=== PATIENT | male | born 1945 | race Caucasian/White ===

== ENCOUNTER → 2017-11-05 10:41 | Outpatient (CLI) | payer MEDICARE, OTHER, SELFPAY ==
--- NOTE | 2017-11-05 10:48 | XR_ITS ---
EXAM: XR lumbar spine min 4V HISTORY: Back pain and ORDERING PHYSICIAN: Michael Tejeda PATIENT AGE: 72 years COMPARISON: None FINDINGS: A prominent flowing osteophytes are present involving the lumbar spine from L1 to S1 most prominent at L2-L3 and L5-S1 hypertrophic changes also noted involving the heads from L3 to S1. No fracture or dislocation. There may be be narrowing of the canal at L4-L5 and L5-S1. There is fusion of the SI joints on both sides. IMPRESSION: Diffuse idiopathic skeletal hyperostosis of the lumbar spine. No acute fracture. Bilateral sacroiliac fusion Possible canal stenosis in the lower lumbar spine which may be confirmed with MRI
--- NOTE | 2017-11-05 10:50 | XR_ITS ---
XR pelvis 1-2V HISTORY: Right hip pain ITS.REASON: RT HIP PAIN,RT BACK PAIN ORDERING PHYSICIAN: Michael Tejeda PATIENT AGE: 72 years COMPARISON: None FINDINGS: No obvious acute fracture or dislocation. There is fusion of at least the right SI joint. Hypertrophic changes are present along the inferior aspect of the superior pubic rami. There are mild osteoarthritic changes of the hips. IMPRESSION: No acute finding. 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
== END ==
PROVIDERS: PCP Internal Medicine; Visit Provider Internal Medicine
DX: M25.551 Pain in right hip (principal); M54.5 Low back pain; R10.2 Pelvic and perineal pain
CPT/HCPCS: 72110; 72170

== ENCOUNTER → 2017-11-12 15:51 | Outpatient (CLI) | payer MEDICARE, OTHER, SELFPAY ==
--- NOTE | 2017-11-12 15:55 | MR_ITS ---
MR lumbar spine wo con, The MR 3-d myelogram/MRCP HISTORY: Low back pain, right side sciatica, right hip pain ITS.REASON: LUMBAGO RIGHT SCIATICA ORDERING PHYSICIAN: Michael Tejeda PATIENT AGE: 72 years COMPARISON: Radiograph 11/05/2017 TECHNIQUE: Standard multiplanar multiecho sequences are performed without contrast. 3-D MIP and myelographic images are also rendered and reviewed FINDINGS: The spinal cord ends at the L1-L2 level. There is normal alignment. There are prominent bridging osteophytes anteriorly consistent with diffuse etiopathic skeletal hyperostosis T12-L1: Unremarkable. L1-L2: Mild disc desiccation with mild facet and ligamentum flavum hypertrophy with minimal right lateral recess narrowing. L2-L3: Facet and ligamentum flavum hypertrophy with bilateral lateral recess narrowing L3-L4: Facet and ligamentum hypertrophy with mild transverse narrowing of the canal with mild bilateral foraminal and lateral recess narrowing. L4-L5: Degenerative disc disease with bulging disc along with the facet and ligamentum flavum hypertrophy with moderate to severe bilateral lateral recess narrowing and severe left-sided foraminal narrowing. There is 2 mm anterolisthesis of L4. There is a left lateral disc osteophyte complex contributing to the foraminal narrowing. There is a prominent bridging osteophyte anteriorly and on the right. L5-S1: Degenerative disc disease with bulging disc along with facet and ligamentum flavum hypertrophy . There is minimal central disc protrusion. There is transverse narrowing of the canal. Right lateral foraminal narrowing is present from a disc osteophyte complex. There may be some impingement upon the exiting L5 nerve root. IMPRESSION: 1. DISH of the lumbar spine 2. Multilevel degenerative disc disease with facet and ligamentum flavum hypertrophy as described above. Please see above detailed description at each level. 3. Degenerative disc disease at L4-L5 with bulging disc along with the facet and ligamentum flavum hypertrophy with moderate to severe bilateral lateral recess narrowing and severe left-sided foraminal narrowing. There is 2 mm anterolisthesis of L4. There is a left lateral disc osteophyte complex contributing to the foraminal narrowing. There is a prominent bridging osteophyte anteriorly and on the right. 4. Degenerative disc disease at L5-S1 with bulging disc along with facet and ligamentum flavum hypertrophy . There is minimal central disc protrusion. There is transverse narrowing of the canal. Right lateral foraminal narrowing is present from a disc osteophyte complex. There may be some impingement upon the exiting L5 nerve root.
== END ==
PROVIDERS: Family Provider Internal Medicine; PCP Internal Medicine; Visit Provider Internal Medicine
DX: M54.41 Lumbago with sciatica, right side (principal)
CPT/HCPCS: 72148; 76376

== ENCOUNTER → 2017-12-07 11:04 | Outpatient (POV) | payer MEDICARE, OTHER, SELFPAY ==
[2017-12-07 11:18] VITALS: BP 150/88; PULSE 72; RESP 20; O2SAT 98; BMI 32.8
--- NOTE | 2017-12-07 12:07 | HMH.PMCON ---
Assessment and Plan (1) Piriformis syndrome Current visit: Yes Status: Chronic Category: Medical Code(s): G57.00 - Lesion of sciatic nerve, unspecified lower limb (2) Facet arthropathy Current visit: Yes Status: Chronic Category: Medical Code(s): M46.90 - Unspecified inflammatory spondylopathy, site unspecified (3) Degenerative disc disease, lumbar Current visit: Yes Status: Chronic Category: Medical Code(s): M51.36 - Other intervertebral disc degeneration, lumbar region (4) Bulging disc Current visit: Yes Status: Chronic Category: Medical - Assessment and plan all Dx Assessment and Plan for all problems:: Patient and I had a long discussion about his MRI. I explained about his bulging disks and facet arthropathy. We discussed multiple injections. We also discussed his tenderness over his right piriformis. I believe that starting with a facet joint injection L3-L4 L4-L5 L5-S1 on the right side will help us determine better where his pain is coming from. Believe that this would be appropriate due to is axial nature of his back pain. We discussed potentially doing a piriformis injection at some point. I want to follow-up with him after his facet joint injections to see if this is relieved any of his pain. Patient has tried and failed anti-inflammatories and chiropractic therapy and stretching therapy. Patient would like to remain active and play tennis and pickleball. Patient and I discussed if his facet joint injections relieve the pain that we may eventually do a rhizotomy of these levels. This note was dictated using voice recognition software and may contain errors or omissions HPI - Data of Consult Consult date: 12/07/17 Requesting Physician: Perla Reyna APRN Primary Care Provider: Michael Tejeda [facility] Provider: Michael Tejeda - Consult Narrative Reason for consult: Back pain History of present illness: Mr. Douglas is a 72 year old male presents today with a complaint of back pain mostly on the right lower side. Patient states that the onset was gradual in nature. Movement increases pain while sitting decreases pain. Patient denies any radiation into his lower legs. Patient is currently on Plavix from Dr. Tejeda. Patient is interested in discussing his MRI results and finding interventional therapies that help keep him more active. He rates his pain a 7 out of 10 today. CC: Perla Reyna APRN [facility] History I have reviewed the patient's past medical history: Yes Medical History: Reports:: Diabetes Mellitus Type 2, Hyperlipidemia, Hypertension, Myocardial Infarction (09/01/1999) Denies:: Diabetes Mellitus Type 1 Other Surgeries: Yes: Cardiac Catheterization, Cardiac Surgery, Coronary Stent - *Social History Educational Level: Attended Graduate School Smoking Status: Never smoker Alcohol Intake: never Occupational Status: employed - Psychiatric History Expresses thoughts of harming self/others: None Suicide Plan Description: No Plan *Family Hx:: Non-contributory Review of Systems - Review of Systems ROS General: no recent weight change, no fever, no sleep disturbances Respiratory: no cough, no shortness of air, no recurring pulmonary infections Cardiovascular/Peripheral Vascular: No chest pain, No palpitations, no edema, no shortness of breath. Gastrointestinal: no incontinence, normal bowel movements reported Genitourinary: no incontinence Musculoskeletal: Back pain, right buttock pain Psychiatric: normal mood/ affect, [denies depression], [denies anxiety] Neurological: [Weakness at time in right lower extremity], [denies balance issues] Meds Home Medications Medication Instructions Recorded Confirmed Type Amlodipine Besylate [Norvasc 5mg 5 mg PO DAILY 12/07/17 12/07/17 History tablet] Clopidogrel Bisulfate [Plavix] 75 mg PO DAILY 12/07/17 12/07/17 History Empagliflozin [Jardiance] 25 mg PO DAILY 12/07/17 12/07/17 History Feno
--- NOTE | 2017-12-07 12:15 | P.CONS_ITS ---
Assessment and Plan (1) Piriformis syndrome Current visit: Yes Status: Chronic Category: Medical Code(s): G57.00 - Lesion of sciatic nerve, unspecified lower limb (2) Facet arthropathy Current visit: Yes Status: Chronic Category: Medical Code(s): M46.90 - Unspecified inflammatory spondylopathy, site unspecified (3) Degenerative disc disease, lumbar Current visit: Yes Status: Chronic Category: Medical Code(s): M51.36 - Other intervertebral disc degeneration, lumbar region (4) Bulging disc Current visit: Yes Status: Chronic Category: Medical - Assessment and plan all Dx Assessment and Plan for all problems:: Patient and I had a long discussion about his MRI. I explained about his bulging disks and facet arthropathy. We discussed multiple injections. We also discussed his tenderness over his right piriformis. I believe that starting with a facet joint injection L3-L4 L4-L5 L5-S1 on the right side will help us determine better where his pain is coming from. Believe that this would be appropriate due to is axial nature of his back pain. We discussed potentially doing a piriformis injection at some point. I want to follow-up with him after his facet joint injections to see if this is relieved any of his pain. Patient has tried and failed anti-inflammatories and chiropractic therapy and stretching therapy. Patient would like to remain active and play tennis and pickleball. Patient and I discussed if his facet joint injections relieve the pain that we may eventually do a rhizotomy of these levels. This note was dictated using voice recognition software and may contain errors or omissions HPI - Data of Consult Consult date: 12/07/17 Requesting Physician: Perla Reyna APRN Primary Care Provider: Michael Tejeda [facility] Provider: Michael Tejeda - Consult Narrative Reason for consult: Back pain History of present illness: Mr. Douglas is a 72 year old male presents today with a complaint of back pain mostly on the right lower side. Patient states that the onset was gradual in nature. Movement increases pain while sitting decreases pain. Patient denies any radiation into his lower legs. Patient is currently on Plavix from Dr. Tejeda. Patient is interested in discussing his MRI results and finding interventional therapies that help keep him more active. He rates his pain a 7 out of 10 today. CC: Perla Reyna APRN [facility] History I have reviewed the patient's past medical history: Yes Medical History: Reports:: Diabetes Mellitus Type 2, Hyperlipidemia, Hypertension, Myocardial Infarction (09/01/1999) Denies:: Diabetes Mellitus Type 1 Other Surgeries: Yes: Cardiac Catheterization, Cardiac Surgery, Coronary Stent - *Social History Educational Level: Attended Graduate School Smoking Status: Never smoker Alcohol Intake: never Occupational Status: employed - Psychiatric History Expresses thoughts of harming self/others: None Suicide Plan Description: No Plan *Family Hx:: Non-contributory Review of Systems - Review of Systems ROS General: no recent weight change, no fever, no sleep disturbances Respiratory: no cough, no shortness of air, no recurring pulmonary infections Cardiovascular/Peripheral Vascular: No chest pain, No palpitations, no edema, no shortness of breath. Gastrointestinal: no incontinence, normal bowel movements reported Genitourinary: no incontinence Musculoskeletal: Back pain, right buttock pain Psychiatric: normal mood/ affect, [denies depression], [denies anxiety]
== END ==
PROVIDERS: Family Provider Internal Medicine; PCP Internal Medicine; Visit Provider Clinical Nurse Specialist Family Health
DX: G57.00 Lesion of sciatic nerve, unspecified lower limb (principal); M46.90 Unspecified inflammatory spondylopathy, site unspecified; M51.36 Other intervertebral disc degeneration, lumbar region
CPT/HCPCS: 99202

== ENCOUNTER 2017-12-09 09:58 | Emergency (ER) | payer MEDICARE, OTHER, SELFPAY ==
[2017-12-09 10:11] VITALS: BP 139/79; PULSE 98; RESP 18; TEMP 36.8; O2SAT 98; BMI 32.8
[2017-12-09 10:25] LABS: UTC Influenza A Antigen Negative (Negative); UTC Influenza B Antigen Negative (Negative)
--- NOTE | 2017-12-09 10:29 | HMH.EDUTC ---
[facility] [place] Disposition Clinical Impression: URI (upper respiratory infection) Qualifiers: URI type: unspecified URI Qualified Code(s): J06.9 - Acute upper respiratory infection, unspecified Disposition: Home, Self-Care Condition on Discharge: Good Instructions: Sore Throat, DI for Cough -- Adult, DI for Sinusitis Additional Instructions: * Monitor Temp. Tylenol and/or Ibuprofen as needed. ER if fever is no less than 101 despite alternating Tylenol and Ibuprofen * Encourage fluids, water, Gatorade, powerade, pedialyte if /toddler/or child * Warm salt water gargles for throat irritation *Warm fluids *Sore throat lozenges *Sleep elevated *humidifier or vaporizer Lots of rest Increase fluids, water, Gatorade, powerade *Flonase 2 sprays each nostril daily but may take 2-3 days to notice improvement with it Follow up IMMEDIATELY for new or worsening of symptoms OR no noticeable improvement over the next 48-72 hours. 911 immediately for any life threatening symptoms such as chest pain or difficulty breathing Prescriptions: Dextromethorphan Polistirex [Delsym] 10 ml PO Q12H #300 alfredito.er.12h Fluticasone Propionate [Flonase 50mcg nasal spray 16gm] 2 spr NS DAILY #1 bottle Referrals: Michael Tejeda [Primary Care Provider] - Time of Disposition: 10:43 Medical Decision Making - Medical Records Medical records reviewed: Yes: I reviewed the patient's medical records. - Clyde Inquiry Pt receiving controlled substance: No Clyde was queried for this patient: No Vital Signs: 12/09/17 10:11 Temperature 98.3 F Temperature Source Temporal Artery Scan Pulse Rate [Right] 98 H Respiratory Rate 18 Blood Pressure [Right Arm] 139/79 Blood Pressure Mean [Right Arm] 99 Blood Pressure Source [Right Arm] Manual Cuff/ Doppler Blood Pressure Position [Right Arm] Sitting 02 Sat by Pulse Oximetry 98 Oxygen Delivery Method Room Air - Lab Data Lab results reviewed: Yes: I reviewed the patient's lab results. Lab Results 12/09/17 10:24: Influenza Type A Ag Negative, Influenza Type B Ag Negative [facility] [place] HPI - General Stated complaint: congested cold Time Seen by Provider: 12/09/17 10:29 Mode of Arrival: Ambulatory Source of Information: Patient Limitations: No Limitations Description of Symptoms (Recalled from Triage Doc. by RN): COUGH, CONGESTION, BODY ACHES HEENT Symptoms (Recalled from RN notes): Yes Resp Symptoms (Recalled from RN notes): No Skin Symptoms (Recalled from RN notes): No MS Symptoms (Recalled from RN notes): No Functional Status (Recalled from RN notes): N - History of Present Illness Provider Complaint: Patient states that he has been having cough, nasal congestion irritated throat and body aches State that he was worried that he may be getting the flu State that he hasn't had a fever that he knows of but has been feeling a little flush State that he decided to come in and get checked out to make sure he wasn't contagious or had the flu - Related Data Home Medications Medication Instructions Recorded Confirmed Amlodipine Besylate [Norvasc 5mg 5 mg PO DAILY 12/07/17 12/09/17 tablet] Clopidogrel Bisulfate [Plavix] 75 mg PO DAILY 12/07/17 12/09/17 Empagliflozin [Jardiance] 25 mg PO DAILY 12/07/17 12/09/17 Fenofibrate 160 mg PO DAILY 12/07/17 12/09/17 Metformin HCl 1,000 mg PO BID 12/07/17 12/09/17 Ramipril 10 mg PO DAILY 12/07/17 12/09/17 Rosuvastatin Calcium 20 mg PO DAILY 12/07/17 12/09/17 Previous Rx's Medication Instructions Recorded Dextromethorphan Polistirex 10 ml PO Q12H #300 alfredito.er.12h 12/09/17 [Delsym] Fluticasone Propionate [Flonase 2 spr NS DAILY #1 bottle 12/09/17 50mcg nasal spray 16gm] Allergies Allergy/AdvReac Type Severity Reaction Status Date / Time No Known Allergies Allergy Verified 12/07/17 11:08 - Worker's Comp Is this a Worker's Comp case?: No [facility] History I have reviewed the patient's past medical history: Yes Medical History: Reports:: Diabet
--- NOTE | 2017-12-09 10:35 | ED_ITS ---
[facility] [place] Clinical Impression: URI (upper respiratory infection) Qualifiers: URI type: unspecified URI Qualified Code(s): J06.9 - Acute upper respiratory infection, unspecified Disposition: Home, Self-Care Condition on Discharge: Good Instructions: Sore Throat, DI for Cough -- Adult, DI for Sinusitis Additional Instructions: * Monitor Temp. Tylenol and/or Ibuprofen as needed. ER if fever is no less than 101 despite alternating Tylenol and Ibuprofen * Encourage fluids, water, Gatorade, powerade, pedialyte if /toddler/or child * Warm salt water gargles for throat irritation *Warm fluids *Sore throat lozenges *Sleep elevated *humidifier or vaporizer Lots of rest Increase fluids, water, Gatorade, powerade *Flonase 2 sprays each nostril daily but may take 2-3 days to notice improvement with it Follow up IMMEDIATELY for new or worsening of symptoms OR no noticeable improvement over the next 48-72 hours. 911 immediately for any life threatening symptoms such as chest pain or difficulty breathing Prescriptions: Dextromethorphan Polistirex [Delsym] 10 ml PO Q12H #300 alfredito.er.12h Fluticasone Propionate [Flonase 50mcg nasal spray 16gm] 2 spr NS DAILY #1 bottle Referrals: Michael Tejeda [Primary Care Provider] - Time of Disposition: 10:43 Medical Decision Making - Medical Records Medical records reviewed: Yes: I reviewed the patient's medical records. - Clyde Inquiry Pt receiving controlled substance: No Clyde was queried for this patient: No Vital Signs: 12/09/17 10:11 Temperature 98.3 F Temperature Source Temporal Artery Scan Pulse Rate [Right] 98 H Respiratory Rate 18 Blood Pressure [Right Arm] 139/79 Blood Pressure Mean [Right Arm] 99 Blood Pressure Source [Right Arm] Manual Cuff/ Doppler Blood Pressure Position [Right Arm] Sitting 02 Sat by Pulse Oximetry 98 Oxygen Delivery Method Room Air - Lab Data Lab results reviewed: Yes: I reviewed the patient's lab results. Lab Results 12/09/17 10:24: Influenza Type A Ag Negative, Influenza Type B Ag Negative [facility] [place] - General Stated complaint: congested cold Time Seen by Provider: 12/09/17 10:29 Mode of Arrival: Ambulatory Source of Information: Patient Limitations: No Limitations Description of Symptoms (Recalled from Triage Doc. by RN): COUGH, CONGESTION, BODY ACHES HEENT Symptoms (Recalled from RN notes): Yes Resp Symptoms (Recalled from RN notes): No Skin Symptoms (Recalled from RN notes): No MS Symptoms (Recalled from RN notes): No Functional Status (Recalled from RN notes): N - History of Present Illness Provider Complaint: Patient states that he has been having cough, nasal congestion irritated throat and body aches State that he was worried that he may be getting the flu State that he hasn't had a fever that he knows of but has been feeling a little flush State that he decided to come in and get checked out to make sure he wasn't contagious or had the flu - Related Data Home Medications Medication Instructions Recorded Confirmed Amlodipine Besylate [Norvasc 5mg 5 mg PO DAILY 12/07/17 12/09/17 tablet] Clopidogrel Bisulfate [Plavix] 75 mg PO DAILY 12/07/17 12/09/17 Empagliflozin [Jardiance] 25 mg PO DAILY 12/07/17 12/09/17 Fenofibrate 160 mg PO DAILY 12/07/17 12/09/17 Metformin HCl 1,000 mg PO BID 12/07/17 12/09/17 Ramipril 10 mg PO DAILY 12/07/17 12/09/17
[2017-12-09 10:54] VITALS: BP 139/79; PULSE 98; RESP 18; TEMP 36.8
== END 2017-12-09 11:10 | disposition home or self-care (01) ==
PROVIDERS: Emergency Provider Nurse Practitioner; Family Provider Internal Medicine; PCP Internal Medicine
DX: J06.9 Acute upper respiratory infection, unspecified (principal); M79.1 Myalgia; E11.9 Type 2 diabetes mellitus without complications; Z79.84 Long term (current) use of oral hypoglycemic drugs; Z79.01 Long term (current) use of anticoagulants; E78.5 Hyperlipidemia, unspecified; I10 Essential (primary) hypertension; I25.2 Old myocardial infarction; Z95.5 Presence of coronary angioplasty implant and graft
CPT/HCPCS: G0463; 87804; 96372; 99201

== ENCOUNTER → 2018-01-24 11:15 | Outpatient (POV) | payer MEDICARE, OTHER, SELFPAY ==
[2018-01-24 11:57] VITALS: BP 141/77; PULSE 72; RESP 18; TEMP 36.7; O2SAT 98; BMI 32.1
--- NOTE | 2018-01-24 12:12 | HMH.PAINSOAP ---
[facility] Pain Management SOAP Note Subjective:: This patient is a pleasant 72-year-old white male who we are seeing for low back pain with right hip pain. He was scheduled for facet joint injections however his pain primarily seems to be over his right SI A. Pain pattern has changed a little bit since his evaluation with my nurse practitioner. Most of his pain symptoms are concentrated over his right hip worse when walking. He also feels that his hip gives way. This does radiate somewhat into the groin. He is tender over his right SI joint. He does have a positive Aylin's test on the right side. I believe he would benefit from a right SI joint injection under fluoroscopy. Objective:: Alert and oriented ?3 in no acute distress. Tender over the right SI joint. Positive Aylin's test on the right side. Motor strength of the lower extremities is 5/5. There is no gross sensory deficit. Assessment:: Sacroiliitis Plan:: We will seek approval and plan on a right SI joint injection under fluoroscopy. If this does not give him much benefit we may revert back to bilateral facet joint injections of L3-4,L4-L5 and L5-S1.
== END ==
PROVIDERS: Family Provider Internal Medicine; PCP Internal Medicine; Visit Provider Anesthesiology
DX: M46.1 Sacroiliitis, not elsewhere classified (principal)
CPT/HCPCS: 99212

== ENCOUNTER → 2018-02-25 09:02 | Outpatient (POV) | payer MEDICARE, OTHER, SELFPAY ==
[2018-02-25 09:13] VITALS: BP 150/86; PULSE 75; RESP 18; TEMP 36.3; O2SAT 92; BMI 32.1
--- NOTE | 2018-02-25 09:28 | HMH.PAINSOAP ---
[facility] Pain Management SOAP Note Subjective:: This patient is a pleasant 72-year-old white male who we are seeing for low back pain and right hip pain which radiates into the groin. He had a right SI joint injection with no relief of his pain symptoms. His MRI does show degenerative changes with bulging disc and facet arthropathy at L4-L5 and L5-S1. There is some impingement upon the exiting L5 nerve root with significant right neural foraminal narrowing at L5-S1. Since he did not get any benefit from his right SI joint injection, he may get benefit from a lumbar epidural steroid injection since he does have significant pathology in his lumbar spine with neural foraminal narrowing. We will seek approval and plan on a lumbar epidural steroid injection under fluoroscopy. He has tried and failed all other conservative therapy including physical therapy and oral medications for 3 months. Most of his pain is in the back radiating into the right groin down the right leg. Objective:: Alert and oriented ?3 in no acute distress. Patient does have a normal gait. Motor strength of the lower extremities is 5/5. There is no gross sensory deficit. There is tenderness over lower lumbar spine. Assessment:: Degenerative disc disease of lumbar spine with bulging disc, facet hypertrophy and neuroforaminal narrowing. Lumbar radiculopathy symptoms. Plan:: We will seek approval and plan on a lumbar epidural steroid injection at L5-S1. Most of this patient's pain is on the right side. We will orient towards the right side on the L5-S1 lumbar epidural. We will also put him on tramadol 50 mg 3 times a day to help with his pain symptoms in the interim. His Clyde and urine drug screen are all appropriate.
--- NOTE | 2018-02-25 09:31 | P.CONS_ITS ---
[facility] Pain Management SOAP Note Subjective:: This patient is a pleasant 72-year-old white male who we are seeing for low back pain and right hip pain which radiates into the groin. He had a right SI joint injection with no relief of his pain symptoms. His MRI does show degenerative changes with bulging disc and facet arthropathy at L4-L5 and L5- S1. There is some impingement upon the exiting L5 nerve root with significant right neural foraminal narrowing at L5-S1. Since he did not get any benefit from his right SI joint injection, he may get benefit from a lumbar epidural steroid injection since he does have significant pathology in his lumbar spine with neural foraminal narrowing. We will seek approval and plan on a lumbar epidural steroid injection under fluoroscopy. He has tried and failed all other conservative therapy including physical therapy and oral medications for 3 months. Most of his pain is in the back radiating into the right groin down the right leg. Objective:: Alert and oriented ?3 in no acute distress. Patient does have a normal gait. Motor strength of the lower extremities is 5/5. There is no gross sensory deficit. There is tenderness over lower lumbar spine. Assessment:: Degenerative disc disease of lumbar spine with bulging disc, facet hypertrophy and neuroforaminal narrowing. Lumbar radiculopathy symptoms. Plan:: We will seek approval and plan on a lumbar epidural steroid injection at L5-S1. Most of this patient's pain is on the right side. We will orient towards the right side on the L5-S1 lumbar epidural. We will also put him on tramadol 50 mg 3 times a day to help with his pain symptoms in the interim. His Clyde and urine drug screen are all appropriate.
== END ==
PROVIDERS: Family Provider Internal Medicine; PCP Internal Medicine; Visit Provider Anesthesiology
DX: M54.16 Radiculopathy, lumbar region (principal)
CPT/HCPCS: 99212

== ENCOUNTER 2018-03-18 08:02 | Day surgery (SDC) | payer MEDICARE, OTHER, SELFPAY ==
[2018-03-18 08:12] VITALS: BP 129/72; PULSE 82; RESP 18; TEMP 36.4; O2SAT 95; BMI 32.1
[2018-03-18 08:37] VITALS: BP 120/79; BP 125/80; PULSE 69; PULSE 70; RESP 18; O2SAT 97; O2SAT 98
[2018-03-18 08:42] VITALS: BP 131/78; PULSE 70; RESP 18; TEMP 36.4; O2SAT 95
--- NOTE | 2018-03-18 08:43 | P.PCN_ITS ---
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 Pain does radiate into the groin. He now has some low back pain with radiation into the left hip. MRI does show degenerative changes with bulging disc and facet arthropathy at L4-L5 and L5- S1. There is some impingement upon the exiting L5 nerve root with significant right neural foraminal narrowing at L5-S1. He did not get any benefit from the previous right SI joint injection. We will do a lumbar epidural steroid injection today to see if this gives him benefit. Procedure Details:: Lumbar epidural steroid injection under fluoroscopy Informed consent was obtained and the risk and benefits of the procedure was explained to the patient. The patient was taken to the procedure room. The patient was placed prone on the procedure table. The patient was prepped and draped in sterile fashion. C-arm fluoroscopy was used to view the lumbar spine. Skin and subcutaneous tissues were anesthetized using lidocaine. I placed an 18-gauge epidural needle and advanced into the L5-S1 interspace using fluoroscopic guidance and [id number] to air. After confirmation of needle placement in the epidural space with dye I injected 2 mL of lidocaine 1.5 % with Depo-Medrol 80 mg. Patient tolerated the procedure well with no complications. Plan and Disposition:: We will follow-up with him in 2 weeks. We will reevaluate his symptoms at that time. He is to continue on his tramadol 50 mg up to 3 times a day as needed.
== END 2018-03-18 08:46 | disposition home or self-care (01) ==
LOC: SC.PAINP 08:04
PROVIDERS: Family Provider Internal Medicine; PCP Internal Medicine; Visit Provider Anesthesiology
DX: M51.16 Intervertebral disc disorders with radiculopathy, lumbar region (principal); M25.80 Other specified joint disorders, unspecified joint
CPT/HCPCS: 62323; J1040; Q9966

== ENCOUNTER → 2018-05-02 13:55 | Outpatient (POV) | payer MEDICARE, OTHER, SELFPAY ==
[2018-05-02 14:30] VITALS: BP 129/74; PULSE 83; RESP 18; O2SAT 98; BMI 32.8
--- NOTE | 2018-05-02 16:02 | P.CONS_ITS ---
[facility] Pain Management SOAP Note Subjective:: Patient is a pleasant 71-year-old white male who we are treating for back pain. Patient status post one round of facet joint injections at L4-L5 L5-S1 bilaterally. He states he has had significant relief with this. Patient has had a resolution of his right hip pain as well. Patient is doing well at this time and would like to follow-up on an as-needed basis. I believe that this is good idea. Patient is currently going through some dermatological procedures for skin cancer. He rates his pain a 3 out of 10 today. ROS General: no recent weight change, no fever, no sleep disturbances Respiratory: no cough, no shortness of air, no recurring pulmonary infections Cardiovascular/Peripheral Vascular: No chest pain, No palpitations, no edema, no shortness of breath. Gastrointestinal: no incontinence, normal bowel movements reported Genitourinary: no incontinence Musculoskeletal: Low back pain Psychiatric: normal mood/ affect Neurological: [denies weakness in extremities], [denies balance issues] Objective:: Physical Exam General: Alert and oriented x3, no acute distress, pleasant and cooperative, [ on room air] Lungs: Resps E/U, Symmetrical chest expansion Eyes: PERRL Musculoskeletal: Flexion and extension of lumbar spine somewhat guarded secondary to pain, deep tendon reflexes normal, strength in upper and lower extremities [5/5], slightly antalgic gait noted Neurological: speech clear, valet parking attendant equal, no gross sensory deficits Assessment:: Degenerative disc disease lumbar spine with bulging disc, facet hypertrophy and neural foraminal narrowing with lumbar radiculopathy symptoms Plan:: We will follow-up with this patient on an as-needed basis. Patient instructed to call the office if he has any issues. This note was dictated using voice recognition software and may contain errors or omissions
== END ==
PROVIDERS: Family Provider Internal Medicine; PCP Internal Medicine; Visit Provider Clinical Nurse Specialist Family Health
DX: M54.16 Radiculopathy, lumbar region (principal)
CPT/HCPCS: 99212

== ENCOUNTER → 2019-05-08 11:05 | Outpatient (POV) | payer MEDICARE, OTHER, SELFPAY ==
[2019-05-08 11:51] VITALS: BP 129/82; PULSE 86; RESP 18; O2SAT 98; BMI 32.1
--- NOTE | 2019-05-08 12:24 | HMH.PAINSOAP ---
[facility] Pain Management SOAP Note Subjective:: Patient is a 74-year-old white male who presents today for follow-up. Patient was seen last year at this time. After a round of facet joint injections at L4-L5 L5-S1 bilaterally he stated he had significant relief along with the resolution of his right hip pain. Today he states that his hip pain has returned and is having some low back pain. Patient and I had a long discussion in regards to his MRI. Patient states that he spoke with Dr. Sarmiento at his last visit and due to the fact that his sugar was elevated postprocedure that Dr. Sarmiento is going to decrease the steroids. He rates his pain today an 8 out of 10. Patient does have an MRI showing L5 nerve root impingement on the right side. Patient and I also briefly discussed RFA along with getting some diagnostic imaging of his hip just to ensure that there are no issues. ROS General: no recent weight change, no fever, no sleep disturbances Respiratory: no cough, no shortness of air, no recurring pulmonary infections Cardiovascular/Peripheral Vascular: No chest pain, No palpitations, no edema, no shortness of breath. Gastrointestinal: no incontinence, normal bowel movements reported Genitourinary: no incontinence Musculoskeletal: This is not your hip back pain, right hip pain Psychiatric: normal mood/ affect Neurological: [denies weakness in extremities], [denies balance issues] Objective:: Physical Exam General: Alert and oriented x3, no acute distress, pleasant and cooperative, [on room air] Lungs: Resps E/U, Symmetrical chest expansion, Eyes: PERRL Musculoskeletal: Flexion and extension of lumbar spine somewhat guarded secondary to pain, deep tendon reflexes normal, strength in upper and lower extremities [5/5], slightly antalgic gait noted, positive facet loading lumbar spine bilaterally Neurological: speech clear, ambulance mechanic equal, no gross sensory deficits Assessment:: Degenerative disc disease lumbar spine with lumbar facet arthropathy Plan:: Patient is on Plavix we will ensure that he can come off prior to his injection. We will schedule him for an L4-L5 L5-S1 bilateral facet joint injection since this resolved his issue at his last procedure. We will also get an x-ray of his hip just to rule out any issues. Dr. Sarmiento has reviewed this note and agrees with this plan of care. This note was dictated using voice recognition software and may contain errors or omissions Pain Management Hx Components *Have you ever received a pneumonia vaccine?: Yes *Have you received a flu vaccine this season?: Yes - *Social History *Occupational Status:: other *Travel in the last 8 weeks: None
--- NOTE | 2019-05-08 12:34 | P.CONS_ITS ---
[facility] Pain Management SOAP Note Subjective:: Patient is a 74-year-old white male who presents today for follow-up. Patient was seen last year at this time. After a round of facet joint injections at L4- L5 L5-S1 bilaterally he stated he had significant relief along with the resolution of his right hip pain. Today he states that his hip pain has returned and is having some low back pain. Patient and I had a long discussion in regards to his MRI. Patient states that he spoke with Dr. Sarmiento at his last visit and due to the fact that his sugar was elevated postprocedure that Dr. Sarmiento is going to decrease the steroids. He rates his pain today an 8 out of 10. Patient does have an MRI showing L5 nerve root impingement on the right side. Patient and I also briefly discussed RFA along with getting some diagnostic imaging of his hip just to ensure that there are no issues. ROS General: no recent weight change, no fever, no sleep disturbances Respiratory: no cough, no shortness of air, no recurring pulmonary infections Cardiovascular/Peripheral Vascular: No chest pain, No palpitations, no edema, no shortness of breath. Gastrointestinal: no incontinence, normal bowel movements reported Genitourinary: no incontinence Musculoskeletal: This is not your hip back pain, right hip pain Psychiatric: normal mood/ affect Neurological: [denies weakness in extremities], [denies balance issues] Objective:: Physical Exam General: Alert and oriented x3, no acute distress, pleasant and cooperative, [on room air] Lungs: Resps E/U, Symmetrical chest expansion, Eyes: PERRL Musculoskeletal: Flexion and extension of lumbar spine somewhat guarded secondary to pain, deep tendon reflexes normal, strength in upper and lower extremities [5/5], slightly antalgic gait noted, positive facet loading lumbar spine bilaterally Neurological: speech clear, conveyor belt operator equal, no gross sensory deficits Assessment:: Degenerative disc disease lumbar spine with lumbar facet arthropathy Plan:: Patient is on Plavix we will ensure that he can come off prior to his injection. We will schedule him for an L4-L5 L5-S1 bilateral facet joint injection since this resolved his issue at his last procedure. We will also get an x-ray of his hip just to rule out any issues. Dr. Sarmiento has reviewed this note and agrees with this plan of care. This note was dictated using voice recognition software and may contain errors or omissions Pain Management Hx Components *Have you ever received a pneumonia vaccine?: Yes *Have you received a flu vaccine this season?: Yes - *Social History *Occupational Status:: other *Travel in the last 8 weeks: None
--- NOTE | 2019-05-11 13:41 | PC.NURSE ---
APPROVAL TO DISCONTINUE PLAVIX 75MG 7 DAYS PRIOR TO INJECTION OBTAINED BY DR ENGLE. PT NOTIFIED.
== END ==
PROVIDERS: PCP Internal Medicine; Visit Provider Clinical Nurse Specialist Family Health
DX: M51.36 Other intervertebral disc degeneration, lumbar region (principal); M54.06 Panniculitis affecting regions of neck and back, lumbar region
CPT/HCPCS: 99212

== ENCOUNTER → 2019-05-23 14:14 | Outpatient (CLI) | payer MEDICARE, OTHER, SELFPAY ==
--- NOTE | 2019-05-23 14:18 | XR_ITS ---
PROCEDURE: XR HIP RT 2-3V W/PELVIS CLINICAL INDICATION: RT HIP PAIN COMPARISON: PEL1V XR pelvis 1-2V from 11/05/2017 FINDINGS: There are mild osteoarthritic changes of the right hip. There partial fusion of the right SI joint. Bony exostosis is present along the inferior aspect of the superior pubic ramus and may be due to old fracture. Similar finding is present involving the left superior pubic ramus. No acute fracture or dislocation is evident. 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
== END ==
PROVIDERS: PCP Internal Medicine; Visit Provider Clinical Nurse Specialist Family Health
DX: M25.551 Pain in right hip (principal)
CPT/HCPCS: 73502

== ENCOUNTER → 2019-07-10 13:50 | Outpatient (POV) | payer MEDICARE, OTHER, SELFPAY ==
[2019-07-10 14:15] VITALS: BP 135/77; PULSE 89; RESP 18; O2SAT 98; BMI 32.8
--- NOTE | 2019-07-11 08:41 | HMH.PAINSOAP ---
[facility] Pain Management SOAP Note Subjective:: Patient is a pleasant 74-year-old white male who presents today for follow-up after medial branch block at L4-L5 L5-S1 bilaterally. Patient's hip pain is resolved. He rates his pain a 3 out of 10 today. Overall disease as well he would like to repeat this. Patient is able to play pickle ball without any issues after his injection. Patient also wants to discuss his knees after we get his back straightened out. We discussed potential rhizotomy. He is not on any anticoagulation therapy. He has no active infections. He is continuing a home stretching program. ROS General: no recent weight change, no fever, no sleep disturbances Respiratory: no cough, no shortness of air, no recurring pulmonary infections Cardiovascular/Peripheral Vascular: No chest pain, No palpitations, no edema, no shortness of breath. Gastrointestinal: no new onset incontinence, normal bowel movements reported Genitourinary: no new onset incontinence Musculoskeletal: Back pain Psychiatric: normal mood/ affect Neurological: [denies new onset weakness in extremities], [denies new onset balance issues] Objective:: Physical Exam General: Alert and oriented x3, no acute distress, pleasant and cooperative, [on room air] Lungs: Resps E/U, Symmetrical chest expansion, Eyes: PERRL Musculoskeletal: Flexion and extension of lumbar spine somewhat guarded secondary to pain, deep tendon reflexes normal, strength in upper and lower extremities [5/5], [abnormal gait noted] positive Kemps test Neurological: speech clear, focus puller equal, no gross sensory deficits Assessment:: 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 Given the efficacy of this I believe it would be beneficial. Patient will be seen after this and will begin to discuss potential rhizotomy or we will move on to treat his knee pain. Dr. Sarmienot has reviewed this note and agrees with this plan of care. This note was dictated using voice recognition software and may contain errors or omissions [facility] History I have reviewed the patient's past medical history: Yes Medical History: Reports:: Cancer (skin), Diabetes Mellitus Type 2, Hyperlipidemia, Hypertension, Myocardial Infarction (09/01/1999) Denies:: Diabetes Mellitus Type 1, MRSA, Seizures *Have you ever received a pneumonia vaccine?: Yes *Have you received a flu vaccine this season?: Yes Other Medical History: Denies: Blood Transfusion Reaction Other Surgeries: Yes: Cardiac Catheterization, Cardiac Surgery, Coronary Stent Amputation: No Fractures: No - *Social History Smoking Status: Former smoker Alcohol Intake: never *Occupational Status:: other Housing: house Household Members: spouse *Travel in the last 8 weeks: None Family Hx:: Coronary Artery Disease, Diabetes, Heart Attack
--- NOTE | 2019-07-11 08:45 | P.CONS_ITS ---
[facility] Pain Management SOAP Note Subjective:: Patient is a pleasant 74-year-old white male who presents today for follow-up after medial branch block at L4-L5 L5-S1 bilaterally. Patient's hip pain is resolved. He rates his pain a 3 out of 10 today. Overall disease as well he would like to repeat this. Patient is able to play pickle ball without any issues after his injection. Patient also wants to discuss his knees after we get his back straightened out. We discussed potential rhizotomy. He is not on any anticoagulation therapy. He has no active infections. He is continuing a home stretching program. ROS General: no recent weight change, no fever, no sleep disturbances Respiratory: no cough, no shortness of air, no recurring pulmonary infections Cardiovascular/Peripheral Vascular: No chest pain, No palpitations, no edema, no shortness of breath. Gastrointestinal: no new onset incontinence, normal bowel movements reported Genitourinary: no new onset incontinence Musculoskeletal: Back pain Psychiatric: normal mood/ affect Neurological: [denies new onset weakness in extremities], [denies new onset balance issues] Objective:: Physical Exam General: Alert and oriented x3, no acute distress, pleasant and cooperative, [on room air] Lungs: Resps E/U, Symmetrical chest expansion, Eyes: PERRL Musculoskeletal: Flexion and extension of lumbar spine somewhat guarded secondary to pain, deep tendon reflexes normal, strength in upper and lower extremities [5/5], [abnormal gait noted] positive Kemps test Neurological: speech clear, paper handler equal, no gross sensory deficits Assessment:: 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 Given the efficacy of this I believe it would be beneficial. Patient will be seen after this and will begin to discuss potential rhizotomy or we will move on to treat his knee pain. Dr. Sarmiento has reviewed this note and agrees with this plan of care. This note was dictated using voice recognition software and may contain errors or omissions [facility] History I have reviewed the patient's past medical history: Yes Medical History: Reports:: Cancer (skin), Diabetes Mellitus Type 2, Hyperlipidemia, Hypertension, Myocardial Infarction (09/01/1999) Denies:: Diabetes Mellitus Type 1, MRSA, Seizures *Have you ever received a pneumonia vaccine?: Yes *Have you received a flu vaccine this season?: Yes Other Medical History: Denies: Blood Transfusion Reaction Other Surgeries: Yes: Cardiac Catheterization, Cardiac Surgery, Coronary Stent Amputation: No Fractures: No - *Social History Smoking Status: Former smoker Alcohol Intake: never *Occupational Status:: other Housing: house Household Members: spouse *Travel in the last 8 weeks: None Family Hx:: Coronary Artery Disease, Diabetes, Heart Attack
== END ==
PROVIDERS: PCP Internal Medicine; Visit Provider Clinical Nurse Specialist Family Health
DX: M47.816 Spondylosis without myelopathy or radiculopathy, lumbar region (principal); M54.06 Panniculitis affecting regions of neck and back, lumbar region
CPT/HCPCS: 99212

== ENCOUNTER → 2020-07-12 16:35 | Outpatient (CLI) | payer MEDICARE, OTHER, SELFPAY ==
[2020-07-13 08:57] LABS: Covid-19 Nasal PCR Sendout UK NOT DETECTED
== END ==
PROVIDERS: PCP Internal Medicine; Visit Provider Family Medicine
DX: Z03.818 Encounter for observation for suspected exposure to other biological agents ruled out (principal)
CPT/HCPCS: U0003

== ENCOUNTER → 2020-09-13 15:00 | Outpatient (CLI) | payer MEDICARE, OTHER, SELFPAY | PROVIDERS: PCP Internal Medicine; Visit Provider Internal Medicine | DX: Z71.3 Dietary counseling and surveillance (principal); E11.9 Type 2 diabetes mellitus without complications | CPT/HCPCS: 97802 ==

== ENCOUNTER → 2021-02-07 15:18 | Outpatient (CLI) | payer MEDICARE, OTHER, SELFPAY ==
--- NOTE | 2021-02-07 15:23 | MR_ITS ---
PROCEDURE: MR LUMBAR SPINE WO CON CLINICAL INDICATION: SEVERE LOW BACK PAIN, RADIATES TO BUTTOCKS COMPARISON: MR SPLUMBWO MR lumbar spine wo con from 11/12/2017 TECHNIQUE: Standard multiplanar multiecho sequences are performed without contrast. 3-D MIP and myelographic images are also rendered and reviewed FINDINGS: There is normal lumbar lordosis. Vertebral body heights and alignment are maintained. There is Modic type 1 changes noted at the L3-4 and L2-3 levels. Vertebral body heights and alignment are maintained. Bone marrow signal intensity is within normal limits without evidence of marrow infiltrative process. Conus terminates at T12-L1. Paravertebral soft tissues are unremarkable. Further details as described below: T12-L1: No significant canal or foraminal narrowing. L1-2: Bilateral facet joint and ligamentum flavum hypertrophy causes mild to moderate canal narrowing. No significant foraminal narrowing is noted. L2-3: Facet joint and ligamentum flavum hypertrophy causes moderate canal narrowing. There is mild to moderate right foraminal narrowing. L3-4: Bilateral facet joint and ligamentum flavum hypertrophy causes moderate canal narrowing with crowding of the nerve roots within the thecal sac. There is mild to moderate left foraminal narrowing. No significant right foraminal narrowing is noted. L4-5: Bilateral facet joint arthropathy and ligamentum flavum hypertrophy causes moderate canal narrowing. There is moderate to severe left and mild right foraminal narrowing. L5-S1: Central disc bulge, bilateral facet joint and ligamentum flavum hypertrophy causes thecal sac indentation. There is mild canal narrowing. Moderate bilateral foraminal narrowing is noted. IMPRESSION: Multilevel degenerative changes, worse at L4-5 with moderate to severe canal and foraminal narrowing as described above. Dictated by: Kari Warren 02/07/2021 17:19 Kari Warren in [place] 02/07/2021 17:19
== END ==
PROVIDERS: PCP Internal Medicine; Visit Provider Internal Medicine
DX: M54.5 Low back pain (principal)
CPT/HCPCS: 72148; 76376

== ENCOUNTER → 2021-03-03 09:16 | Outpatient (POV) | payer MEDICARE, OTHER, SELFPAY ==
[2021-03-03 09:22] VITALS: BP 129/79; PULSE 76; RESP 18; O2SAT 96; BMI 30.5
--- NOTE | 2021-03-03 11:54 | HMH.PMCON ---
Assessment and Plan (1) Degenerative disc disease, lumbar Status: Chronic Category: Medical Code(s): M51.36 - Other intervertebral disc degeneration, lumbar region (2) Lumbar radiculopathy Status: Chronic Category: Medical Code(s): M54.16 - Radiculopathy, lumbar region (3) Spinal stenosis Status: Chronic Category: Medical Code(s): M48.00 - Spinal stenosis, site unspecified (4) Neurogenic claudication Status: Chronic Category: Medical Code(s): M48.062 - Spinal stenosis, lumbar region with neurogenic claudication - Assessment and plan all Dx Assessment and Plan for all problems:: Patient was reluctant to discuss his symptoms with me today. He did report to be having some low back pain with radiation into lower extremities that was causing him to have heaviness and weakness. We did discuss his MRI results. Given his symptomology and MRI report, he would likely benefit from an epidural steroid injection. We discussed undergoing a lumbar epidural steroid injection with an epidurogram to determine if he is a mild candidate. Patient has requested to see Dr. Aburto before proceeding with injections. We will schedule him to see Dr. Aburto in 1 week to discuss his MRI as we did today and to discuss a further plan of care. Patient has been instructed to contact the clinic with any concerns before the next appointment. Dr. Sarmiento has reviewed this note and agrees with this plan of care. This note was dictated using voice recognition software and make contain errors or omissions. HPI - Data of Consult Patient: new to practice Consult date: 03/03/21 Requesting Physician: Vicki Solomon APRN Primary Care Provider: Michael Tejeda - Consult Narrative Reason for consult: Low back pain, leg heaviness and weakness History of present illness: Mr. Douglas is a 76 year old male presents today for consultation for low back pain with radiation into his bilateral lower extremities. Patient says that he is having heaviness and weakness with his lower extremities to the point that he feels his legs are going to give out . He was referred to us by Dr. Tejeda. Patient has seen us in the past, however, has been more than a year since his last visit. Patient says he did undergo injective therapy in our clinic in the past but is unsure if it gave him any significant relief. He complains of pain with standing and walking. His pain does improve somewhat with sitting. He rates his pain a 6 or 7 out of 10 today. He has tried physical therapy along with continued home stretching program in the past. He did undergo physical therapy in the past for greater than 6 weeks. He also continues with ice and heat therapies. He does have an MRI that does show notable stenosis. He did discuss with his previous provider that he would likely need to undergo surgical intervention for spinal stenosis. Patient is unsure that his pain is stemming from his back, however. He is here today to discuss his symptoms with me, however, the patient has requested to see a physician before proceeding with any type of treatment options. We will discuss his MRI today. CC: Vicki Solomon APRN [facility] History I have reviewed the patient's past medical history: Yes Medical History: Reports:: Cancer (skin), Diabetes Mellitus Type 2, Hyperlipidemia, Hypertension, Myocardial Infarction (09/01/1999) Denies:: Diabetes Mellitus Type 1, MRSA, Seizures *Have you ever received a pneumonia vaccine?: Yes *Have you received a flu vaccine this season?: Yes Other Medical History: Denies: Blood Transfusion Reaction Other Surgeries: Yes: Cardiac Catheterization, Cardiac Surgery, Coronary Stent Amputation: No Fractures: No - *Social History Smoking Status: Former smoker Alcohol Intake: never *Occupational Status:: employed Housing: house Household Members: spouse *Travel in the last 8 weeks: None Family Hx:: Coronary Artery Disease, Diabetes, Heart Attack Review of Sys
== END ==
PROVIDERS: PCP Internal Medicine; Visit Provider Clinical Nurse Specialist Family Health
DX: M51.16 Intervertebral disc disorders with radiculopathy, lumbar region (principal); M48.062 Spinal stenosis, lumbar region with neurogenic claudication
CPT/HCPCS: 99202; G0463

== ENCOUNTER 2021-03-11 16:00 | Outpatient (RCR) | payer MEDICARE, OTHER, SELFPAY ==
--- NOTE | 2021-02-18 14:11 | HMH.PTOPEV ---
PT Outpatient Evaluation Rehab PT Outpatient Evaluation Start: 02/18/21 12:58 Freq: Status: Active Protocol: Document 02/18/21 13:31 LUI (Rec: 02/18/21 14:10 [email or web address] [id number]) Electronically Signed By Diogenes Dixon, PT 02/18/21 13:31 Outpatient Therapy Subjective History Subjective History Patient is a 76 year old male presenting to outpatient PT with reports of chronic low back pain radiating to bilateral buttocks. No reports of NT. Most recent imaging indicates multi-level DDD and disc bulges. Comorbidities include hx of cardiac bypass x 3, HTN, HL, B knee pain (R knee scope) and diabetes. Chief Complaint Pain,Stiff Symptom Type Shooting Symptoms Relieved By Rest/Positioning Symptoms Aggravated By Sitting,Standing,Bending/ Stooping,Physical Activity, Walking,Lifting Prior Functional Limitations None Current Functional Limitations Lifting,Housework,Standing, Sitting,Squatting,Recreation Activity,Walking,Stairs, Bending/Stooping Symptom Description Constant but Variable Level of pain today (0-10) 4 Pain scale - at its best (0-10) 2 Pain scale - at its worst (0-10) 7 Lumbopelvic Eval Posture Thoracic Spine Posture Standing Position Increased Kyphosis Lumbar Spine Posture Standing Position Decreased Lordosis Assistive device Assistive Devices None / NA Palapation tenderness bilateral buttock tenderness Yes: 3/4 Range of Motion Lumbar Spine Active Flexion Range of 80 Motion (degrees) Lumbar Spine Active Extension Range of 10 Motion (degrees) Left Lumbar Spine Lateral Flexion Active 10 Range of Motion (degrees) Right Lumbar Spine Lateral Flexion 10 Active Range of Motion (degrees) Lumbar Spine ROM Limitations Soft Tissue Tightness,Bony Restriction Manual Muscle Test Bilateral Knee Extension Strength Grade 4 Good Knee Flexion Strength Grade 4 Good Hip Flexion Strength Grade 4 Good Hip Abduction Strength Grade 4 Good Hip Adduction Strength Grade 4 Good Extensor Hallucis Longus Strength Grade 4 Good Ankle Dorsiflexion Strength Grade 4 Good Gastronemius/Soleus Strength Grade 4 Good DTR Rt Patellar 2+ Lt Patellar 2+ Rt Gastroc/Soleus
== END 2021-03-11 16:05 | disposition home or self-care (01) ==
LOC: PT 16:00
PROVIDERS: PCP Internal Medicine; Visit Provider Internal Medicine
DX: M54.5 Low back pain (principal); M54.31 Sciatica, right side; M54.32 Sciatica, left side
CPT/HCPCS: 97010; 97014; 97110; 97140; 97163; G0283

== ENCOUNTER → 2021-03-14 09:22 | Outpatient (POV) | payer MEDICARE, OTHER, SELFPAY ==
[2021-03-14 09:42] VITALS: BP 141/73; PULSE 84; RESP 18; TEMP 36.4; O2SAT 97; BMI 30.5
--- NOTE | 2021-04-04 14:58 | HMH.PMCON ---
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 I discussed MRI findings with the patient which can be contributing to his low back and leg pain and bilateral lower extremity weakness. I discussed with him that I believe he may benefit from the mild procedure and gave him a brochure at this visit. We will perform the epidural steroid injection with epidurogram at the next visit and discuss the potential for the mild procedure in greater detail at that time. HPI - Data of Consult Patient: known to practice within the last 3 years Consult date: 03/14/21 Requesting Physician: Hannah Aburto MD Primary Care Provider: Michael Tejeda - Consult Narrative Reason for consult: chronic low back pain History of present illness: Mr. Douglas is a 76 year old male with chronic low back pain radiating into his legs related to degenerative disc disease of the lumbar spine and lumbar radiculopathy. He states that the pain is chronic in nature and he has been experiencing it for years and has gradually worsened over time. He recently underwent an MRI of his lumbar spine and was recently evaluated in our clinic as an initial consultation but requested to go over his imaging with the physician. In regards to his pain he describes it as a heaviness and weakness in his lower extremities and states that feels as if his legs are going to give out. He has previously undergone injection therapy in our clinic in the past but given that his been so long ago he is unsure if he gave him any relief. He he states that the pain is worse with prolonged standing and walking and states that it is better with sitting down or leaning forward with the aid of a shopping cart. H he has previously trialed and failed conservative treatment including oral pain medication and physical therapy for greater than 6 weeks. He recently underwent a lumbar MRI that was performed on February 05, 2021 which demonstrated multi-level degenerative changes. At L1-L4, there is bilateral facet joint and ligamentum flavum hypertrophy causing mild to moderate canal narrowing. At L4-L5 there is also bilateral facet joint arthropathy and ligamentum flavum hypertrophy causing moderate canal narrowing as well as moderate to severe left and mild right foraminal narrowing. At L5-S1 there is a central disc bulge, bilateral facet joint and ligamentum flavum hypertrophy causing thecal sac indentation as well as mild canal narrowing and moderate bilateral foraminal narrowing. CC: Hannah Aburto MD [facility] History Medical History: Reports:: Cancer, Coronary Artery Disease, Diabetes Mellitus Type 2, Hyperlipidemia, Hypertension, Myocardial Infarction Denies:: Diabetes Mellitus Type 1, MRSA, Seizures *Have you ever received a pneumonia vaccine?: Yes *Have you received a flu vaccine this season?: Yes Other Medical History: Denies: Blood Transfusion Reaction Other Surgeries: Yes: Cancer Surgery (skin), Cardiac Catheterization, Cardiac Surgery, Coronary Stent Amputation: No Fractures: No - *Social History Smoking Status: Former smoker Alcohol Intake: never *Occupational Status:: other Housing: house Household Members: spouse *Travel in the last 8 weeks: None Family Hx:: Coronary Wen
== END ==
PROVIDERS: PCP Internal Medicine; Visit Provider Anesthesiology Pain Medicine
DX: S63.502A Unspecified sprain of left wrist, initial encounter (principal); M51.36 Other intervertebral disc degeneration, lumbar region
CPT/HCPCS: 99212; G0463

== ENCOUNTER 2021-03-23 16:57 | Emergency (ER) | payer MEDICARE, OTHER, SELFPAY ==
--- NOTE | 2021-03-23 17:02 | XR_ITS ---
PROCEDURE INFORMATION: Exam: XR Left Wrist Exam date and time: 03/23/2021 5:02 PM Age: 76 years old Clinical indication: Injury or trauma; Blunt trauma (contusions or hematomas); Patient HX: Left wrist pain , fall TECHNIQUE: Imaging protocol: XR Left wrist. Views: 3 or more views. COMPARISON: No relevant prior studies available. FINDINGS: Bones/joints: Degenerative changes in the radiocarpal joint. There is deformity of the scaphoid. There may be chronic unhealed scaphoid fracture.. Degenerative changes in the thumb carpometacarpal joint There is no evidence of acute fracture.There is no evidence of malalignment or dislocation. Soft tissues: Normal. IMPRESSION: Degenerative changes in the radiocarpal joint. There is deformity of the scaphoid. There may be chronic unhealed scaphoid fracture.. There is no evidence of acute fracture.There is no evidence of malalignment or dislocation.
--- NOTE | 2021-03-23 17:02 | XR_ITS ---
PROCEDURE INFORMATION: Exam: XR Left Ribs with PA Chest Exam date and time: 03/23/2021 5:02 PM Age: 76 years old Clinical indication: Injury or trauma; Rib area, left side; Blunt trauma; Prior surgery; Surgery date: 6+ months; Surgery type: Open heart; Patient HX: Fall left sided rib pain TECHNIQUE: Imaging protocol: XR Left ribs with PA chest. Views: 3 views COMPARISON: CR CXR CHEST(2 VIEWS-NOT PORTABLE) 06/16/2016 1:47 AM FINDINGS: Lungs: Unremarkable. No consolidation. Pleural spaces: Unremarkable. No pleural effusion. No pneumothorax. Heart/Mediastinum: Unremarkable. No cardiomegaly. Bones/joints: Median sternotomy; There is no evidence of acute fracture. IMPRESSION: No acute process There is no evidence of acute fracture.
[2021-03-23 17:15] VITALS: BP 137/76; PULSE 85; RESP 21; TEMP 36.6; O2SAT 98; BMI 30.8
--- NOTE | 2021-03-23 18:06 | HMH.EDUTC ---
[facility] [place] Disposition Clinical Impression: Contusion of rib on left side Qualifiers: Encounter type: initial encounter Qualified Code(s): S20.212A - Contusion of left front wall of thorax, initial encounter Wrist sprain Qualifiers: Encounter type: initial encounter Laterality: left Qualified Code(s): S63.502A - Unspecified sprain of left wrist, initial encounter Disposition: Home, Self-Care Condition on Discharge: Good Instructions: Wrist Sprain, DI for Wrist Sprain, DI for Rib Contusion, How To Perform RICE (Rest, Ice, Compress, Elevate) Additional Instructions: Over the counter Lidocaine patches may help with pain in your ribs from falling Make sure that you are taking deep breaths and use a pillow if you are having pain to hold on the area to cough or take deep breath Use wrist splint to help with pain and swelling *RICE, Rest the extremity, Ice 15-20 minutes 3-4 times daily, Compress- wear the rip wrap as discussed as much as possible to help reduce swelling and pain, Elevate the extremity when at rest *Rip wrap/wrist splint is for support and help control swelling, use it except in the shower. Be sure that is not to tight but not to loose either *Elevate when resting *Ibuprofen every 6-8 hours as needed for pain an inflammation if your doctor has said that you can take it. If need something more can take Tylenol in between doses of Ibuprofen to help Immediately follow up with your family doctor for new or worsening of symptoms, or no noticeable improvement over the next 3-5 days Referrals: Michael Tejeda [Primary Care Provider] - As needed Time of Disposition: 18:20 Medical Decision Making - Clyde Inquiry Pt receiving controlled substance: No Clyde was queried for this patient: No Vital Signs: 03/23/21 17:15 03/23/21 18:21 Temperature 97.9 F 97.9 F Temperature Source Oral Pulse Rate 85 Pulse Rate [Right Brachial] 85 Respiratory Rate 21 21 Blood Pressure 137/76 Blood Pressure [Right Arm] 137/76 Blood Pressure Mean [Right Arm] 96 Blood Pressure Source [Right Arm] Automatic Cuff Blood Pressure Position [Right Arm] Sitting 02 Sat by Pulse Oximetry 98 Oxygen Delivery Method Room Air - Radiology Data #1 Image(s): Wrist Image Reviewed: Yes I have reviewed radiologist's interpretation Preliminary Findings: No Fracture Seen There is no evidence of acute fracture.There is no evidence of malalignment or dislocation. #2 Image(s): Chest (with left ribs) Image Reviewed: Yes I have reviewed radiologist's interpretation IMPRESSION: No acute process There is no evidence of acute fracture. [facility] [place] HPI - General Stated complaint: ao 03/22 injured left wrist Time Seen by Provider: 03/23/21 18:06 Mode of Arrival: Ambulatory Source of Information: Patient Limitations: No Limitations Description of Symptoms (Recalled from Triage Doc. by RN): PATIENT REPORTS FALLING WHILE WEED-EATING YESTERDAY AND INJURING WRIST AND RIBS HEENT Symptoms (Recalled from RN notes): No Resp Symptoms (Recalled from RN notes): No Skin Symptoms (Recalled from RN notes): No MS Symptoms (Recalled from RN notes): Yes Functional Status (Recalled from RN notes): WNL - History of Present Illness Provider Complaint: Patient states that he was cutting grass yesterday when he slipped and fell States that he stuck his left hand out to catch his fall an the handle to the weed eater hit him in his left rib area just below his breast State that last night he was having pain in his ribs and wrist but thought it would get better but today was still having pain so he came in to get checked - Related Data Home Medications Medication Instructions Recorded Confirmed Amlodipine Besylate [Norvasc 5mg 5 mg PO DAILY 12/07/17 03/14/21 tablet] Clopidogrel Bisulfate [Plavix] 75 mg PO DAILY 12/07/17 03/14/21 Empagliflozin [Jardiance] 25 mg PO DAILY 12/07/17 03/14/21 Fenofibrate 160 mg PO DAILY 12/07/17 03/14/21 Metformin HCl 1,000 mg PO
[2021-03-23 18:21] VITALS: BP 137/76; PULSE 85; RESP 21; TEMP 36.6; O2SAT 98
== END 2021-03-23 18:45 | disposition home or self-care (01) ==
PROVIDERS: Emergency Provider Nurse Practitioner; PCP Internal Medicine
DX: S20.212A Contusion of left front wall of thorax, initial encounter (principal); S63.502A Unspecified sprain of left wrist, initial encounter; W01.0XXA Fall on same level from slipping, tripping and stumbling without subsequent striking against object, initial encounter; Y92.017 Garden or yard in single-family (private) house as the place of occurrence of the external cause; I25.10 Atherosclerotic heart disease of native coronary artery without angina pectoris; E11.9 Type 2 diabetes mellitus without complications; I25.2 Old myocardial infarction; I10 Essential (primary) hypertension; E78.5 Hyperlipidemia, unspecified; Z87.891 Personal history of nicotine dependence
CPT/HCPCS: 29125; G0463; 71101; 73110; 99202

== ENCOUNTER 2021-04-25 11:11 | Day surgery (SDC) | payer MEDICARE, OTHER, SELFPAY ==
[2021-04-25 11:13] VITALS: BP 134/81; PULSE 79; RESP 18; TEMP 36.4; O2SAT 97; BMI 29.7
[2021-04-25 11:58] VITALS: BP 136/76; PULSE 74; RESP 18
[2021-04-25 12:03] VITALS: BP 133/70; PULSE 73; RESP 18; O2SAT 95
[2021-04-25 12:25] VITALS: BP 128/76; PULSE 71; RESP 18; O2SAT 97
--- NOTE | 2021-04-25 12:36 | HMH.PMPROC ---
- Procedure Date: 04/25/21 Time: 12:36 Anesthesiologist:: Hannah Aburto MD Complications:: None Pre-procedure Diagnosis:: Degenerative disc disease of the lumbar spine, lumbar radiculopathy Post-procedure Diagnosis:: Same Indications for Procedure:: Patient is a very pleasant 76-year-old white male who presents today with chronic low back pain radiating into his legs related to the above diagnosis. He has tried and failed conservative treatment including oral pain medication and home stretching program for greater than 6 weeks. He reports the pain is in his low back and notes pain and heaviness in his legs. States the pain is worse with prolonged standing and prolonged walking and he believes the pain is better with leaning forward. He states that laying down helps more than sitting down with his pain. For today is for the patient to undergo lumbar epidural steroid injection at L4-L5 under fluoroscopy with epidurogram. Procedure Details:: Informed consent was obtained and the risk and benefits of the procedure was explained to the patient. The patient was taken to the procedure room. The patient was placed prone on the procedure table. The patient was prepped and draped in sterile fashion. C-arm fluoroscopy was used to view the lumbar spine. Skin and subcutaneous tissues were anesthetized using lidocaine. I placed an 18-gauge epidural needle and advanced into the L4-L5 interspace using fluoroscopic guidance and [id number] to air and saline. Confirmation of needle placement in the epidural space was performed with contrast dye and epidurogram was performed which demonstrated stenosis at L3-L4 and L4-L5. Next, I injected 1 mL of lidocaine 1.0% with Depo-Medrol 80 mg. Patient tolerated the procedure well with no complications. Plan and Disposition:: We will follow-up with this patient in 2 weeks. Will reevaluate pain symptoms at that time. I discussed epidurogram findings with the patient which demonstrated stenosis at L3-L4 and L4-L5. I discussed with him that should he only receive minimal pain relief or very short-term pain relief with this injection he may potentially benefit from the mild procedure at L3-L4 and L4-L5 bilaterally in the future.
== END 2021-04-25 12:25 | disposition home or self-care (01) ==
LOC: SC.PAINP 11:13
PROVIDERS: PCP Internal Medicine; Visit Provider Anesthesiology Pain Medicine
DX: M51.16 Intervertebral disc disorders with radiculopathy, lumbar region (principal); I25.10 Atherosclerotic heart disease of native coronary artery without angina pectoris; E78.5 Hyperlipidemia, unspecified; I10 Essential (primary) hypertension; E11.9 Type 2 diabetes mellitus without complications
CPT/HCPCS: 62323; J1040; Q9966

== ENCOUNTER → 2021-05-14 11:57 | Outpatient (CLI) | payer MEDICARE, OTHER, SELFPAY ==
--- NOTE | 2021-05-14 12:07 | ECG_ITS ---
APPROVED REPORT Exam: Resting ECG HR:69 bpm ECG Measurements Heart Rate 69 AXES OH 160 P 96 QRSd 76 QRS 12 QT 378 T 39 QTc 405 Conclusion Sinus rhythm with premature atrial complexes with aberrant conduction Low voltage QRS T wave abnormality, consider anterior ischemia Abnormal ECG-No acute changes compared to 12/01/11 Electronically signed by : Michael Tejeda MD 05/14/2021 13:33:27
== END ==
PROVIDERS: PCP Internal Medicine; Visit Provider Internal Medicine
DX: I49.9 Cardiac arrhythmia, unspecified (principal); I10 Essential (primary) hypertension; I25.10 Atherosclerotic heart disease of native coronary artery without angina pectoris
CPT/HCPCS: 93005

== ENCOUNTER → 2021-05-29 13:43 | Outpatient (POV) | payer MEDICARE, OTHER, SELFPAY ==
[2021-05-29 13:49] VITALS: BP 134/80; PULSE 94; RESP 18; O2SAT 97; BMI 30.5
--- NOTE | 2021-05-29 14:10 | HMH.PAINSOAP ---
[facility] Pain Management SOAP Note Subjective:: Patient is a 76-year-old male who presents today for follow-up. The patient was seen in the clinic on 04/25/2021 and did undergo a lumbar epidural steroid injection at L4-L5 with an epidurogram. Patient was giving a decreased dose of corticosteroids with his injection due to his blood glucose levels increasing significantly with injective therapy. Patient reports he got no relief with the injection. In the clinic, the patient has had bilateral SI injections as well as medial branch blocks with Dr. Sarmiento. He reported to have gotten no relief with the SI injections, however, today reports that he got significant relief with the medial branch blocks. Patient's pain is present when he is standing, sitting, and when rising from a sitting position. He is unsure if his pain is worse with leaning forward. He says when he is getting out of a car the pain is severe . He also reports when he is sitting at his desk working his pain is significant to the point he has to stand up and walk. The patient did have an epidurogram with notable stenosis at L3-L4 L4-L5 according to Dr. Aburto's note. Patient says his pain is in his low back area, bilateral hips, with radiation to bilateral knees. His pain is not severe in the lower extremities, however, he does report significant weakness in his lower extremities. Patient is unsure that he wants to proceed with the mild procedure. He did not get relief with the epidural or SI injections. He did get relief with #1 medial branch block/facet joint injection at L4-L5 L5-S1. He would like to repeat these injections at this time. He is on Plavix therapy prescribed by Dr. Tejeda. Review of Systems General: No recent weight changes, no fever, no sleep disturbances Respiratory: No cough, no shortness of air, no recurring pulmonary infections Cardiovascular/peripheral vascular: No chest pain, no palpitations, no edema, no shortness of breath Gastrointestinal: No new onset incontinence, normal bowel movements reported Genitourinary: No new onset incontinence Musculoskeletal: Low back pain worse with raising from a sitting position and with sitting and standing Psychiatric: [Normal mood/affect] Neurological: Heaviness and weakness in bilateral lower extremities Objective:: Physical exam General: Alert and oriented x3, no acute distress, pleasant and cooperative, [on room air] Lungs: Respirations even and unlabored, symmetrical chest expansion Eyes: PERRL Musculoskeletal: Flexion and extension of [] lumbar [spine] somewhat guarded secondary to pain, strength in upper and lower extremities [5/5], [antalgic gait noted] Neurological: Speech clear, [provider enrollment specialist equal], no gross sensory deficit Assessment:: Degenerative disc disease lumbar spine with lumbar radiculopathy symptoms, spinal stenosis with neurogenic claudication symptoms Plan:: Patient I had a very long discussion concerning his options. Dr. Aburto did recommend the patient undergo a mild procedure L3-L4 L4-L5. The patient says that he got significant relief with medial branch block in the past, however, only underwent #2 son 1 injection to this area. He would like to try a repeat injections to see if this gives him significant relief. If he does get relief he would like to proceed with an RFA. If the patient does not get relief with the medial branch block, he would like to discuss proceeding with the mild procedure. He has been educated that the medial branch block/facet joint injections are for diagnostic purposes only. This will be his #2 injection. He is on anticoagulation therapy?Plavix. This is prescribed by Dr. Tejeda. He has been thoroughly educated that he does need to hold his Plavix therapy. He will continue with his home stretching program. He did ask for something oral for pain relief. He says tramadol does not give him relief. I have explained to the patient we will not be able to prescrib
== END ==
PROVIDERS: Visit Provider Clinical Nurse Specialist Family Health
DX: M51.16 Intervertebral disc disorders with radiculopathy, lumbar region (principal); M48.062 Spinal stenosis, lumbar region with neurogenic claudication
CPT/HCPCS: 99212; G0463

== ENCOUNTER 2021-08-08 08:27 | Day surgery (SDC) | payer MEDICARE, OTHER, SELFPAY ==
[2021-08-08 08:36] VITALS: BP 148/77; PULSE 79; RESP 20; TEMP 36.4; O2SAT 98; BMI 30.5
[2021-08-08 09:18] VITALS: BP 149/74; PULSE 77; RESP 18; O2SAT 97
[2021-08-08 09:19] VITALS: PULSE 77; RESP 18; O2SAT 97
[2021-08-08 09:33] VITALS: BP 143/74; PULSE 75; RESP 20; O2SAT 99
--- NOTE | 2021-08-08 09:54 | HMH.PMPROC ---
- Procedure Date: 08/08/21 Time: 09:54 Anesthesiologist:: Adi Sarmiento MD Complications:: None Pre-procedure Diagnosis:: Degenerative disc disease of lumbar spine with lumbar spondylosis and lumbar facet arthropathy Post-procedure Diagnosis:: Same Indications for Procedure:: Patient is a pleasant 76-year-old white male who we are treating for low back pain with lumbar spondylosis and lumbar facet arthropathy. He has done well with previous medial branch blocks and facet joint injections of L4-5 and L5-S1. This was over a year ago. He has been off his Plavix for 7 days. He presents for repeat bilateral lumbar medial branch blocks of L4-5 and L5-S1 today. If successful we will proceed to RF ablation of the same facet joints. Procedure Details:: Lumbar medial branch block Informed consent was obtained and the risks and benefits of the procedure was explained to the patient. The back was prepped using ChloraPrep. The skin and subcutaneous tissues were anesthetized using lidocaine. I placed 22-gauge spinal needles into the facet joint/medial branches of L4-L5 and L5-S1 bilaterally. Needle placement was confirmed with dye. After this we injected 3 mL bupivacaine 0.25% and Depo-Medrol 20 mg into each facet joint/medial branch of L4-L5 and L5-S1 bilaterally. We used a total of 80 mg Depo-Medrol for both levels bilaterally. The patient tolerated the procedure well with no complications. Plan and Disposition:: We will follow-up with him in 2 weeks. Will reevaluate symptoms at that time. We will plan on RF ablation to the same levels if successful.
== END 2021-08-08 09:34 | disposition home or self-care (01) ==
LOC: SC.PAINP 08:28
PROVIDERS: PCP Internal Medicine; Visit Provider Anesthesiology
DX: M47.816 Spondylosis without myelopathy or radiculopathy, lumbar region (principal); M51.36 Other intervertebral disc degeneration, lumbar region; M54.06 Panniculitis affecting regions of neck and back, lumbar region; I25.2 Old myocardial infarction; I25.10 Atherosclerotic heart disease of native coronary artery without angina pectoris; E78.5 Hyperlipidemia, unspecified; I10 Essential (primary) hypertension; G47.33 Obstructive sleep apnea (adult) (pediatric); E11.9 Type 2 diabetes mellitus without complications; M19.90 Unspecified osteoarthritis, unspecified site
CPT/HCPCS: 64493; 64494; J1040; Q9966

== ENCOUNTER → 2021-09-01 10:32 | Outpatient (POV) | payer MEDICARE, OTHER, SELFPAY ==
[2021-09-01 11:33] VITALS: BP 139/74; PULSE 70; RESP 18; O2SAT 98; BMI 29.7
--- NOTE | 2021-09-04 07:56 | HMH.PAINSOAP ---
[facility] Pain Management SOAP Note Subjective:: Patient is a pleasant 76-year-old white male who presents today for follow-up after medial branch block/facet joint injections. Patient says he got significant relief, at about 70 to 80%. He was much more functional following the injections and able to bend forward and extend at waist without pain. The patient's pain has returned. This was his initial medial branch block/facet joint injection. He has tried conservative therapies of physical therapy for more than 6 weeks and continues with home stretching. He has undergone a medial branch block/facet joint injection in the past with a different provider. He got significant relief. Prior to the medial branch blocks, the patient did have a lumbar epidural steroid injection and epidurogram. He was noted to have significant stenosis and Dr. Aburto did recommend the patient undergo a mild procedure, however, the patient reports he got significant relief with the medial branch blocks in the past. Given his success with his initial injection, he would like to proceed with a second injection. He is on Plavix therapy. Review of Systems General: No recent weight changes, no fever, no sleep disturbances Respiratory: No cough, no shortness of air, no recurring pulmonary infections Cardiovascular/peripheral vascular: No chest pain, no palpitations, no edema, no shortness of breath Gastrointestinal: No new onset incontinence, normal bowel movements reported Genitourinary: No new onset incontinence Musculoskeletal: Low back pain made worse with bending forward and extension at waist, made worse with turning from side to side Psychiatric: [Normal mood/affect] Neurological: [Denies weakness in extremities], [denies balance issues] Objective:: Physical exam General: Alert and oriented x3, no acute distress, pleasant and cooperative Lungs: Respirations even and unlabored, symmetrical chest expansion Eyes: PERRL Musculoskeletal: Flexion and extension of lumbar [spine] somewhat guarded secondary to pain, [antalgic gait noted], positive Kemps test Neurological: Speech clear, no gross sensory deficit Assessment:: Degenerative disc disease lumbar spine with lumbar facet arthropathy and lumbar spondylosis Plan:: Patient did well with his initial medial branch block/facet joint injections in our clinic. We will schedule him for second round of injections at L3-L4 L4-L5 bilaterally. He is on Plavix therapy and does understand he will need to hold the therapy once again prior to the injection. This is prescribed by Dr. Tejeda. We will follow up with the patient after his round of injections for further evaluation. Possible side effects of corticosteroids have been discussed with the patient. Risks and benefits of the procedure have been explained to the patient. Patient would like to proceed with the procedure. Patient has been instructed to contact the clinic with any concerns before the next appointment. Dr. Sarmiento has reviewed this note and agrees with this plan of care. This note was dictated using voice recognition software and make contain errors or omissions. [facility] History I have reviewed the patient's past medical history: Yes Medical History: Reports:: Coronary Artery Disease, Diabetes Mellitus Type 2, Hyperlipidemia, Hypertension, Myocardial Infarction Denies:: Cancer, Diabetes Mellitus Type 1, MRSA, Seizures *Have you ever received a pneumonia vaccine?: Yes *Have you received a flu vaccine this season?: No Other Medical History: Reports: Arthritis. Denies: Blood Transfusion Reaction Other Surgeries: Yes: Cancer Surgery (skin), Cardiac Catheterization, Cardiac Surgery, Coronary Stent Amputation: No Fractures: No - *Social History Smoking Status: Former smoker Alcohol Intake: never *Occupational Status:: employed Housing: house Household Members: spouse *Travel in the last 8 weeks: None Family Hx:: Coronary Artery Disease, Diabetes,
== END ==
PROVIDERS: Visit Provider Clinical Nurse Specialist Family Health
DX: M51.36 Other intervertebral disc degeneration, lumbar region (principal); M54.06 Panniculitis affecting regions of neck and back, lumbar region; M47.816 Spondylosis without myelopathy or radiculopathy, lumbar region
CPT/HCPCS: 99212; G0463

== ENCOUNTER → 2021-10-17 09:27 | Outpatient (CLI) | payer MEDICARE, OTHER, SELFPAY | PROVIDERS: Visit Provider Nurse Practitioner | DX: U07.1 COVID-19 (principal) | CPT/HCPCS: C9803; U0003; U0005 ==

== ENCOUNTER → 2021-10-27 18:17 | Outpatient (CLI) | payer MEDICARE, OTHER, SELFPAY ==
[2021-10-27 18:43] LABS: Basophils % 0.3 % (0.1-2.0); Eosinophils # 0.1 K/mm3 (0.0-0.4); Eosinophils % 0.7 % (0.1-12.0); Hematocrit 33.9 % (42.0-52.0); Hemoglobin 10.6 g/dL (14.1-18.0); Lymphocytes # 2.6 K/mm3 (0.7-4.5); Lymphocytes % 23.4 % (10-50); Mean Corpuscular HGB Conc 31.3 g/dL (31.8-35.4); Mean Corpuscular Hemoglobin 26.9 pg (27.0-31.2); Mean Corpuscular Volume 85.9 fl (80-94); Mean Platelet Volume 9.3 fl (7.4-10.4); Monocytes # 0.6 K/mm3 (0.1-1.0); Monocytes % 5.5 % (1.7-9.3); Neutrophils # 7.8 K/mm3 (1.8-7.8); Neutrophils % 70.1 % (37.0-80.0); Platelet Count 447 K/mm3 (142-424); Red Blood Count 3.95 M/mm3 (4.60-6.20); Red Cell Distribution Width 14.8 % (11.5-17.5); White Blood Count 11.1 K/mm3 (4.8-10.8)
[2021-10-27 19:16] LABS: Anion Gap 15.8 mEq/L (5-15); Blood Urea Nitrogen 27 mg/dl (9-20); Calcium 9.7 mg/dl (8.4-10.2); Carbon Dioxide 26 mmol/L (22.0-30.0); Chloride 104 mmol/L (98-107); Estimated Glomerular Filt Rate 39 ml/min (>60); GFR (African American) 48 ML/MIN (>60); Glucose 204 mg/dl (74-100); Potassium 4.8 mmoL/L (3.5-5.1); Sodium 141 mmol/L (136-145)
== END ==
LOC: LAB 18:21 → LAB.DROPOF 18:37
PROVIDERS: PCP Internal Medicine; Visit Provider Internal Medicine
DX: E11.59 Type 2 diabetes mellitus with other circulatory complications (principal); I10 Essential (primary) hypertension; K92.1 Melena; K92.2 Gastrointestinal hemorrhage, unspecified; Z79.84 Long term (current) use of oral hypoglycemic drugs
CPT/HCPCS: 36415; 80048; 85025

== ENCOUNTER → 2021-10-29 10:33 | Outpatient (CLI) | payer MEDICARE, OTHER, SELFPAY | PROVIDERS: PCP Internal Medicine; Visit Provider Surgery | DX: Z01.812 Encounter for preprocedural laboratory examination (principal); U07.1 COVID-19 | CPT/HCPCS: C9803; U0003; U0005 ==

== ENCOUNTER 2021-11-06 06:36 | Day surgery (SDC) | payer MEDICARE, OTHER, SELFPAY ==
[2021-11-06] VITALS (7 sets, daily range): BP systolic 77–130; BP diastolic 41–76; PULSE 80–91; RESP 18–20; TEMP 36.4; O2SAT 96–99
--- NOTE | 2021-11-06 07:58 | HMH.SCOPE ---
- Procedure: Date: 11/06/21 Patient Date of :: 1945 Procedure Performed:: Esophagogastroduodenoscopy with biopsy Total colonoscopy with polypectomy Indications:: Patient is a very pleasant 76-year-old male. He had recently been ill. He was noted to have mild anemia on routine blood work by his family physician with a hemoglobin of 10. Patient does state that he had some symptoms consistent with melena. He was scheduled for colonoscopy. Given the melena plan was made for pain endoscopy with upper endoscopy and colonoscopy. Performing Provider:: Logan Sands MD Referring Provider:: Michael Tejeda MD Sedation:: MAC sedation Procedure:: Patient was taken to endoscopy procedure room. He was positioned in lateral decubitus position. Adequate intravenous sedation was achieved with anesthesia titration of propofol. Attention was first turned to upper endoscopy. Olympus endoscope was inserted via the oropharynx. Esophagus was cannulated. He did have some tortuosity to the esophagus. Gastroesophageal junction was encountered at approximately 39 cm from the incisors. Stomach was cannulated and insufflated. Retroflexion revealed a small hiatal hernia. Overall gastric mucosa appeared unremarkable. Gastric antral mucosal biopsy was obtained for CLOtest for H. pylori. Pylorus was traversed. Duodenal bulb and duodenal sweep are unremarkable. Endoscope was once again withdrawn into the stomach. Gastric antral mucosal biopsy was obtained for histopathologic analysis. Stomach was desufflated and the endoscope was withdrawn. Next attention was turned to colonoscopy. Variable stiffness Olympus colonoscope was inserted via the anus. It was advanced to the cecum. Ileocecal valve and appendiceal orifice were clearly identified. Colonic preparation was good. There was a tiny diminutive polyp within the cecum. This was removed with cold biopsy forceps. Colonoscope was slowly withdrawn through the colon with careful surveillance. He had some degree of pandiverticulosis with quite severe diverticulosis in the sigmoid colon. None of this appeared to be actively inflamed. Within the rectum retroflexion was performed which revealed no evidence of any pathologic internal hemorrhoids. Colonoscope was withdrawn. Findings:: Tiny hiatal hernia Tortuosity of the esophagus Tiny diminutive polyp in the cecum Pandiverticulosis with significant sigmoid diverticulosis Recommendations:: Overall on upper endoscopy and colonoscopy no obvious source which would be obvious etiologic factor for anemia. Complications:: None immediately apparent Estimated blood obtained (mL): 3
--- NOTE | 2021-11-06 08:18 | P.PN_ITS ---
[facility] Anesthesia Checklist - Patient Identification Patient Identification: Arm Band - Structural Data Admitted From: Home Planned Operative Procedure/s: EGD/Colonoscopy Consent for Planned Operative Procedure(s) Verified: Yes Verified Documents: Surgical Consent - Additional verifications Anesthesia Reactions: No Hx Blood Transfusions: No Blood Transfusion Reaction: No - Airway Assessment C-Spine Mobility Assessed: Yes TMJ Mobility Assessed: Yes Dentition: Good Dentition - Neurological Assessment Level of Consciousness: Awake, Alert, Appropriate - Anesthesia Plan Anesthesia Risk discussed: Yes ASA Class: III Anesthesia Type: MAC [facility] History Medical History: Reports:: Coronary Artery Disease, Diabetes Mellitus Type 2, Hyperlipidemia, Hypertension, Myocardial Infarction Denies:: Cancer, Diabetes Mellitus Type 1, Internal Pacemaker, MRSA, Seizures *Have you ever received a pneumonia vaccine?: Yes *Have you received a flu vaccine this season?: No Other Medical History: Reports: Arthritis. Denies: Blood Transfusion Reaction Anesthesia experience/problems:: none Other Surgeries: Yes: Cancer Surgery (skin), Cardiac Catheterization, Cardiac Surgery, Coronary Stent. No: Pacemaker Amputation: No Fractures: No - *Social History Last grade of school completed: High school graduate Smoking Status: Former smoker Alcohol Intake: never Substance Use Type: denies use *Occupational Status:: employed Housing: house Household Members: spouse *Travel in the last 8 weeks: None Family Hx:: Coronary Artery Disease, Diabetes, Heart Attack
[2022-06-25 10:57] LABS: POC Glucose,Bedside 73 (70-110)
== END 2021-11-06 09:29 | disposition home or self-care (01) ==
LOC: OUTP 06:38
PROVIDERS: PCP Internal Medicine; Visit Provider Surgery
PROC: 0DJD8ZZ Inspection of Lower Intestinal Tract, Via Natural or Artificial Opening Endoscopic (ICD-10-PCS; principal; 2021-11-06 07:30)
DX: K63.5 Polyp of colon (principal); K57.30 Diverticulosis of large intestine without perforation or abscess without bleeding; K44.9 Diaphragmatic hernia without obstruction or gangrene; K22.89 Other specified disease of esophagus; I25.10 Atherosclerotic heart disease of native coronary artery without angina pectoris; E11.9 Type 2 diabetes mellitus without complications; I10 Essential (primary) hypertension; I25.2 Old myocardial infarction; M19.90 Unspecified osteoarthritis, unspecified site; Z85.828 Personal history of other malignant neoplasm of skin; Z87.891 Personal history of nicotine dependence; Z83.3 Family history of diabetes mellitus; Z82.3 Family history of stroke
CPT/HCPCS: 43239; 45380; 82962; 87339

== ENCOUNTER → 2022-06-02 21:39 | Outpatient (CLI) | payer MEDICARE, SELFPAY ==
[2022-06-02 22:49] LABS: Basophils % 0.4 % (0.1-2.0); Eosinophils # 0.2 K/mm3 (0.0-0.4); Eosinophils % 2.1 % (0.1-12.0); Hematocrit 38.1 % (42.0-52.0); Lymphocytes % 35.2 % (10-50); Mean Corpuscular HGB Conc 31.4 g/dL (31.8-35.4); Mean Corpuscular Hemoglobin 26.9 pg (27.0-31.2); Mean Corpuscular Volume 85.6 fl (80-94); Mean Platelet Volume 9.3 fl (7.4-10.4); Monocytes # 0.5 K/mm3 (0.1-1.0); Monocytes % 5.8 % (1.7-9.3); Neutrophils # 4.9 K/mm3 (1.8-7.8); Neutrophils % 56.6 % (37.0-80.0); Platelet Count 370 K/mm3 (142-424); Red Blood Count 4.45 M/mm3 (4.60-6.20); Red Cell Distribution Width 15.8 % (11.5-17.5); White Blood Count 8.6 K/mm3 (4.8-10.8)
== END ==
PROVIDERS: PCP Internal Medicine; Visit Provider Internal Medicine
DX: K92.1 Melena (principal); Z86.2 Personal history of diseases of the blood and blood-forming organs and certain disorders involving the immune mechanism
CPT/HCPCS: 85025

== ENCOUNTER 2023-02-02 15:33 | Emergency (ER) | payer MEDICARE, OTHER, SELFPAY ==
[2023-02-02] VITALS (8 sets, daily range): BP systolic 124–172; BP diastolic 70–90; PULSE 70–78; RESP 16–20; TEMP 36.6–36.8; O2SAT 96–98; BMI 28.5
--- NOTE | 2023-02-02 15:40 | ECG_ITS ---
APPROVED REPORT Exam: Resting ECG HR:73 bpm ECG Measurements Heart Rate 73 AXES KS 168 P 47 QRSd 83 QRS 40 QT 367 T 65 QTc 393 Conclusion SINUS RHYTHM NONSPECIFIC T-WAVE ABNORMALITY BORDERLINE ECG UNCONFIRMED REPORT Electronically signed by : Josh James MD 02/02/2023 22:02:30
[2023-02-02 15:45] LABS: POC Glucose,Bedside 154 (70-110)
--- NOTE | 2023-02-02 15:45 | CT_ITS ---
PROCEDURE INFORMATION: Exam: CTA Neck With Contrast Exam date and time: 02/02/2023 3:54 PM Age: 77 years old Clinical indication: Stroke-like symptoms; Speech disturbance; Additional info: Slurred speech, stroke alert TECHNIQUE: Imaging protocol: Computed tomographic angiography of the neck with contrast. 3D rendering (Not supervised by radiologist): MIP and/or 3D reconstructed images were created by the technologist. Radiation optimization: All CT scans at this facility use at least one of these dose optimization techniques: automated exposure control; mA and/or kV adjustment per patient size (includes targeted exams where dose is matched to clinical indication); or iterative reconstruction. Contrast material: ISOVUE; Contrast volume: 100 ml; Contrast route: INTRAVENOUS (IV); REPORTING DATA: Count of CT and Cardiac NM exams in prior 12 months: This patient has received 0 known CTs and 0 known cardiac nuclear medicine studies in the 12 months prior to the current study. COMPARISON: CT HEAD/BRAIN WO CON 02/02/2023 3:52 PM FINDINGS: Right common carotid artery: No stenosis. No dissection or occlusion. Right internal carotid artery: No stenosis of the extracranial segment. No dissection or occlusion. Right external carotid artery: No occlusion or stenosis of the origin. Left common carotid artery: No stenosis. No dissection or occlusion. Left internal carotid artery: No stenosis of the extracranial segment. No dissection or occlusion. Left external carotid artery: No occlusion or stenosis of the origin. Right vertebral artery: No stenosis. No dissection or occlusion. Left vertebral artery: No stenosis. No dissection or occlusion. Soft tissues: Normal. No significant soft tissue swelling. Bones/joints: No acute fracture. IMPRESSION: No stenosis or occlusion. REFERENCES: NASCET CRITERIA. The degree of stenosis in the cervical segment of the internal carotid artery is based on NASCET criteria. Normal is no stenosis. Mild is less than 50% stenosis. Moderate is 50-69% stenosis. Severe is 70% to 99% stenosis. Total occlusion is no detectable patent lumen.
--- NOTE | 2023-02-02 15:45 | CT_ITS ---
PROCEDURE INFORMATION: Exam: CTA Head With Contrast, Arteriography Exam date and time: 02/02/2023 3:54 PM Age: 77 years old Clinical indication: Stroke-like symptoms; Speech disturbance; Additional info: Slurred speech, stroke alert TECHNIQUE: Imaging protocol: Computed tomographic angiography of the head with contrast. Exam focused on the arteries. 3D rendering (Not supervised by radiologist): MIP and/or 3D reconstructed images were created by the technologist. Radiation optimization: All CT scans at this facility use at least one of these dose optimization techniques: automated exposure control; mA and/or kV adjustment per patient size (includes targeted exams where dose is matched to clinical indication); or iterative reconstruction. Contrast material: ISOVUE; Contrast volume: 100 ml; Contrast route: INTRAVENOUS (IV); REPORTING DATA: Count of CT and Cardiac NM exams in prior 12 months: This patient has received 0 known CTs and 0 known cardiac nuclear medicine studies in the 12 months prior to the current study. COMPARISON: CT HEAD/BRAIN WO CON 02/02/2023 3:52 PM FINDINGS: ANTERIOR CIRCULATION: Right internal carotid artery: Intracranial segment is patent with no significant stenosis. No aneurysm. Right middle cerebral artery: No occlusion or significant stenosis. No aneurysm. Right anterior cerebral artery: No occlusion or significant stenosis. No aneurysm. Left internal carotid artery: Intracranial segment is patent with no significant stenosis. No aneurysm. Left middle cerebral artery: No occlusion or significant stenosis. No aneurysm. Left anterior cerebral artery: No occlusion or significant stenosis. No aneurysm. POSTERIOR CIRCULATION: Right vertebral artery: No occlusion or significant stenosis. No aneurysm. Left vertebral artery: No occlusion or significant stenosis. No aneurysm. Basilar artery: No occlusion or significant stenosis. No aneurysm. Right posterior cerebral artery: No occlusion or significant stenosis. No aneurysm. Left posterior cerebral artery: No occlusion or significant stenosis. No aneurysm. Brain: No definite mass, mass effect, or midline shift. Cerebral ventricles: No ventriculomegaly. Bones/joints: Unremarkable. No acute fracture. Soft tissues: Unremarkable. IMPRESSION: No large vessel stenosis or occlusion.
--- NOTE | 2023-02-02 15:45 | CT_ITS ---
FINAL REPORT TECHNIQUE: Axial images through the head was performed by computed tomography. Sagittal and coronal reformatted images were obtained and reviewed. This study was performed with techniques to keep radiation doses as low as reasonably achievable (ALARA). Individualized dose reduction techniques using automated exposure control or adjustment of mA and/or kV according to the patient's size were employed. 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 There is moderate generalized atrophy. There is diminished attenuation in the periventricular white matter consistent with chronic microvascular change. No abnormal density is seen. Ventricles are normal. There is no hemorrhage. No mass effect is seen. Bone windows show no evidence of fracture. IMPRESSION: No hemorrhage or obvious mass. Recommend MR follow-up. Reviewed, Interpreted and Dictated by Alexandra Almaguer MD Transcribed by Danyell North Authenticated and [facility]
--- NOTE | 2023-02-02 15:45 | XR_ITS ---
PROCEDURE INFORMATION: Exam: XR Chest Exam date and time: 02/02/2023 4:15 PM Age: 77 years old Clinical indication: Other: Slurred speech; Additional info: Slurred speech, stroke alert TECHNIQUE: Imaging protocol: Radiologic exam of the chest. Views: 1 view. COMPARISON: CR XR RIBS LT MIN 3V W CXR1V 03/23/2021 5:01 PM FINDINGS: Lungs: No acute cardiopulmonary findings. Pleural spaces: Unremarkable. No pleural effusion. No pneumothorax. Heart/Mediastinum: Unremarkable. No cardiomegaly. Bones/joints: Median sternotomy. Degenerative changes in the right AC joint. IMPRESSION: No acute cardiopulmonary findings.
[2023-02-02 15:57] LABS: Basophils % 0.4 % (0.1-2.0); Eosinophils # 0.1 K/mm3 (0.0-0.4); Eosinophils % 1.6 % (0.1-12.0); Hemoglobin 13.9 g/dL (14.1-18.0); Lymphocytes # 3.7 K/mm3 (0.7-4.5); Mean Corpuscular HGB Conc 32.4 g/dL (31.8-35.4); Mean Corpuscular Hemoglobin 27.1 pg (27.0-31.2); Mean Corpuscular Volume 83.6 fl (80-94); Mean Platelet Volume 8.5 fl (7.4-10.4); Monocytes # 0.5 K/mm3 (0.1-1.0); Monocytes % 5.9 % (1.7-9.3); Neutrophils # 4.6 K/mm3 (1.8-7.8); Neutrophils % 51.2 % (37.0-80.0); Platelet Count 207 K/mm3 (142-424); Red Blood Count 5.14 M/mm3 (4.60-6.20); Red Cell Distribution Width 14.7 % (11.5-17.5); White Blood Count 8.9 K/mm3 (4.8-10.8)
[2023-02-02 15:58] LABS: Chloride 96 mmol/L (98-107); Sodium 139 mmol/L (136-145)
[2023-02-02 15:59] LABS: Potassium 4.2 mmoL/L (3.5-5.1)
[2023-02-02 16:01] LABS: Alanine Aminotransferase 26 U/L (12-78); Albumin Level 4.7 g/dl (3.5-5.0); Albumin/Globulin Ratio 1.7 (1.1-1.8); Alkaline Phosphatase 61 U/L (38-126); Anion Gap 17.2 mEq/L (5-15); Aspartate Amino Transferase 39 U/L (17-59); Bilirubin,Total 0.5 mg/dl (0.2-1.3); Blood Urea Nitrogen 20 mg/dl (9-20); Carbon Dioxide 30 mmol/L (22.0-30.0); Creatinine Clearance Estimated 50 mL/min (50-200); Estimated Glomerular Filt Rate 39 ml/min (>60); GFR (African American) 48 ML/MIN (>60); Globulin 2.8 g/dL (1.3-3.2); Total Protein,Serum 7.5 g/dl (6.3-8.2)
[2023-02-02 16:02] LABS: Calcium 9.6 mg/dl (8.4-10.2); Glucose 168 mg/dl (74-100)
--- NOTE | 2023-02-02 16:09 | PC.NURSE ---
rounded on pt no complaints at this time,call light at bs
[2023-02-02 16:19] LABS: Activated Partial Thrombo Time 22.7 seconds (22.8-30.6); INR 0.99 (0.9-1.1); Prothrombin Time 10.7 seconds (10.1-12.5)
[2023-02-02 16:23] LABS: Troponin I < 0.01 ng/ml (0.00-0.034)
--- NOTE | 2023-02-02 16:43 | PC.NURSE ---
Rajiv collected ua
[2023-02-02 16:44] LABS: Microscopic, Urine URINE MICROSCOPIC (MICROSCOPIC)
[2023-02-02 17:01] LABS: Appearance,Urine CLEAR (Clear); Bilirubin,Urine Negative (Negative); Blood, Urine Negative (Negative); Color,Urine YELLOW (Yellow); Glucose,Urine (UA) 2+ (Negative); Ketones,Urine Negative (Negative); Leukocyte Esterase,Urine Negative (Negative); Nitrate,Urine Negative (Negative); PH,Urine 7.5 (5.0-8.5); Protein,Urine Negative (Negative); Urobilinogen,Urine 0.2 EU/dl (0.2)
--- NOTE | 2023-02-02 17:14 | HMH.EDGENADL ---
Discharge Plan Disposition Patient Disposition: Xfer Short-Term Hosp Condition: Good Prescriptions Prescriptions: No Action clopidogrel [Plavix] 75 MG Tablet 75 mg PO DAILY amlodipine 5 MG Tablet 5 mg PO DAILY metformin 1,000 MG Tablet 1,000 mg PO BID ramipril 10 MG Capsule 10 mg PO DAILY rosuvastatin 20 MG Tablet 20 mg PO DAILY fenofibrate 160 MG Tablet 160 mg PO DAILY empagliflozin [Jardiance] 25 MG Tablet 25 mg PO DAILY glimepiride 4 MG tablet 1 mg PO BID peg 3350-electrolytes 4,000 ML recon soln 240 ml PO Q10M Rx Instructions: until fecal effluent is clear semaglutide 7 MG tablet 7 mg PO DAILY Referrals Follow up/Referrals: Michael Tejeda MD [Primary Care Provider] - See instructions Activity Restrictions/Add. Instructions Additional Instructions/Restrictions: Please proceed to [facility] for further evaluation. Clinical Impressions Clinical Impression: Expressive aphasia, Brain TIA Discharge ED Provider: Tamra Shaw General Adult HPI General Chief complaint: Neuro Symptoms/Deficit Stated complaint: weak, dizzy,words feel Time Seen by Provider: 02/02/23 15:45 Mode of Arrival: Ambulatory Source of Information: Patient Limitations: No Limitations Description of Symptoms (Recalled from ER Triage Doc. by RN): pt to ed c/o dysphagia. 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 pt reports he is fuzzy and still feels confused. pt denies any pain. History of Present Illness HPI narrative: This patient is a 77-year-old male who has a history of CAD on Plavix, hypertension, hyperlipidemia, and type 2 diabetes presenting to the emergency department for evaluation with concern for word finding difficulties. Last known normal was approximately 20 minutes prior to arrival (1520). He was sitting and talking with friends when suddenly he could not make sense of his words. Patient states that he is feeling confused and cannot make sense of his words and he is having trouble formulating sentences. He states that he has a history of TIA in the past. Patient denies any other concerns, such as headache, vision changes, double vision, numbness, tingling unilateral weakness, or other concerns. He states that he was well prior to this and actually was playing [place] ball earlier this morning. Related Data Home Medications Medication Instructions Recorded Confirmed amlodipine 5 mg tablet 5 mg PO DAILY High blood pressure 12/07/17 10/29/21 clopidogrel 75 mg tablet (Plavix) 75 mg PO DAILY Supplement 12/07/17 10/29/21 empagliflozin 25 mg tablet 25 mg PO DAILY Diabetes 12/07/17 10/29/21 (Jardiance) fenofibrate 160 mg tablet 160 mg PO DAILY UNKNOWN 12/07/17 10/29/21 metformin 1,000 mg tablet 1,000 mg PO BID Diabetes 12/07/17 10/29/21 ramipril 10 mg capsule 10 mg PO DAILY blood pressure 12/07/17 10/29/21 rosuvastatin 20 mg tablet 20 mg PO DAILY High cholesterol 12/07/17 10/29/21 semaglutide 7 mg tablet 7 mg PO DAILY Diabetes 04/25/21 10/29/21 glimepiride 4 mg tablet 1 mg PO BID Diabetes 10/29/21 10/29/21 peg 3350-electrolytes 236 240 ml PO Q10M BOWEL PREP 10/29/21 gram-22.74 gram-6.74 gram-5.86 gram solution Allergies Allergy/AdvReac Type Severity Reaction Status Date / Time No Known Allergies Allergy Verified 04/25/21 11:40 [facility] Disclaimer: The information contained in this section may have been updated after the patient was seen, as this information can be updated by other users. Social History Smoking Status: Never smoker alcohol intake: never substance use type: denies use current occupational status: employed Travel in the last 8 weeks: None household members: spouse housing: house current occupational exposures/hazards: No caffeine: Yes ROS Obtained: Yes All systems reviewe
[2023-02-02 17:23] LABS: Squamous Epithelial Cell,Urine Occasional #/hpf (0-5)
--- NOTE | 2023-02-02 17:27 | PC.NURSE ---
checked on pt nothing needed at this time, at bs
--- NOTE | 2023-02-02 19:03 | PC.NURSE ---
[facility]
== END 2023-02-02 19:23 | disposition short-term general hospital (02) ==
PROVIDERS: Emergency Provider Emergency Medicine; PCP Internal Medicine
DX: G45.9 Transient cerebral ischemic attack, unspecified (principal); R53.1 Weakness; R42 Dizziness and giddiness
CPT/HCPCS: 70450; 70496; 70498; 71045; 80053; 81001; 82962; 84484; 85025; 85610; 85730; 93005; 99285; Q9967

== ENCOUNTER → 2023-04-05 07:17 | Outpatient (CLI) | payer MEDICARE, OTHER, SELFPAY ==
--- NOTE | 2023-04-05 07:18 | CT_ITS ---
FINAL REPORT TECHNIQUE: Thin section axial CT images with coronal and sagittal reformats were performed through the neck. This study was performed with techniques to keep radiation doses as low as reasonably achievable (ALARA). Individualized dose reduction techniques using automated exposure control or adjustment of mA and/or kV according to the patient''s size were employed. CLINICAL HISTORY: lipoma on RIGHT SIDE OF NECK, BB MARKER PLACED ON PALPABLE AREA FINDINGS: No adenopathy is present . Salivary glands are normal. Larynx is unremarkable. Thyroid gland is unremarkable. Moderate carotid artery calcifications are present. A marker was placed at the level of a palpable mass in the left posterior soft tissues of the neck. This marker is at the C2 level. There is a 22 x 13 mm fat attenuation mass, compatible with a soft tissue lipoma. IMPRESSION: 22 x 13 mm fat attenuation mass in the left posterior soft tissues of the neck, compatible in appearance with a soft tissue lipoma. Moderate carotid artery calcifications are present. Reviewed, Interpreted and Dictated by Logan Dunn III, MD Transcribed by Rebekah Mccord Authenticated and [facility]
== END ==
PROVIDERS: PCP Internal Medicine; Visit Provider Nurse Practitioner
DX: D17.0 Benign lipomatous neoplasm of skin and subcutaneous tissue of head, face and neck (principal)
CPT/HCPCS: 70490

== ENCOUNTER → 2023-04-27 09:32 | Outpatient (CLI) | payer MEDICARE, OTHER, SELFPAY | PROVIDERS: PCP Internal Medicine; Visit Provider Internal Medicine | DX: Z01.818 Encounter for other preprocedural examination (principal) ==

== ENCOUNTER → 2023-05-03 16:51 | Outpatient (CLI) | payer MEDICARE, OTHER, SELFPAY ==
[2023-05-03 18:12] LABS: Basophils % 0.6 % (0.1-2.0); Eosinophils # 0.2 K/mm3 (0.0-0.4); Eosinophils % 2.6 % (0.1-12.0); Hematocrit 40.2 % (42.0-52.0); Hemoglobin 12.9 g/dL (14.1-18.0); Lymphocytes # 2.7 K/mm3 (0.7-4.5); Lymphocytes % 36.4 % (10-50); Mean Corpuscular Hemoglobin 26.1 pg (27.0-31.2); Mean Corpuscular Volume 81.8 fl (80-94); Mean Platelet Volume 8.9 fl (7.4-10.4); Monocytes # 0.4 K/mm3 (0.1-1.0); Neutrophils % 54.5 % (37.0-80.0); Platelet Count 238 K/mm3 (142-424); Red Blood Count 4.92 M/mm3 (4.60-6.20); Red Cell Distribution Width 15.3 % (11.5-17.5); White Blood Count 7.4 K/mm3 (4.8-10.8)
== END ==
PROVIDERS: PCP Internal Medicine; Visit Provider Internal Medicine
DX: K92.1 Melena (principal)
CPT/HCPCS: 85025

== ENCOUNTER 2023-05-28 09:22 | Day surgery (SDC) | payer MEDICARE, OTHER, SELFPAY ==
[2023-05-26 12:42] VITALS: BMI 30.5
[2023-05-28 09:43] VITALS: BP 139/74; PULSE 78; RESP 18; TEMP 36.6; O2SAT 95
--- NOTE | 2023-05-28 09:54 | P.PNANES_ITS ---
[facility] Disclaimer: The information contained in this section may have been updated after the patient was seen, as this information can be updated by other users. Medical History Cerumen impaction History of Mohs micrographic surgery for skin cancer Lipoma of neck Sleep apnea Surgical History History of cardiac catheterization History of colonoscopy History of esophagogastroduodenoscopy (EGD) History of heart bypass surgery Family History Other No significant family history Social History Smoking Status: Never smoker alcohol intake: never substance use type: denies use current occupational status: employed Travel in the last 8 weeks: None household members: spouse housing: house current occupational exposures/hazards: No caffeine: Yes [facility] Anesthesia Checklist Patient Identification Patient Identification: Arm Band and Verbal (Name & ) Structural Data Admitted From: Home Planned Operative Procedure/s: EGD Consent for Planned Operative Procedure(s) Verified: Yes Verified Documents: Surgical Consent NPO Status Verified Time NPO: 00:00 Additional verifications Fingerstick Blood Glucose: 198 Anesthesia Reactions: No Hx Blood Transfusions: No Blood Transfusion Reaction: No Airway Assessment Mallampati Score:: Class II C-Spine Mobility Assessed: Yes TMJ Mobility Assessed: Yes Dentition: Good Dentition Neurological Assessment Level of Consciousness: Awake and Alert Hx Seizures: No Numbness or tingling in extremities: No Anesthesia Plan Anesthesia Risk discussed: Yes ASA Class: II Anesthesia Type: IV sedation
[2023-05-28 10:01] VITALS: O2SAT 95
--- NOTE | 2023-05-28 10:20 | HMH.SCOPE ---
Procedure: Date: 05/28/23 Patient Date of :: 1945 Procedure Performed:: Esophagogastroduodenoscopy with biopsies Indications:: Patient presents for EGD. He is a 78-year-old male referred by Dr. Tejeda for melena and was seen in the office on 05/11/2023. Recently the patient has had some symptoms requiring multiple medical specialists including carotid and cardiac evaluations and need for Mohs surgery. He states that recently he had very dark black looking stools. He reports findings consistent with mild anemia. He denies abdominal pain or gross rectal bleeding. He did undergo Hemoccult which was positive. Of note, I had performed EGD and colonoscopy on 11/06/2021 at which time he was found to have a tiny hiatal hernia, tortuosity of the esophagus, tiny diminutive polyp in the cecum, significant sigmoid diverticulosis and pandiverticulosis. This was done to evaluate anemia. Recommendations were that there were no overall upper endoscopy or colonoscopy findings which would be a etiology for anemia. Biopsies revealed gastric mucosa with minimal chronic inactive inflammation. He did have a cecal polyp tubular adenoma. After patient was seen in the office he was scheduled for upper endoscopy given the nature of his symptoms. He states that he has not had any melena symptoms for a couple of weeks. Patient does take Plavix. Performing Provider:: Logan Sands MD Referring Provider:: Michael Tejeda MD Sedation:: MAC sedation Procedure:: Patient history was obtained and appropriate physical examination was performed. Patient's medications and allergies were reviewed. Informed consent was obtained after explaining the benefits, alternatives, and risks of the procedure including, but not limited to, bleeding, perforation, missed lesions, and adverse reaction to anesthesia medications. Patient was transported to endoscopy procedure room. Patient was connected to monitoring devices. Throughout the procedure the patient's blood pressure, pulse, and oxygen saturations were monitored continuously. Patient identification and planned procedure were verified by the staff. Patient was positioned in lateral decubitus position. Olympus endoscope was inserted via the oropharynx. Esophagus was cannulated. There were findings suggestive of esophageal dysmotility. Gastroesophageal junction was encountered at approximately 40 cm. Stomach was cannulated and insufflated. Visualization was somewhat limited due to gastric secretions and coating of the schwartz of the stomach likely with medication. Some of this was able to be cleared. Retroflexion revealed extremely tiny hiatal hernia. There was some moderate patchy nonerosive gastritis. Pylorus was traversed. Within the duodenal bulb there were findings of mild nonerosive duodenitis. Distal duodenum appeared unremarkable. Biopsies were obtained within the duodenal bulb at the junction of the second portion of the duodenum. A couple biopsies were obtained within the antrum. Stomach was desufflated and the endoscope was withdrawn. Findings:: Findings consistent with esophageal dysmotility Gastroesophageal junction at 40 cm Patchy moderate nonerosive gastritis/gastropathy Nonerosive duodenitis within the bulb Recommendations:: Patient's melena symptoms have resolved. No active bleeding on EGD. If he develops recurrent melena and anemia could require small bowel evaluation. Findings on upper endoscopy could explain transient melena. Complications:: None immediate Estimated blood obtained (mL): 3 Colonoscopy Component Colonoscopy Component Was a colonoscopy performed during today's procedure?: No
[2023-05-28 10:22] VITALS: BP 107/39; PULSE 83; RESP 16; TEMP 36.4; O2SAT 93
[2023-05-28 10:32] VITALS: BP 98/48; PULSE 82; RESP 16; O2SAT 96
[2023-05-28 10:42] VITALS: BP 118/68; PULSE 78; RESP 16; O2SAT 95
[2023-05-28 10:52] VITALS: BP 119/65; PULSE 79; RESP 16; TEMP 36.6; O2SAT 99
[2023-05-29 09:14] LABS: POC Glucose,Bedside 198 (70-110)
== END 2023-05-28 10:52 | disposition home or self-care (01) ==
PROVIDERS: PCP Internal Medicine; Visit Provider Surgery
PROC: 0DJ08ZZ Inspection of Upper Intestinal Tract, Via Natural or Artificial Opening Endoscopic (ICD-10-PCS; CPT 43235; principal; 2023-05-28 12:00)
DX: K31.A19 Gastric intestinal metaplasia without dysplasia, unspecified site (principal); K31.9 Disease of stomach and duodenum, unspecified; D64.9 Anemia, unspecified; E11.9 Type 2 diabetes mellitus without complications
CPT/HCPCS: 43239; 82962; 88305

== ENCOUNTER → 2023-07-02 08:49 | Outpatient (CLI) | payer MEDICARE, OTHER, SELFPAY ==
--- NOTE | 2023-07-02 08:54 | FL_ITS ---
FINAL REPORT CLINICAL HISTORY: ulcer DAP 7606.83 FT: 2.48 FINDINGS: AIR CONTRAST UPPER GI AND SMALL BOWEL FOLLOW THROUGH HISTORY: Anemia, ulcer. TECHNIQUE: The patient ingested thick and thin barium contrast. Effervescent crystals were also administered. Additional barium was administered for small bowel follow-through. Spot and overhead films were performed. A total of 54 images were saved. FINDINGS: UGI: The esophagus demonstrates no morphologic abnormalities. No mucosal defects are seen. There is very mild esophageal dysmotility. The stomach is of normal size, shape and position. No gastric filling defects are seen. The duodenal bulb and sweep appear unremarkable. No episodes of gastroesophageal reflux observed. 13 mm barium tablet passes easily through the esophagus and into the stomach. SBFT: The gravedigger film demonstrates stool throughout the colon. The transit time to the colon is normal. Contrast reaches the colon at approximately 45 minutes. The mucosal fold pattern is normal. Spot images of the terminal ileum are unremarkable. FLUROSCOPY TIME: 2 minutes 48 seconds Fluoro dose: 7606.83 DAP in uGym2 IMPRESSION: Very mild esophageal dysmotility. Otherwise, unremarkable upper GI and small bowel follow-through. Reviewed, Interpreted and Dictated by Logan Dunn III, MD Transcribed by Lizabeth Salas PA-C Authenticated and [facility]
== END ==
PROVIDERS: PCP Internal Medicine; Visit Provider Surgery
DX: K92.1 Melena (principal)
CPT/HCPCS: 74246; 74248

== ENCOUNTER 2023-10-13 18:08 | Outpatient (CLI) | payer MEDICARE, OTHER, SELFPAY ==
[2023-10-13 17:51] LABS: Coronavirus 19, PCR Not Detected (NotDetected); Influenza A, PCR Not Detected (NotDetected); Influenza B, PCR Not Detected (NotDetected)
== END 2023-10-13 23:59 ==
LOC: LAB.DROPOF 18:10
PROVIDERS: PCP Nurse Practitioner Family; Visit Provider Nurse Practitioner Family
DX: R50.9 Fever, unspecified (principal)
CPT/HCPCS: 87636

== ENCOUNTER 2024-01-31 15:59 | Outpatient (CLI) | payer MEDICARE, OTHER, SELFPAY ==
--- NOTE | 2024-01-31 16:15 | XR_ITS ---
FINAL REPORT CLINICAL HISTORY: COUGH FINDINGS: Two views of the chest were obtained. The heart size and pulmonary vascularity are within normal limits. Postoperative changes are seen from median sternotomy. No acute pulmonary abnormality is identified. There is Mild right lung base opacities are seen consistent with atelectasis or pneumonia. Moderate to severe degenerative changes are seen in the thoracic spine. IMPRESSION: Mild right lung base atelectasis or pneumonia. Authenticated and [facility]
== END 2024-01-31 23:59 | disposition home or self-care (01) ==
LOC: RAD 16:00
PROVIDERS: PCP Internal Medicine; Visit Provider Internal Medicine
DX: R05.9 Cough, unspecified (principal); R53.83 Other fatigue
CPT/HCPCS: 71046

== ENCOUNTER 2024-02-11 10:25 | Outpatient (CLI) | payer MEDICARE, OTHER, SELFPAY ==
--- NOTE | 2024-02-11 | US_ITS ---
FINAL REPORT CLINICAL HISTORY: DM,HTN, HLD, CAD, TIA, Leg heaviness FINDINGS: COMPLETE ANKLE/BRACHIAL INDICES BILATERAL Using the posterior tibial arteries, the TRISTON on the right is 1.1 and the TRISTON on the left is 1.2. Some of the other levels are noncompressible. IMPRESSION: ABIs are within normal limits. Reviewed, Interpreted and Dictated by Logan Dunn III, MD Transcribed by Danyell North Authenticated and [facility]
== END 2024-02-11 23:59 | disposition home or self-care (01) ==
LOC: RT 10:26
PROVIDERS: PCP Internal Medicine; Visit Provider Internal Medicine
DX: M79.604 Pain in right leg (principal); M79.605 Pain in left leg
CPT/HCPCS: 93923

== ENCOUNTER 2024-02-18 12:54 | Outpatient (CLI) | payer MEDICARE, OTHER, SELFPAY ==
[2024-02-18 13:44] LABS: D-Dimer 1.45 ug/mL (0.0-0.5)
== END 2024-02-18 23:59 | disposition home or self-care (01) ==
LOC: LAB 12:55
PROVIDERS: PCP Internal Medicine; Visit Provider Internal Medicine Cardiovascular Disease
DX: R06.09 Other forms of dyspnea (principal)
CPT/HCPCS: 36415; 85378

== ENCOUNTER 2024-02-23 11:12 | Inpatient (IN) | payer MEDICARE, OTHER, SELFPAY ==
[2024-02-23] VITALS (19 sets, daily range): BP systolic 88–129; BP diastolic 44–92; PULSE 62–101; RESP 18–30; TEMP 36.6–37.1; O2SAT 90–98; BMI 39.4; BMI 30.4
--- NOTE | 2024-02-23 11:23 | ECG_ITS ---
APPROVED REPORT Exam: Resting ECG HR:97 bpm ECG Measurements Heart Rate 97 AXES NM 143 P 51 QRSd 80 QRS 39 QT 337 T 71 QTc 391 Conclusion SINUS RHYTHM LOW QRS VOLTAGE IN PRECORDIAL LEADS [QRS DEFLECTION < 1.0 mV IN CHEST LEADS] SEPTAL MYOCARDIAL INFARCTION , OF INDETERMINATE AGE [40+ ms Q WAVE IN V1/V2] No significant changes from prior EKG. Electronically signed by : FREDRICK FARRIS, 02/23/2024 16:10:36
[2024-02-23 12:10] LABS: Coronavirus 19, PCR Not Detected (NotDetected); Influenza A, PCR Not Detected (NotDetected); Influenza B, PCR Not Detected (NotDetected)
--- NOTE | 2024-02-23 12:46 | CT_ITS ---
FINAL REPORT TECHNIQUE: Multiple axial CT sections were performed from the foramen magnum to the vertex. Coronal reformatted images were also obtained. Precontrast and postcontrast injection images were obtained. This study was performed with technique to keep radiation doses as low as reasonably achievable, (ALARA). Individualized dose reduction techniques using automated exposure control or adjustment of mA and/or kV according to the patient size were employed. CLINICAL HISTORY: diabetic, ZUNIGA/nasal congestion x 1 month COMPARISON: 02/02/2023 FINDINGS: There is mild atrophy with proportional ventriculomegaly. There is encephalomalacia in the right occipital lobe well-seen on image 31 of series 3. 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 A physiologic calcification is seen in the basal ganglia. There is no evidence of hemorrhage. No masses are identified. No extra-axial fluid collection is seen. The sinuses are normal. No osseous abnormality is seen on the bone window images. Postcontrast images demonstrate no abnormal enhancement. IMPRESSION: No acute intracranial abnormality. Chronic changes as above. Reviewed, Interpreted and Dictated by Matthew Bonilla MD Transcribed by Liudmila Miles Authenticated and . [facility]
--- NOTE | 2024-02-23 12:46 | CT_ITS ---
FINAL REPORT TECHNIQUE: The patient was injected with IV contrast. Axial images were obtained through the chest in a PE protocol. 3-D reconstruction images were also performed. Individualized dose reduction techniques using automated exposure control or adjustment of the MA and/or KV according to patient's size were employed. CLINICAL HISTORY: cough x 1mo, SOA, night sweats FINDINGS: Multiple median sternotomy wires are present. Mediastinal vasculature is adequately opacified. No pulmonary artery filling defects are identified to suggest PE. There is no aortic dissection. There is no axillary adenopathy. There is small scattered lymph nodes in the mediastinum, some of which are partly calcified. The heart size is normal. There is a minimal right and a small left pleural effusion. Linear densities in both bases are consistent with atelectasis. There is abnormal, confluent soft tissue in the subcarinal region which extends posteriorly to the left hilum. This soft tissue measures approximately 7.7 x 2.8 cm in transverse and AP dimension and is well-seen on image 52 of series 8. This may represent an infiltrative mass. IMPRESSION: No pulmonary embolus or dissection. Abnormal soft tissue in the subcarinal region, posterior to the left hilum, could represent an infiltrative mass or be related to some complication of pancreatitis. Please see abdominal CT report. Reviewed, Interpreted and Dictated by Matthew Bonilla MD Transcribed by Liudmila Miles Authenticated and [facility]
[2024-02-23 12:47] LABS: Basophils # 0.1 K/mm3 (0-0.2); Basophils % 0.9 % (0.1-2.0); Eosinophils # 0.1 K/mm3 (0.0-0.4); Eosinophils % 1.3 % (0.1-12.0); Hematocrit 32.5 % (42.0-52.0); Hemoglobin 10.1 g/dL (14.1-18.0); Lymphocytes # 2.3 K/mm3 (0.7-4.5); Lymphocytes % 31.2 % (10-50); Mean Corpuscular Hemoglobin 23.1 pg (27.0-31.2); Mean Corpuscular Volume 74.6 fl (80-94); Monocytes # 0.5 K/mm3 (0.1-1.0); Monocytes % 6.4 % (1.7-9.3); Neutrophils # 4.5 K/mm3 (1.8-7.8); Neutrophils % 60.1 % (37.0-80.0); Platelet Count 374 K/mm3 (142-424); Red Blood Count 4.36 M/mm3 (4.60-6.20); Red Cell Distribution Width 17.9 % (11.5-17.5); White Blood Count 7.5 K/mm3 (4.8-10.8)
[2024-02-23 12:54] LABS: Alanine Aminotransferase 35 U/L (12-78); Albumin/Globulin Ratio 1.2 (1.1-1.8); Alkaline Phosphatase 61 U/L (38-126); Anion Gap 20.3 mEq/L (5-15); Aspartate Amino Transferase 76 U/L (17-59); Bilirubin,Total 0.4 mg/dl (0.2-1.3); Blood Urea Nitrogen 55 mg/dl (9-20); Calcium 9.4 mg/dl (8.4-10.2); Carbon Dioxide 19 mmol/L (22.0-30.0); Chloride 101 mmol/L (98-107); Creatinine Clearance Estimated 35 mL/min (50-200); Estimated Glomerular Filt Rate 20 ml/min (>60); GFR (African American) 24 ML/MIN (>60); Globulin 2.6 g/dL (1.3-3.2); Glucose 97 mg/dl (74-100); Potassium 4.3 mmoL/L (3.5-5.1); Sodium 136 mmol/L (136-145); Total Protein,Serum 5.6 g/dl (6.3-8.2)
--- NOTE | 2024-02-23 13:02 | CT_ITS ---
FINAL REPORT TECHNIQUE: After the administration of oral and intravenous contrast, axial images were obtained through the abdomen and pelvis by computed tomography. The study was performed with techniques to keep radiation dose as low as reasonably achievable, (ALARA). Individual dose reduction techniques using automated exposure control or adjustment of mA and/or kV according to the patient's size were employed. CLINICAL HISTORY: abdominal pain, night sweats FINDINGS: Abdomen: There is a moderate amount of ascites surrounding the liver and spleen. The liver parenchyma is homogeneous. The gallbladder is present. There is extensive inflammatory reaction throughout the peripancreatic soft tissues consistent with acute pancreatitis. There is abnormal thickening of the wall of the gastric antrum and duodenum. Fluid and inflammation are particularly evident particularly along the anterior pararenal fascia and inferior to the left kidney. The spleen, adrenals and kidneys appear unremarkable. The aorta is normal in caliber. There is no free fluid or adenopathy. Pelvis: The GI tract demonstrates no obstruction. There is extensive descending and sigmoid diverticulosis. The appendix is not identified. The urinary bladder is incompletely distended. There is moderate ascites in the pelvis. IMPRESSION: Moderate ascites. Extensive peripancreatic reaction concerning for acute pancreatitis. Stranding along the left pararenal fascia, extending inferior to the left kidney, may be related to some sequela of hemorrhagic pancreatitis. Reviewed, Interpreted and Dictated by Matthew Bonilla MD Transcribed by Liudmila Miles Authenticated and [facility]
[2024-02-23 13:03] LABS: Lactic Acid 6.4 mmol/L (0.7-2.1)
[2024-02-23 13:06] LABS: Adenovirus,PCR Not Detected (NotDetected); Bordetella Pertussis Not Detected (NotDetected); Chlamydophila Pneumoniae, PCR Not Detected (NotDetected); Coronavirus 19, PCR Not Detected (NotDetected); Coronavirus 229E Not Detected (NotDetected); Coronavirus NL63 Not Detected (NotDetected); Coronavirus OC43 Not Detected (NotDetected); Coronovirus HKU1,PCR Not Detected (NotDetected); Human Metapneumovirus Not Detected (NotDetected); Influenza A, PCR Not Detected (NotDetected); Influenza AH1, 2009 Not Detected (NotDetected); Influenza AH1, PCR Not Detected (NotDetected); Influenza AH3,PCR Not Detected (NotDetected); Influenza B, PCR Not Detected (NotDetected); Mycoplasma Pneumoniae, PCR Not Detected (NotDetected); Parainfluenza 1, PCR Not Detected (NotDetected); Parainfluenza 2, PCR Not Detected (NotDetected); Parainfluenza 3, PCR Not Detected (NotDetected); Parainfluenza 4, PCR Not Detected (NotDetected); Respiratory Syncytial Virus Not Detected (NotDetected); Rhinovirus/Enterovirus Not Detected (NotDetected)
--- NOTE | 2024-02-23 13:17 | PC.NURSE ---
RT notified of [facility]BG
[2024-02-23 13:23] LABS: NT Pro Brain Natriuretic Pep. 1100 pg/mL (0-450)
[2024-02-23 13:31] LABS: T4 (Thyroxine) 6.8 ug/dl (5.53-11.0)
--- NOTE | 2024-02-23 13:31 | [facility].EDGENADL ---
Discharge Plan Disposition Patient Disposition: Admitted Clinical Impressions Clinical Impression: General weakness, Cough, Dyspnea, [place] (acute kidney injury), Acidosis, lactic, Mass of mediastinum, Acute pancreatitis, Abdominal ascites Discharge ED Provider: Waldo Jarquin General Adult HPI <Tamra Shaw, - Last Filed: 02/23/24 15:39> General Chief complaint: Shortness of Breath/Dyspnea Stated complaint: SOA, weakness, low blood pressure Time Seen by Provider: 02/23/24 12:17 Mode of Arrival: Wheelchair Source of Information: Patient Limitations: No Limitations Description of Symptoms (Recalled from ER Triage Doc. by RN): pt to ed c/o increased SOA x1w. pt denies cp. History of Present Illness HPI narrative: This patient is a 79-year-old male with a history of CAD status post CABG, hypertension, diabetes on metformin and semaglutide, hyperlipidemia presenting to the emergency department with complaint that he generally does not feel well. For the last month, he has had a nonspecific cough, sinus pain and congestion, generalized weakness, fatigue, dyspnea on exertion, and has just generally felt unwell. He has been seen by primary care for this and has been prescribed antibiotics twice, including 2 Z-Leo's. This did not help with symptoms. 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 This seemed to start after the patient was traveling and on extended vacation in [place] on a cruise. No fevers, chest pain, vomiting, rashes, swelling. He has had some nonspecific abdominal pain. He also endorses night sweats. Related Data Home Medications Medication Instructions Recorded Confirmed amlodipine 5 mg tablet 5 mg PO DAILY High blood pressure 12/07/17 10/13/23 clopidogrel 75 mg tablet (Plavix) 75 mg PO DAILY Blood Thinner 12/07/17 10/13/23 empagliflozin 25 mg tablet 25 mg PO DAILY Diabetes 12/07/17 10/13/23 (Jardiance) fenofibrate 160 mg tablet 160 mg PO DAILY UNKNOWN 12/07/17 10/13/23 metformin 1,000 mg tablet 1,000 mg PO BID Diabetes 12/07/17 10/13/23 ramipril 10 mg capsule 10 mg PO DAILY blood pressure 12/07/17 10/13/23 rosuvastatin 20 mg tablet 20 mg PO DAILY High cholesterol 12/07/17 10/13/23 glimepiride 4 mg tablet 1 mg PO BID Diabetes 10/29/21 10/13/23 semaglutide 14 mg tablet (Rybelsus) 14 mg PO DAILY Diabetes 04/06/23 10/13/23 famotidine 20 mg tablet 20 mg PO DAILY gerd 05/11/23 10/13/23 metoprolol succinate 25 mg 25 mg PO DAILY bp 05/11/23 10/13/23 tablet,extended release 24 hr Previous Rx's Medication Instructions Recorded famotidine 40 mg tablet (Pepcid) 40 mg PO DAILY #30 tabs 06/10/23 Allergies Allergy/AdvReac Type Severity Reaction Status Date / Time No Known Allergies Allergy Verified 10/13/23 11:29 [facility] <Tamra Shaw DO - Last Filed: 02/23/24 15:39> [facility] Disclaimer: The information contained in this section may have been updated after the patient was seen, as this information can be updated by other users. Medical History History of Mohs micrographic surgery for skin cancer Sleep apnea Melena Cerumen impaction Lipoma of neck Contusion of rib on left side Piriformis syndrome Surgical History History of heart bypass surgery History of cardiac catheterization History of colonoscopy History of esophagogastroduodenoscopy (EGD) Family History Other No significant family history Social History Smoking Status: Never smoker alcohol intake: never substance use type: denies use current occupational status: employed Travel in the last 8 weeks: None household members: spouse housing: house current occupational exposures/hazards: No caffeine: No <Tamra Shaw DO - Last Filed: 02/23/24 15:39> ROS Obtained: Yes All systems reviewed & no additional complaints except as documented Physical Exam <Tamra Shaw DO - Last Filed: 02/23/24 15:39> General General appearance: alert and in no apparent distress Comment: Tired appearing Head Head exam: atraumatic and normocephalic Eye Eye exam: Present normal appearance, PERRL and EOMI ENT ENT exam: Present normal exam, normal oropharynx, mucous membranes moist and normal external ear exam Neck Neck exam: Present normal inspection, full ROM and trachea midline; Absent tenderness Chest Chest inspection: Present normal inspection and symmetric chest wall rise; Absent tenderness Respiratory Respiratory exam: Present normal lung sounds bilaterally; Absent respiratory distress, wheezes, stridor or accessory muscle use Cardiovascular Cardiovascular exam: Present regular rate and normal rhythm Abdominal Exam Abdominal exam: Present soft; Absent distention, tenderness or guarding Extremities Exam Extremities exam: Present normal inspection, full ROM and normal capillary refill; Absent tenderness or edema Back Exam Back exam: Present normal inspection and full ROM; Absent tenderness Neurological Exam Neurological exam: Present alert, oriented X3, CN II-XII intact and normal gait; Absent motor sensory deficit Psychiatric Psychiatric exam: Present normal affect and normal mood Skin Skin exam: Present warm and dry Medical Decision Making <Tamra Shaw, DO - Last Filed: 02/23/24 15:39> Medical Records Medical records reviewed: Yes I reviewed the patient's medical records. [place] Inquiry Pt receiving controlled substance: No Vital Signs: 02/23/24 11:15 02/23/24 11:20 02/23/24 11:25 Temperature 98.7 F Temperature Source Oral Pulse Rate 99 H 98 H Pulse Rate [Left Radial] 94 H Respiratory Rate 20 Blood Pressure 88/58 L 107/62 L Blood Pressure [Right Arm] 108/55 L Blood Pressure Mean [Right Arm] 72 02 Sat by Pulse Oximetry 95 92 L 92 L Oxygen Delivery Method Room Air Room Air Room Air 02/23/24 11:30 02/23/24 12:00 02/23/24 12:30 Temperature Temperature Source Pulse Rate 100 H 94 H 93 H Pulse Rate [Left Radial] Respiratory Rate Blood Pressure 102/59 L 112/55 L 108/55 L Blood Pressure [Right Arm] Blood Pressure Mean [Right Arm] 02 Sat by Pulse Oximetry 91 L 91 L 91 L Oxygen Delivery Method Room Air Room Air 02/23/24 13:00 02/23/24 13:41 02/23/24 14:00 Temperature Temperature Source Pulse Rate 96 H 101 H 62 Pulse Rate [Left Radial] Respiratory Rate Blood Pressure 95/50 L 98/48 L 93/44 L Blood Pressure [Right Arm] Blood Pressure Mean [Right Arm] 02 Sat by Pulse Oximetry 90 L 93 L 93 L Oxygen Delivery Method Room Air Room Air Room Air 02/23/24 14:30 02/23/24 15:00 02/23/24 15:30 Temperature Temperature Source Pulse Rate 88 98 H 91 H Pulse Rate [Left Radial] Respiratory Rate 30 H Blood Pressure 102/46 L 120/71 117/61 Blood Pressure [Right Arm] Blood Pressure Mean [Right Arm] 02 Sat by Pulse Oximetry 93 L 94 L 91 L Oxygen Delivery Method Room Air Room Air 02/23/24 16:30 02/23/24 17:00 02/23/24 17:30 Temperature Temperature Source Pulse Rate 96 H Pulse Rate [Left Radial] Respiratory Rate 24 21 18 Blood Pressure 106/59 L 123/62 126/54 L Blood Pressure [Right Arm] Blood Pressure Mean [Right Arm] 02 Sat by Pulse Oximetry 93 L 94 L 93 L Oxygen Delivery Method Room Air Room Air 02/23/24 18:00 02/23/24 18:30 Temperature Temperature Source Pulse Rate 95 H 94 H Pulse Rate [Left Radial] Respiratory Rate 25 H 24 Blood Pressure 123/64 106/53 L Blood Pressure [Right Arm] Blood Pressure Mean [Right Arm] 02 Sat by Pulse Oximetry 93 L 94 L Oxygen Delivery Method Room Air Room Air Lab Data Lab results reviewed: Yes I reviewed the patient's lab results. Lab Results 02/23/24 11:29: Chlamy pneumoniae PCR Not detected, Adenovirus (PCR) Not detected, B. pertussis DNA (PCR) Not detected, Coronavirus OC43 (PCR) Not detected, Coronavirus HKU1 (PCR) Not detected, Coronavirus 229E (PCR) Not detected, SARS-CoV-2 (PCR) Not detected 02/23/24 11:29: SARS-CoV-2 (PCR) Not detected, Coronavirus NL63 (PCR) Not detected, Human Metapneumovir PCR Not detected, Influenza A (H1) PCR Not detected, Influ A (H1N1/09) PCR Not detected, Influenza A (H3) PCR Not detected, Influenza Type A (PCR) Not detected, Influenza A Untype (PCR) Not detected, Influenza Type B (PCR) Not detected 02/23/24 11:29: Influenza Type B (PCR) Not detected, M. pneumoniae (PCR) Not detected, Parainfluenza 1 (PCR) Not detected, Parainfluenza 2 (PCR) Not detected, Parainfluenza 3 (PCR) Not detected, Parainfluenza 4 (PCR) Not detected, RSV (PCR) Not detected, Entero/Rhino (PCR) Not detected 02/23/24 11:34: WBC 7.5, RBC 4.36 L, Hgb 10.1 L, Hct 32.5 L, MCV 74.6 L, MCH 23.1 L, MCHC 31.0 L, RDW 17.9 H, Plt Count 374, MPV 8.0, Neut % (Auto) 60.1, Lymph % (Auto) 31.2, [place] % (Auto) 6.4, Eos % (Auto) 1.3, Baso % (Auto) 0.9, Neut # (Auto) 4.5, Lymph # (Auto) 2.3, [place] # (Auto) 0.5, Eos # (Auto) 0.1, Baso # (Auto) 0.1, Sodium 136, Potassium 4.3, Chloride 101, Carbon Dioxide 19 L, Anion Gap 20.3 H, BUN 55 H, Creatinine 3.10 H, Estimated Creat Clear 35, Estimated GFR 20 L, Est GFR ( Amer) 24 L, Glucose 97, Lactate 6.4 H, Calcium 9.4, Total Bilirubin 0.4, AST 76 H, ALT 35, Alkaline Phosphatase 61, NT-Pro-B Natriuret Pep 1100 H, Total Protein 5.6 L D, Albumin 3.0 L, Globulin 2.6, Albumin/Globulin Ratio 1.2, TSH 3.33, Thyroxine (T4) 6.8, Acetone Level None detected 02/23/24 12:47: Lipase 491 H 02/23/24 13:05: VBG pH 7.42 H, VBG pCO2 29.2 L, VBG pO2 48.0 H, VBG HCO3 18.5 L, VBG Total CO2 19.4 L, VBG O2 Saturation 85.7 H, VBG Base Excess -5.0 L, VBG Lactic Acid 7.1 H 02/23/24 14:38: Urine Color Yellow, Urine Appearance Clear, Urine pH 5.5, Ur Specific [place] >= 1.030, Urine Protein Trace, Urine Glucose (UA) 1+, Urine Ketones Negative, Urine Blood Negative, Urine Nitrate Negative, Urine Bilirubin 1+ A, Urine Urobilinogen 0.2, Ur Leukocyte Esterase Negative, Urine RBC None, Urine WBC Occasional, Urine Bacteria 1+, Hyaline Casts 5-10 02/23/24 17:27: Lactate 3.7 H 02/23/24 11:34 02/23/24 11:34 Orders (Tests/Meds): ED MEDICATIONS Generic Name Dose Route Start Last Admin Trade Name Colette PRN Reason Stop Dose Admin Acetaminophen 650 mg 02/23/24 18:28 Acetaminophen 325mg Tab PO 03/24/24 18:27 Q4HP PRN Fever or Mild Pain (1-3) Heparin Sodium (Porcine) 5,000 unit 02/23/24 18:30 Heparin Sodium 5,000 Unit/Ml Vial SQ 03/24/24 18:29 Q8H [place] Sodium Chloride 1,000 mls @ 50 mls/hr 02/23/24 18:30 Sod Chlor 0.9% 1000ml Bag IV 03/24/24 18:29 .Q20H [place] Ondansetron HCl 4 mg 02/23/24 18:28 Ondansetron 4mg/2ml Vial IV 03/24/24 18:27 Q8HP PRN Nausea Sodium Chloride 10 ml 02/23/24 18:28 Sodium Chloride 0.9% 10ml Flush Syringe IV 03/24/24 18:27 NEEDED PRN Maintain IV Site Discontinued Medications Generic Name Dose Route Start Last Admin Trade Name Colette PRN Reason Stop Dose Admin Lactated Ringer's 1,000 mls @ 999 mls/hr 02/23/24 13:02 02/23/24 14:04 Lactated Ringer's 1000 Ml Bag IV 02/23/24 14:02 999 mls/hr .Q1H1M ONE Administration Lactated Ringer's 1,000 mls @ 999 mls/hr 02/23/24 16:46 02/23/24 18:07 Lactated Ringer's 1000 Ml Bag IV 02/23/24 17:46 999 mls/hr .Q1H1M ONE Administration Iopamidol 75 ml 02/23/24 14:47 02/23/24 14:53 Iopamidol-300 (61%) 100ml Vial IV 02/23/24 14:48 75 ml ONCE ONE Administration Protocol Iopamidol 60 ml 02/23/24 14:47 02/23/24 14:53 Iopamidol-370 (76%);100ml Bottle IV 02/23/24 14:48 60 ml ONCE ONE Administration Sodium Chloride 10 ml 02/23/24 14:47 02/23/24 14:53 Sodium Chloride 0.9% 10ml Syr (Rad Only) IV 02/23/24 14:48 10 ml ONCE ONE Administration Sodium Chloride 50 ml 02/23/24 14:47 02/23/24 14:52 0.9 % Sodium Chloride 50 Ml Vial IV 02/23/24 14:48 50 ml ONCE ONE Administration ORDERS Category Date Time Status CT abdomen pelvis w con Stat Cat Scan 02/23/24 13:[address] angio chest PE protocol Stat Cat Scan 02/23/24 12:[address] head/brain wo/w con Stat Cat Scan 02/23/24 12:46 Completed Acetone, Serum (Rapid) Stat Lab 02/23/24 11:34 Completed BNP [NT Pro Brain Natriuretic Pep.] Stat Lab 02/23/24 11:34 Completed Complete Blood Count Auto Diff Stat Lab 02/23/24 11:34 Completed Comprehensive Metabolic Panel Stat Lab 02/23/24 11:34 Completed Full Resp Panel w/COVID ([facility]) Routine Lab 02/23/24 11:29 Completed Lactic Acid Follow Up (RFLX 1) Stat Lab 02/23/24 17:27 Completed Lactic Acid Stat Lab 02/23/24 11:34 Completed Lipase Stat Lab 02/23/24 12:47 Completed Rapid PCR Covid and Flu A/B Stat Lab 02/23/24 11:29 Completed T4 (Thyroxine) Stat Lab 02/23/24 11:34 Completed TSH [Thyroid Stimulating Hormone] Stat Lab 02/23/24 11:34 Completed UA [Urinalysis and Microscopic] Stat Lab 02/23/24 14:38 Completed Blood Culture Stat Micro 02/23/24 13:57 Received VBG [Venous Blood Gas] Stat RT 02/23/24 13:05 Completed CA echo doppler complete Stat Y 02/23/24 14:29 Completed Medical Decision Narrative: In summary, this patient is a 79-year-old male presenting to the Emergency Department for evaluation of sinus pain, pressure, congestion, cough, dyspnea on exertion, fatigue, general weakness, nonspecific abdominal pain, and night sweats. Differential diagnoses considered include but are not limited to pneumonia, sinusitis, CHF exacerbation, ACS, dysrhythmia, dehydration, [place]. Ruling out the most morbid conditions drove assessment. It should be noted patient's history includes diabetes for which he is on metformin and semaglutide as well as hypertension, hyperlipidemia, and CAD status post CABG which may or may not be at goal therapy. This complicates all aspects of care by increasing patient's risk for morbidity. I reviewed patient's past medical records and noted previous evaluations by his PCP for similar symptoms over the last month. On exam, the patient is alert and oriented GCS of 15. No focal neurologic deficits. He is lying in bed in no acute distress, but he is very tired appearing. Vitals are reassuring on cardiac telemetry. Workup included CBC, CMP, lactic acid, VBG, TSH, T4, troponin, BNP, CT head with and without contrast and CT chest, abdomen, and pelvis. Labs were obtained that demonstrated significant derangements including significant [place], significant lactic acidosis with mixed respiratory alkalosis, and mildly elevated BNP. Decision was made to go ahead and proceed with CT scans to further evaluate patient's acute illness, as it is unclear what is causing his significant [place] and other lab derangements at this time. He is on metformin, so it could be metformin induced lactic acidosis. Patient was administered 1 L bolus of IV fluids to assess for response. Patient may need more IV fluids but will administer judiciously given his history of cardiac dysfunction echocardiogram was also ordered to evaluate for heart failure as a cause, as the patient could have hypoperfusion in the setting of poor cardiac output. Patient care signed out to the oncoming provider, Dr. Jarquin. Britton: I assumed primary responsibility for this patient after signout from previous physician. Independent interpretation of workup demonstrates significant findings as following: No leukocytosis, hemoglobin 10.1. Chemistry with elevated anion gap 20.3, lactate 6.4, BUN 55/creatinine 3.10 looking to be intrarenal versus prerenal. LFTs largely nonactionable, patient's BNP elevated at 1100. Thyroid studies nonactionable, acetone nonactionable. VBG with metabolic acidosis mixed respiratory alkalosis. pH 7.42, CO2 low at 29, bicarb low at 18, lactic acid 7.1. UA without concern for UTI no ketones. Independent interpretation of imaging demonstrates []. See radiology report for final read. <Waldo Jarquin MD - Last Filed: 02/23/24 19:13> Vital Signs: 02/23/24 11:15 02/23/24 11:20 02/23/24 11:25 Temperature 98.7 F Temperature Source Oral Pulse Rate 99 H 98 H Pulse Rate [Left Radial] 94 H Respiratory Rate 20 Blood Pressure 88/58 L 107/62 L Blood Pressure [Right Arm] 108/55 L Blood Pressure Mean [Right Arm] 72 02 Sat by Pulse Oximetry 95 92 L 92 L Oxygen Delivery Method Room Air Room Air Room Air 02/23/24 11:30 02/23/24 12:00 02/23/24 12:30 Temperature Temperature Source Pulse Rate 100 H 94 H 93 H Pulse Rate [Left Radial] Respiratory Rate Blood Pressure 102/59 L 112/55 L 108/55 L Blood Pressure [Right Arm] Blood Pressure Mean [Right Arm] 02 Sat by Pulse Oximetry 91 L 91 L 91 L Oxygen Delivery Method Room Air Room Air 02/23/24 13:00 02/23/24 13:41 02/23/24 14:00 Temperature Temperature Source Pulse Rate 96 H 101 H 62 Pulse Rate [Left Radial] Respiratory Rate Blood Pressure 95/50 L 98/48 L 93/44 L Blood Pressure [Right Arm] Blood Pressure Mean [Right Arm] 02 Sat by Pulse Oximetry 90 L 93 L 93 L Oxygen Delivery Method Room Air Room Air Room Air 02/23/24 14:30 02/23/24 15:00 02/23/24 15:30 Temperature Temperature Source Pulse Rate 88 98 H 91 H Pulse Rate [Left Radial] Respiratory Rate 30 H Blood Pressure 102/46 L 120/71 117/61 Blood Pressure [Right Arm] Blood Pressure Mean [Right Arm] 02 Sat by Pulse Oximetry 93 L 94 L 91 L Oxygen Delivery Method Room Air Room Air 02/23/24 16:30 02/23/24 17:00 02/23/24 17:30 Temperature Temperature Source Pulse Rate 96 H Pulse Rate [Left Radial] Respiratory Rate 24 21 18 Blood Pressure 106/59 L 123/62 126/54 L Blood Pressure [Right Arm] Blood Pressure Mean [Right Arm] 02 Sat by Pulse Oximetry 93 L 94 L 93 L Oxygen Delivery Method Room Air Room Air 02/23/24 18:00 02/23/24 18:30 Temperature Temperature Source Pulse Rate 95 H 94 H Pulse Rate [Left Radial] Respiratory Rate 25 H 24 Blood Pressure 123/64 106/53 L Blood Pressure [Right Arm] Blood Pressure Mean [Right Arm] 02 Sat by Pulse Oximetry 93 L 94 L Oxygen Delivery Method Room Air Room Air Lab Data Lab Results 02/23/24 11:29: Chlamy pneumoniae PCR Not detected, Adenovirus (PCR) Not detected, B. pertussis DNA (PCR) Not detected, Coronavirus OC43 (PCR) Not detected, Coronavirus HKU1 (PCR) Not detected, Coronavirus 229E (PCR) Not detected, SARS-CoV-2 (PCR) Not detected 02/23/24 11:29: SARS-CoV-2 (PCR) Not detected, Coronavirus NL63 (PCR) Not detected, Human Metapneumovir PCR Not detected, Influenza A (H1) PCR Not detected, Influ A (H1N1/09) PCR Not detected, Influenza A (H3) PCR Not detected, Influenza Type A (PCR) Not detected, Influenza A Untype (PCR) Not detected, Influenza Type B (PCR) Not detected 02/23/24 11:29: Influenza Type B (PCR) Not detected, M. pneumoniae (PCR) Not detected, Parainfluenza 1 (PCR) Not detected, Parainfluenza 2 (PCR) Not detected, Parainfluenza 3 (PCR) Not detected, Parainfluenza 4 (PCR) Not detected, RSV (PCR) Not detected, Entero/Rhino (PCR) Not detected 02/23/24 11:34: WBC 7.5, RBC 4.36 L, Hgb 10.1 L, Hct 32.5 L, MCV 74.6 L, MCH 23.1 L, MCHC 31.0 L, RDW 17.9 H, Plt Count 374, MPV 8.0, Neut % (Auto) 60.1, Lymph % (Auto) 31.2, [place] % (Auto) 6.4, Eos % (Auto) 1.3, Baso % (Auto) 0.9, Neut # (Auto) 4.5, Lymph # (Auto) 2.3, [place] # (Auto) 0.5, Eos # (Auto) 0.1, Baso # (Auto) 0.1, Sodium 136, Potassium 4.3, Chloride 101, Carbon Dioxide 19 L, Anion Gap 20.3 H, BUN 55 H, Creatinine 3.10 H, Estimated Creat Clear 35, Estimated GFR 20 L, Est GFR ( Amer) 24 L, Glucose 97, Lactate 6.4 H, Calcium 9.4, Total Bilirubin 0.4, AST 76 H, ALT 35, Alkaline Phosphatase 61, NT-Pro-B Natriuret Pep 1100 H, Total Protein 5.6 L D, Albumin 3.0 L, Globulin 2.6, Albumin/Globulin Ratio 1.2, TSH 3.33, Thyroxine (T4) 6.8, Acetone Level None detected 02/23/24 12:47: Lipase 491 H 02/23/24 13:05: VBG pH 7.42 H, VBG pCO2 29.2 L, VBG pO2 48.0 H, VBG HCO3 18.5 L, VBG Total CO2 19.4 L, VBG O2 Saturation 85.7 H, VBG Base Excess -5.0 L, VBG Lactic Acid 7.1 H 02/23/24 14:38: Urine Color Yellow, Urine Appearance Clear, Urine pH 5.5, Ur Specific [place] >= 1.030, Urine Protein Trace, Urine Glucose (UA) 1+, Urine Ketones Negative, Urine Blood Negative, Urine Nitrate Negative, Urine Bilirubin 1+ A, Urine Urobilinogen 0.2, Ur Leukocyte Esterase Negative, Urine RBC None, Urine WBC Occasional, Urine Bacteria 1+, Hyaline Casts 5-10 02/23/24 17:27: Lactate 3.7 H Orders (Tests/Meds): ED MEDICATIONS Generic Name Dose Route Start Last Admin Trade Name Freq PRN Reason Stop Dose Admin Acetaminophen 650 mg 02/23/24 18:28 Acetaminophen 325mg Tab PO 03/24/24 18:27 Q4HP PRN Fever or Mild Pain (1-3) Heparin Sodium (Porcine) 5,000 unit 02/23/24 18:30 Heparin Sodium 5,000 Unit/Ml Vial SQ 03/24/24 18:29 Q8H [place] Sodium Chloride 1,000 mls @ 50 mls/hr 02/23/24 18:30 Sod Chlor 0.9% 1000ml Bag IV 03/24/24 18:29 .Q20H [place] Ondansetron HCl 4 mg 02/23/24 18:28 Ondansetron 4mg/2ml Vial IV 03/24/24 18:27 Q8HP PRN Nausea Sodium Chloride 10 ml 05/29/24 18:28 Sodium Chloride 0.9% 10ml Flush Syringe IV 03/24/24 18:27 NEEDED PRN Maintain IV Site Discontinued Medications Generic Name Dose Route Start Last Admin Trade Name Freq PRN Reason Stop Dose Admin Lactated Ringer's 1,000 mls @ 999 mls/hr 02/23/24 13:02 02/23/24 14:04 Lactated Ringer's 1000 Ml Bag IV 02/23/24 14:02 999 mls/hr .Q1H1M ONE Administration Lactated Ringer's 1,000 mls @ 999 mls/hr 02/23/24 16:46 02/23/24 18:07 Lactated Ringer's 1000 Ml Bag IV 02/23/24 17:46 999 mls/hr .Q1H1M ONE Administration Iopamidol 75 ml 02/23/24 14:47 02/23/24 14:53 Iopamidol-300 (61%) 100ml Vial IV 02/23/24 14:48 75 ml ONCE ONE Administration Protocol Iopamidol 60 ml 02/23/24 14:47 02/23/24 14:53 Iopamidol-370 (76%);100ml Bottle IV 02/23/24 14:48 60 ml ONCE ONE Administration Sodium Chloride 10 ml 02/23/24 14:47 02/23/24 14:53 Sodium Chloride 0.9% 10ml Syr (Rad Only) IV 02/23/24 14:48 10 ml ONCE ONE Administration Sodium Chloride 50 ml 02/23/24 14:47 02/23/24 14:52 0.9 % Sodium Chloride 50 Ml Vial IV 02/23/24 14:48 50 ml ONCE ONE Administration ORDERS Category Date Time Status CT abdomen pelvis w con Stat Cat Scan 02/23/24 13:[address] angio chest PE protocol Stat Cat Scan 02/23/24 12:[address] head/brain wo/w con Stat Cat Scan 02/23/24 12:46 Completed Acetone, Serum (Rapid) Stat Lab 02/23/24 11:34 Completed BNP [NT Pro Brain Natriuretic Pep.] Stat Lab 02/23/24 11:34 Completed Complete Blood Count Auto Diff Stat Lab 02/23/24 11:34 Completed Comprehensive Metabolic Panel Stat Lab 02/23/24 11:34 Completed Full Resp Panel w/COVID ([facility]) Routine Lab 02/23/24 11:29 Completed Lactic Acid Follow Up (RFLX 1) Stat Lab 02/23/24 17:27 Completed Lactic Acid Stat Lab 02/23/24 11:34 Completed Lipase Stat Lab 02/23/24 12:47 Completed Rapid PCR Covid and Flu A/B Stat Lab 02/23/24 11:29 Completed T4 (Thyroxine) Stat Lab 02/23/24 11:34 Completed TSH [Thyroid Stimulating Hormone] Stat Lab 02/23/24 11:34 Completed UA [Urinalysis and Microscopic] Stat Lab 02/23/24 14:38 Completed Blood Culture Stat Micro 02/23/24 13:57 Received VBG [Venous Blood Gas] Stat RT 02/23/24 13:05 Completed CA echo doppler complete Stat Y 02/23/24 14:29 Completed Medical Decision Narrative: In summary, this patient is a 79-year-old male presenting to the Emergency Department for evaluation of sinus pain, pressure, congestion, cough, dyspnea on exertion, fatigue, general weakness, nonspecific abdominal pain, and night sweats. Differential diagnoses considered include but are not limited to pneumonia, sinusitis, CHF exacerbation, ACS, dysrhythmia, dehydration, [place]. Ruling out the most morbid conditions drove assessment. It should be noted patient's history includes diabetes for which he is on metformin and semaglutide as well as hypertension, hyperlipidemia, and CAD status post CABG which may or may not be at goal therapy. This complicates all aspects of care by increasing patient's risk for morbidity. I reviewed patient's past medical records and noted previous evaluations by his PCP for similar symptoms over the last month. On exam, the patient is alert and oriented GCS of 15. No focal neurologic deficits. He is lying in bed in no acute distress, but he is very tired appearing. Vitals are reassuring on cardiac telemetry. Workup included CBC, CMP, lactic acid, VBG, TSH, T4, troponin, BNP, CT head with and without contrast and CT chest, abdomen, and pelvis. Labs were obtained that demonstrated significant derangements including significant [place], significant lactic acidosis with mixed respiratory alkalosis, and mildly elevated BNP. Decision was made to go ahead and proceed with CT scans to further evaluate patient's acute illness, as it is unclear what is causing his significant [place] and other lab derangements at this time. He is on metformin, so it could be metformin induced lactic acidosis. Patient was administered 1 L bolus of IV fluids to assess for response. Patient may need more IV fluids but will administer judiciously given his history of cardiac dysfunction echocardiogram was also ordered to evaluate for heart failure as a cause, as the patient could have hypoperfusion in the setting of poor cardiac output. Patient care signed out to the oncoming provider, Dr. Jarquin. Britton: I assumed primary responsibility for this patient after signout from previous physician. Independent interpretation of workup demonstrates significant findings as following: No leukocytosis, hemoglobin 10.1. Chemistry with elevated anion gap 20.3, lactate 6.4, BUN 55/creatinine 3.10 looking to be intrarenal versus prerenal. LFTs largely nonactionable, patient's BNP elevated at 1100. Thyroid studies nonactionable, acetone nonactionable. VBG with metabolic acidosis mixed respiratory alkalosis. pH 7.42, CO2 low at 29, bicarb low at 18, lactic acid 7.1. UA without concern for UTI no ketones. Independent interpretation of imaging demonstrates CT head with chronic, stable findings. CTA of the chest without acute aortic dissection, but patient does have moderate left-sided pleural effusion. No evidence of right heart strain or pericardial effusion. CTA chest with left-sided pleural effusion and patient does have mass in the subcarinal region on the left 7.7 x 2.8 cm with associated mediastinal lymphadenopathy. There is most concerning for malignancy in my opinion. On CT of the abdomen and pelvis, patient has ascites and radiographic sequela of acute pancreatitis with fat stranding all the way into the left flank. Ascites may be inflammatory for pancreatitis, or due to congestive hepatopathy, which is related to findings on echo. Echocardiogram with hyperdynamic heart, no pericardial effusion, but he does have left-sided pleural effusion and elevated right heart pressures around 60 mmHg. See radiology report for final reads. Lipase was sent, this demonstrated elevation greater than 400. Pulmonology was consulted and case was discussed at length, agreeable to endoscopic bronchial ultrasound and biopsy when inpatient, if needed. Hospital medicine was contacted and case was discussed at length, patient to be admitted for what appears to be ascites related to elevated right heart pressures, mediastinal mass, metformin induced lactic acidosis and [place]. Because patient high risk for clinical decompensation, deemed appropriate for inpatient admission. Results were relayed to patient who voiced understanding and patient was agreeable to inpatient admission and management. Patient was admitted to the hospital for further definitive management. Critical Care <Tamra Shaw DO - Last Filed: 02/23/24 15:39> Critical Care Time Critical Care Time: No <Waldo Jarquin MD - Last Filed: 02/23/24 19:13> Critical Care Time Critical Care Time: Yes (renal, metabolic) Attestation: On 02/23/24, the high probability of a clinically significant, sudden or life threatening deterioration of the following system(s) required my full and direct attention, intervention and personal management. The time I documented below is in addition to time spent performing reported procedures but includes the following listed in this critical care notation. Total Time Total Critical Care Time: 35
[2024-02-23 13:44] LABS: Thyroid Stimulating Hormone 3.33 uIU/mL (0.465-4.68)
[2024-02-23 13:48] LABS: VBG HCO3 18.5 mmol/L (23-30); VBG PCO2 29.2 mmol/L (35-51); VBG PH 7.42 mmol/L (7.31-7.41); VBG Total CO2 19.4 mmol/L (23-27)
[2024-02-23 13:49] LABS: VBG Oxygen Saturation 85.7 % (50-70)
[2024-02-23 13:52] LABS: Lactate Venous 7.1 mmol/L (0.4-2.0)
[2024-02-23 13:58] LABS: Acetone, Serum (Rapid) None Detected (None Detect)
[2024-02-23] MEDS: LACTATED RINGERS 1000ML 1,000 ML 999 ML IV ×2 (14:04→18:07)
--- NOTE | 2024-02-23 14:29 | CA_ITS ---
APPROVED REPORT EXAM: Comprehensive 2D, Doppler, and color-flow Echocardiogram Contact Lens Molder: Dianne Hernandez, RCS, RVS Ht: 5 ft 7 in Wt: 200lbs BSA: 2.02 BP: 102/62 mmHg Indications: CAD h/o-OHS, SOA, Weakness, Hypotension, s/p travel, Echo Enhancing Agent Comments: Left Pleural effusion 2D Dimensions IVSd 0.64 cm LVEF (Visual) 78.60 % PWd 1.02 cm EF AP4 68.60 % LVDd 5.40 cm GL Strain -23.3 % LVDs 2.83 cm Left Atrium 3.33 cm M-Mode Dimensions RVDd 1.93 cm (0.9-2.6) LA Diam 4.96 cm (1.9-4.0) LVDd 6.22 cm (3.5-5.7) LVDs 4.74 cm (3.5-5.7) IVSd 0.76 cm (0.6-1.1) PWd 0.91 cm (0.6-1.1) EF (Teich) 46.60% EPSs 0.45 cm FS 23.80% EDV (Teich) 195.40 mL TAPSE 1.53 (<1.7) ESV (Teich) 104.40 mL LV Diastology E Decel Time 150 (160-240 msec) E/A Ratio 0.96 MED A' 11.50 cm/s LAT A' 13.50 cm/s Aortic Valve SIMEON Index 1.44 cm2/m2 AoV Peak Krystian. 167.0 (50-130 cm/s) AO Peak GR. 11.20 mmHg AO Mean GR. 5.60 (<5 mmHg) AO VTI 27.3 (18-25 cm) SIMEON (VTI) 2.98 (2.5-4.5 cm2) Mitral Valve MV A Velocity 96.0 (40-130 cm/s) E/A Ratio 0.96 Pulmonary Valve PV Peak Velocity 97.0 (50-150 cm/s) Tricuspid Valve TR P. Velocity 352.00 cm/s RAP Estimate 10.00 mmHg RVSP 59.60 mmHg Left Ventricle The left ventricle is normal size. The left ventricular systolic function is normal. The left ventricular ejection fraction is within the normal range. There is normal left ventricular wall thickness. There is normal LV segmental wall motion. The left ventricular diastolic function is normal. LVEF is 60%. Right Ventricle The right ventricle is mildly dilated. Right ventricle is mildly hypokinetic. Atria The left atrium size is normal. The right atrium size is normal. There is no Doppler evidence of interatrial shunt. Aortic Valve The aortic valve is mildly thickened. There is no aortic valvular stenosis. Mild aortic regurgitation. Mitral Valve The mitral valve leaflets are mildly thickened. No evidence of mitral valve stenosis. Mild mitral regurgitation. Tricuspid Valve The tricuspid valve leaflets are thin and pliable. Trace tricuspid regurgitation. There is insufficient TR jet to estimate RVSP. Pulmonic Valve The pulmonary valve is grossly normal in structure. Trace pulmonic regurgitation. Great Vessels The aortic root is normal in size. The ascending aorta is not well-visualized. Pericardium There is no pericardial effusion. Loculated pleural effusion is present. Other Information Study Quality: Fair Conclusion Normal LV systolic function. Mildly dilated RV with mild reduction in RV function. Mild AI, mild MR. Loculated pleural effusion is present. Further pulmonary evaluation is recommended. Electronically signed by : Monica Riley MD 03/01/2024 11:56:34
[2024-02-23 14:42] LABS: Microscopic, Urine URINE MICROSCOPIC (MICROSCOPIC)
[2024-02-23 14:43] LABS: Appearance,Urine CLEAR (Clear); Blood, Urine Negative (Negative); Color,Urine YELLOW (Yellow); Glucose,Urine (UA) 1+ (Negative); Ketones,Urine Negative (Negative); Leukocyte Esterase,Urine Negative (Negative); Nitrate,Urine Negative (Negative); PH,Urine 5.5 (5.0-8.5); Protein,Urine TRACE (Negative); Specific Gravity, Urine >= 1.030 (1.005-1.030); Urobilinogen,Urine 0.2 EU/dl (0.2)
[2024-02-23] MEDS: 0.9 % SODIUM CHLORIDE 50 ML VIAL IV (14:52)
[2024-02-23] MEDS: SODIUM CHLORIDE 0.9% 10ML SYR (RAD ONLY) 10 ML IV (14:53)
[2024-02-23] MEDS: IOPAMIDOL-370 (76%);100ML BOTTLE 60 ML IV (14:53)
[2024-02-23] MEDS: IOPAMIDOL-300 (61%) 100ML VIAL 75 ML IV (14:53)
--- NOTE | 2024-02-23 14:53 | HMH.ITSTN ---
GFR results were overrode for the use of contrast media by the Physician, Dr. Shaw, on a risk vs. benefit situation with this patient.
[2024-02-23 14:56] LABS: Bilirubin,Urine 1+ (Negative)
[2024-02-23 15:26] LABS: Bacteria,Urine 1+ /lpf; WBC,Urine Occasional #/hpf (0-3)
[2024-02-23 16:45] LABS: Reflex Lactic Add Lactic Reflex
--- NOTE | 2024-02-23 17:01 | PC.NURSE ---
Dr. Jarquin at BS to update pt/family on POC
[2024-02-23 17:49] LABS: Lactic Acid Follow Up (RFLX 1) 3.7 mmol/L (0.7-2.1)
[2024-02-23 17:54] LABS: Lipase 491 U/L (23-300)
--- NOTE | 2024-02-23 18:07 | PC.NURSE ---
assisted pt to bathroom and back, pt tolerated well, ice chips given after okay from , pt updated on poc
--- NOTE | 2024-02-23 19:24 | PC.NURSE ---
report called to zina ramírez on 2nd floor at this time
[2024-02-23 19:32] LABS: Reflex Lactic (2 hrs) Add Lactic Reflex
--- NOTE | 2024-02-23 19:48 | PC.NURSE ---
patient arrived to floor via wheelchair @19:47
--- NOTE | 2024-02-23 19:52 | P.HP_ITS ---
History of Present Illness *Admission Date: 02/23/24 *History of present illness: This is a 79-year-old male with a history of CAD status post CABG, hypertension, diabetes on multiples orals medications reported, hyperlipidemia presented to the emergency department with complaint of generalized malaise that has been progressively increasing symptoms for at least the last month. Symptoms included a nonspecific cough, sinus pain and congestion, generalized weakness, fatigue, dyspnea on exertion, and abdominal discomfort. He has been seen by primary care for this and has been prescribed antibiotics twice, including 2 Z- Leo's. This did not help with symptoms. 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 No fevers, chest pain, vomiting, rashes, swelling. He has had some nonspecific abdominal pain. He also endorses night sweats, likely related to hypoglycemias. Admitted for further work up and treatment. [facility] Disclaimer: The information contained in this section may have been updated after the patient was seen, as this information can be updated by other users. Medical History History of Mohs micrographic surgery for skin cancer Sleep apnea Melena Cerumen impaction Lipoma of neck Contusion of rib on left side Piriformis syndrome Surgical History History of heart bypass surgery History of cardiac catheterization History of colonoscopy History of esophagogastroduodenoscopy (EGD) Family History Other No significant family history Social History Smoking Status: Never smoker alcohol intake: never substance use type: denies use current occupational status: employed Travel in the last 8 weeks: None household members: spouse housing: house current occupational exposures/hazards: No caffeine: No Review of Systems Review of Systems Review of systems:: pertinent systems reviewed and negative unless documented below Meds Home Medications and Allergies Home Medications Medication Instructions Recorded Confirmed Type amlodipine 5 mg tablet 5 mg PO DAILY High blood pressure 12/07/17 02/23/24 His tory clopidogrel 75 mg tablet (Plavix) 75 mg PO DAILY Blood Thinner 12/07/17 02/23/24 History empagliflozin 25 mg tablet 25 mg PO DAILY Diabetes 12/07/17 02/23/24 History (Jardiance) fenofibrate 160 mg tablet 160 mg PO DAILY UNKNOWN 12/07/17 02/23/24 History metformin 1,000 mg tablet 1,000 mg PO BID Diabetes 12/07/17 02/23/24 History ramipril 10 mg capsule 10 mg PO DAILY blood pressure 12/07/17 02/23/24 History rosuvastatin 20 mg tablet 20 mg PO DAILY High cholesterol 12/07/17 02/23/24 History glimepiride 4 mg tablet 1 mg PO BID Diabetes 10/29/21 02/23/24 History semaglutide 14 mg tablet (Rybelsus) 14 mg PO DAILY Diabetes 04/06/23 02/23/24 History famotidine 20 mg tablet 40 mg PO DAILY gerd 05/11/23 02/24/24 History metoprolol succinate 25 mg 25 mg PO DAILY bp 05/11/23 02/23/24 History tablet,extended release 24 hr New Prescriptions to Start Prescriptions: Allergies Allergy/AdvReac Type Severity Reaction Status Date / Time No Known Allergies Allergy Verified 10/13/23 11:29 Exam Data for Last 24 hours Vital signs and Labs for Last 24 Hours: Temp Pulse Resp BP Pulse Ox O2 Del Method 98.0 F 76 19 121/92 H 94 L Room Air 02/23/24 19:39 02/23/24 19:39 02/23/24 19:39 02/23/24 19:39 02/23/24 18:30 02/23/24 19:39 Laboratory Results - last 24 hr 02/23/24 11:29: Chlamy pneumoniae PCR Not detected, Adenovirus (PCR) Not detec purnima, B. pertussis DNA (PCR) Not detected, Coronavirus OC43 (PCR) Not detected, Coronavirus HKU1 (PCR) Not detected, Coronavirus 229E (PCR) Not detected, SARS-CoV-2 (PCR) Not detected 02/23/24 11:29: SARS-CoV-2 (PCR) Not detected, Coronavirus NL63 (PCR) Not detected, Human Metapneumovir PCR Not detected, Influenza A (H1) PCR Not detected, Influ A (H1N1/09) PCR Not detected, Influenza A (H3) PCR Not detected, Influenza Type A (PCR) Not detected, Influenza A Untype (PCR) Not detected, Influenza Type B (PCR) Not detected 02/23/24 11:29: Influenza Type B (PCR) Not detected, M. pneumoniae (PCR) Not detected, Parainfluenza 1 (PCR) Not detected, Parainfluenza 2 (PCR) Not detected, Parainfluenza 3 (PCR) Not detected, Parainfluenza 4 (PCR) Not detected, RSV (PCR) Not detected, Entero/Rhino (PCR) Not detected 02/23/24 11:34: WBC 7.5, RBC 4.36 L, Hgb 10.1 L, Hct 32.5 L, MCV 74.6 L, MCH 23.1 L, MCHC 31.0 L, RDW 17.9 H, Plt Count 374, MPV 8.0, Neut % (Auto) 60.1, Lymph % (Auto) 31.2, [place] % (Auto) 6.4, Eos % (Auto) 1.3, Baso % (Auto) 0.9, Neut # (Auto) 4.5, Lymph # (Auto) 2.3, [place] # (Auto) 0.5, Eos # (Auto) 0.1, Baso # (Auto) 0.1, Sodium 136, Potassium 4.3, Chloride 101, Carbon Dioxide 19 L, Anion Gap 20.3 H, BUN 55 H, Creatinine 3.10 H, Estimated Creat Clear 35, Estimated GFR 20 L, Est GFR ( Amer) 24 L, Glucose 97, Lactate 6.4 H, Calcium 9.4, Total Bilirubin 0.4, AST 76 H, ALT 35, Alkaline Phosphatase 61, NT-Pro-B Natriuret Pep 1100 H, Total Protein 5.6 L D, Albumin 3.0 L, Globulin 2.6, Albumin/Globulin Ratio 1.2, TSH 3.33, Thyroxine (T4) 6.8, Acetone Level None detected 02/23/24 12:47: Lipase 491 H 02/23/24 13:05: VBG pH 7.42 H, VBG pCO2 29.2 L, VBG pO2 48.0 H, VBG HCO3 18.5 L, VBG Total CO2 19.4 L, VBG O2 Saturation 85.7 H, VBG Base Excess -5.0 L, VBG Lactic Acid 7.1 H 02/23/24 14:38: Urine Color Yellow, Urine Appearance Clear, Urine pH 5.5, Ur Specific [place] >= 1.030, Urine Protein Trace, Urine Glucose (UA) 1+, Urine Ketones Negative, Urine Blood Negative, Urine Nitrate Negative, Urine Bilirubin 1+ A, Urine Urobilinogen 0.2, Ur Leukocyte Esterase Negative, Urine RBC None, Urine WBC Occasional, Urine Bacteria 1+, Hyaline Casts 5-10 02/23/24 17:27: Lactate 3.7 H I & O for Last 24 hours: Intake & Output 02/20/24 02/21/24 02/22/24 02/23/24 23:59 23:59 23:59 23:59 Weight 124.738 kg Constitutional Constitutional: mild distress, obese, diaphoretic and cooperative *Routine HEENT Exam Head: Present normocephalic Eye: Present EOMI and PERRL ENT: Present mucous membranes moist *Routine Neck Exam Neck: Present supple; Absent lymphadenopathy *Routine Respiratory Exam Respiratory: Present CTA bilaterally *Routine Cardiovascular Exam Cardiovascular: Present RRR *Routine Abdominal Exam Abdominal: Present soft, normoactive bowel sounds, tenderness and distended *Routine Rectal Exam Rectal:: deferred *Routine Genitalia Exam Genitalia:: deferred *Routine Extremities Exam Extremities: Absent cyanosis, clubbing or edema *Routine Skin Exam Skin: Present warm; Absent rash *Routine Neurological Exam Neurological: Present alert, oriented X3, normal reflexes and moving all extremities Routine Psychiatric Exam Psychiatric: Present good insight H&P: Result Imaging and Cardiology EKG: Status: image reviewed by me, Preliminary report and final report CT scan - abdomen: Status: image reviewed by me, Preliminary report and final report CT scan - chest: Status: image reviewed by me, Preliminary report and final report Assessment and Plan *Assessment and plan (1) Acute pancreatitis: Status: Acute Qualifiers: Pancreatitis type: other Acute pancreatitis complication: unspecified Qualified Code(s): K85.80 - Other acute pancreatitis without necrosis or infection Category: Medical Code(s): K85.90 - Acute pancreatitis without necrosis or infection, unspecified (2) Abdominal ascites: Status: Acute Qualifiers: Ascites type: other type Qualified Code(s): R18.8 - Other ascites Category: Medical Code(s): R18.8 - Other ascites (3) Acidosis, lactic: Status: Acute Category: Medical Code(s): E87.20 - Acidosis, unspecified (4) Mass of mediastinum: Status: Acute Category: Medical Code(s): J98.59 - Other diseases of mediastinum, not elsewhere classified (5) [place] (acute kidney injury): Status: Acute Category: Medical Code(s): N17.9 - Acute kidney failure, unspecified (6) Diabetes: Status: Acute Qualifiers: Diabetes mellitus type: type 2 Diabetes mellitus longterm insulin use: without longterm use Diabetes mellitus complication status: with other specified complication Qualified Code(s): E11.69 - Type 2 diabetes mellitus with other specified complication Category: Medical Code(s): E11.9 - Type 2 diabetes mellitus without complications Plan 79-year-old male with a history of CAD status post CABG, hypertension, diabetes on multiples orals medications reported, hyperlipidemia presented to the emergency department with complaint of generalized malaise that has been progressively increasing symptoms for at least the last month. on arrival initial workup demonstrates significant findings as following: No leukocytosis, hemoglobin 10.1. Chemistry with elevated anion gap 20.3, lactate 6.4, BUN 55/creatinine 3.1. CTA chest with left-sided pleural effusion and patient does have mass in the subcarinal region on the left 7.7 x 2.8 cm with associated mediastinal lymphadenopathy. CT abdomen showed ascitis. lipase 491. ED called and discussed findings. Agreed for admission. Plan as follow: -Acute pancreatitis, suspected drug induced: abdominal ascitis Lactic acidosis. Improved mediatinum mass Admit patient. Dispo MedSurg Pulmonology consult. Possible bronchoscopy with ultrasound Continue gentle IV fluid. May advance diet as tolerated CT of the abdomen reviewed Abdominal ultrasound ordered Monitor. Repeat labs in the morning -Acute kidney injury: Hold metformin. Avoid nephrotoxic Monitor renal output Repeat CMP monitor creatinine Diabetes: Presented with hyperglycemia, reported to report oral medication Will going to hold medications in the setting of [place] Accu-Chek before meals Monitor for hypoglycemia On Plavix. Protonix for GI bleed protection, and GERD Full code
[2024-02-23] MEDS: HEPARIN SODIUM 5,000 UNIT/ML VIAL 5000 UNIT SQ (20:14)
[2024-02-23] MEDS: 0.9 % SODIUM CHLORIDE 1000ML 1,000 ML 50 ML IV (20:14)
[2024-02-23 20:36] LABS: Lactic Acid Follow up (RFLX 2) 3.3 mmol/L (0.7-2.1)
[2024-02-23 21:56] LABS: POC Glucose,Bedside 65 (70-110)
[2024-02-23 21:56] LABS: POC Glucose,Bedside 72 (70-110)
[2024-02-24] MEDS: HEPARIN SODIUM 5,000 UNIT/ML VIAL 5000 UNIT SQ ×3 (02:55→20:12)
[2024-02-24] MEDS: DEXTROSE 50% 50ML SYRINGE (CRASH CART) 50 ML IVP (02:55)
--- NOTE | 2024-02-24 03:01 | PC.NURSE ---
During rounds the tech came out and stated the patient felt very sweaty. Checked patients glucose, it was 55. pt is a&ox4. has no complaints besides feeling sweaty. vitals are stable. gave an amp of d50 and 4oz juice with bhavna crackers per protocol. will reassess pts glucose
[2024-02-24 03:19] LABS: POC Glucose,Bedside 55 (70-110)
--- NOTE | 2024-02-24 03:19 | PC.NURSE ---
pts recheck glucose was 177. will continue to monitor
[2024-02-24 03:54] VITALS: BP 100/53; PULSE 88; RESP 17; TEMP 36.4; O2SAT 94; BMI 30.4
[2024-02-24 06:08] LABS: POC Glucose,Bedside 117 (70-110)
[2024-02-24 06:11] LABS: Basophils # 0.1 K/mm3 (0-0.2); Eosinophils # 0.1 K/mm3 (0.0-0.4); Eosinophils % 1.3 % (0.1-12.0); Hematocrit 30.3 % (42.0-52.0); Hemoglobin 9.4 g/dL (14.1-18.0); Lymphocytes # 1.7 K/mm3 (0.7-4.5); Lymphocytes % 29.2 % (10-50); Mean Corpuscular HGB Conc 30.9 g/dL (31.8-35.4); Mean Corpuscular Hemoglobin 23.1 pg (27.0-31.2); Mean Corpuscular Volume 74.6 fl (80-94); Mean Platelet Volume 7.9 fl (7.4-10.4); Monocytes # 0.4 K/mm3 (0.1-1.0); Monocytes % 7.1 % (1.7-9.3); Neutrophils # 3.5 K/mm3 (1.8-7.8); Neutrophils % 61.5 % (37.0-80.0); Platelet Count 348 K/mm3 (142-424); Red Blood Count 4.07 M/mm3 (4.60-6.20); Red Cell Distribution Width 17.9 % (11.5-17.5); White Blood Count 5.7 K/mm3 (4.8-10.8)
[2024-02-24 06:21] LABS: Anion Gap 14.4 mEq/L (5-15); Blood Urea Nitrogen 54 mg/dl (9-20); Calcium 8.7 mg/dl (8.4-10.2); Carbon Dioxide 23 mmol/L (22.0-30.0); Chloride 101 mmol/L (98-107); Creatinine Clearance Estimated 30 mL/min (50-200); Estimated Glomerular Filt Rate 22 ml/min (>60); GFR (African American) 27 ML/MIN (>60); Glucose 94 mg/dl (74-100); Potassium 4.4 mmoL/L (3.5-5.1); Sodium 134 mmol/L (136-145)
[2024-02-24 07:20] VITALS: BP 115/65; PULSE 65; RESP 20; TEMP 36.6; O2SAT 96
--- NOTE | 2024-02-24 07:39 | HMH.PHAINT1 ---
Pharmacy Intervention Comments: MEDICATION RECONCILIATION COMPLETED ON PATIENT USING EXTERNAL FILL HISTORY FROM PHARMACY. -[facility] SANTIAGO, [facility]
[2024-02-24] MEDS: CLOPIDOGREL 75MG TAB 75 MG PO (09:09)
[2024-02-24] MEDS: FENOFIBRATE 54MG TABLET 162 MG PO (09:09)
[2024-02-24] MEDS: AMLODIPINE 5MG TABLET 5 MG PO (09:09)
[2024-02-24] MEDS: METOPROLOL SUCCINATE XL 25MG TABLET 25 MG PO (09:10)
[2024-02-24] MEDS: RAMIPRIL 10MG CAPSULE 10 MG PO (09:10)
[2024-02-24] MEDS: 0.9 % SODIUM CHLORIDE 1000ML 1,000 ML 50 ML IV (09:42)
--- NOTE | 2024-02-24 09:58 | P.CONS_ITS ---
History of Present Illness History of present illness: Mr. Douglas is a 79-year-old male prior smoker last month greater than 30 years ago presented to the ER complaining of diffuse malaise weakness and shortness of breath and pulmonary was called for further evaluation and management. Patient also complains of wheezing cough mostly nonproductive phlegm, treated as an outpatient basis for bronchitis followed by treatment for sinusitis with no significant improvement in his cough. Denies any subjective fevers or chills. Denies any abdominal pain. Denies any change in his bowel habits except after starting iron supplements by his cigar head perforator that led to constipation. [facility] Disclaimer: The information contained in this section may have been updated after the patient was seen, as this information can be updated by other users. Medical History (Updated 02/24/24 @ 12:21 by Rafita Lopez MD) Hilar lymphadenopathy Lung mass History of Mohs micrographic surgery for skin cancer Sleep apnea Melena Cerumen impaction Lipoma of neck Contusion of rib on left side Piriformis syndrome Surgical History History of heart bypass surgery History of cardiac catheterization History of colonoscopy History of esophagogastroduodenoscopy (EGD) Family History Other No significant family history Social History Smoking Status: Never smoker alcohol intake: never substance use type: denies use current occupational status: employed Travel in the last 8 weeks: None household members: spouse housing: house current occupational exposures/hazards: No caffeine: No Review of Systems Constitutional Constitutional: Reports anorexia, Reports body ache(s) and Reports fatigue Eyes Eyes: Denies eye discharge, Denies dry eyes, Denies irritation and Denies itchy eyes ENT Ears, Nose, Mouth, and Throat: Denies epistaxis, Denies facial pain, Denies lip swelling and Denies throat swelling *Cardiovascular Cardiovascular: Reports dyspnea and Reports dyspnea on exertion *Respiratory Respiratory: Reports chest congestion, Reports cough, Reports dyspnea, Reports dyspnea on exertion, Denies hemoptysis, Denies pain on inspiration, Denies pain with cough and Denies wheezing *Gastrointestinal Gastrointestinal: Denies abdominal pain, Denies belching and Denies cramping *Musculoskeletal Musculoskeletal: Denies back pain Psychiatric Psychiatric: Denies homicidal ideation and Denies suicidal ideation Endocrine Endocrine: Reports fatigue and Denies heat intolerance Hematologic/Lymphatic Hematologic/Lymphatic: Denies easy bleeding and Denies lymphadenopathy Allergic/Immunologic Allergic/Immunologic: Denies itchy eyes, Denies lip swelling, Denies throat swelling and Denies wheezing Pulmonology Exam Inpatient Vital signs and Labs for Last 24 Hours: Temp Pulse Resp BP Pulse Ox O2 Del Method 97.8 F 65 20 115/65 96 Room Air 02/24/24 07:20 02/24/24 07:20 02/24/24 07:20 02/24/24 07:20 02/24/24 07:20 02/24/24 07:20 Laboratory Results - last 24 hr 02/23/24 11:29: Chlamy pneumoniae PCR Not detected, Adenovirus (PCR) Not detected, B. pertussis DNA (PCR) Not detected, Coronavirus OC43 (PCR) Not detected, Coronavirus HKU1 (PCR) Not detected, Coronavirus 229E (PCR) Not detected, SARS-CoV-2 (PCR) Not detected 02/23/24 11:29: SARS-CoV-2 (PCR) Not detected, Coronavirus NL63 (PCR) Not detected, Human Metapneumovir PCR Not detected, Influenza A (H1) PCR Not detected, Influ A (H1N1/09) PCR Not detected, Influenza A (H3) PCR Not detected, Influenza Type A (PCR) Not detected, Influenza A Untype (PCR) Not detected, Influenza Type B (PCR) Not detected 02/23/24 11:29: Influenza Type B (PCR) Not detected, M. pneumoniae (PCR) Not detected, Parainfluenza 1 (PCR) Not detected, Parainfluenza 2 (PCR) Not detected, Parainfluenza 3 (PCR) Not detected, Parainfluenza 4 (PCR) Not detected, RSV (PCR) Not detected, Entero/Rhino (PCR) Not detected 02/23/24 11:34: WBC 7.5, RBC 4.36 L, Hgb 10.1 L, Hct 32.5 L, MCV 74.6 L, MCH 23.1 L, MCHC 31.0 L, RDW 17.9 H, Plt Count 374, MPV 8.0, Neut % (Auto) 60.1, Lymph % (Auto) 31.2, Johnson % (Auto) 6.4, Eos % (Auto) 1.3, Baso % (Auto) 0.9, Neut # (Auto) 4.5, Lymph # (Auto) 2.3, Johnson # (Auto) 0.5, Eos # (Auto) 0.1, Baso # (Auto) 0.1, Sodium 136, Potassium 4.3, Chloride 101, Carbon Dioxide 19 L, A nion Gap 20.3 H, BUN 55 H, Creatinine 3.10 H, Estimated Creat Clear 35, E stimated GFR 20 L, Est GFR ( Amer) 24 L, Glucose 97, Lactate 6.4 H, Calcium 9.4, Total Bilirubin 0.4, AST 76 H, ALT 35, Alkaline Phosphatase 61, N T-Pro-B Natriuret Pep 1100 H, Total Protein 5.6 L D, Albumin 3.0 L, Globulin 2.6, Albumin/Globulin Ratio 1.2, TSH 3.33, Thyroxine (T4) 6.8, Acetone Level None detected 02/23/24 12:47: Lipase 491 H 02/23/24 13:05: VBG pH 7.42 H, VBG pCO2 29.2 L, VBG pO2 48.0 H, VBG HCO3 18.5 L, VBG Total CO2 19.4 L, VBG O2 Saturation 85.7 H, VBG Base Excess -5.0 L, VBG Lactic Acid 7.1 H 02/23/24 14:38: Urine Color Yellow, Urine Appearance Clear, Urine pH 5.5, Ur Specific [place] >= 1.030, Urine Protein Trace, Urine Glucose (UA) 1+, Urine Ketones Negative, Urine Blood Negative, Urine Nitrate Negative, Urine Bilirubin 1+ A, Urine Urobilinogen 0.2, Ur Leukocyte Esterase Negative, Urine RBC None, Urine WBC Occasional, Urine Bacteria 1+, Hyaline Casts 5-10 02/23/24 17:27: Lactate 3.7 H 02/23/24 20:11: Lactate 3.3 H 02/23/24 20:28: POC Glucose 65 L 02/23/24 21:47: POC Glucose 72 02/24/24 02:35: POC Glucose 55 L 02/24/24 05:28: WBC 5.7, RBC 4.07 L, Hgb 9.4 L, Hct 30.3 L, MCV 74.6 L, MCH 23.1 L, MCHC 30.9 L, RDW 17.9 H, Plt Count 348, MPV 7.9, Neut % (Auto) 61.5, Lymph % (Auto) 29.2, Johnson % (Auto) 7.1, Eos % (Auto) 1.3, Baso % (Auto) 1.0, Neut # (Auto) 3.5, Lymph # (Auto) 1.7, Johnson # (Auto) 0.4, Eos # (Auto) 0.1, Baso # (Auto) 0.1, Sodium 134 L, Potassium 4.4, Chloride 101, Carbon Dioxide 23, Anion Gap 14.4, BUN 54 H, Creatinine 2.80 H, Estimated Creat Clear 30, Estimated GFR 22 L, Est GFR ( Amer) 27 L, Glucose 94, Calcium 8.7 02/24/24 06:00: POC Glucose 117 H I & O for Labs for Last 24 Hours: Intake & Output 02/21/24 02/22/24 02/23/24 02/24/24 23:59 23:59 23:59 23:59 Intake Total 970 / 970 Output Total 0 / 0 0 / 0 Balance 0 / 550 970 / 970 Weight 212 lb 4.8 oz 212 lb 4.8 oz Constitutional: Present moderate distress Head: Present normocephalic and atraumatic ENT: Present normal exam, normal oropharynx and mucous membranes moist Neck: Present normal inspection and full ROM Respiratory: Present diminished air movement and able to speak in complete sentences; Absent wheezes or crackles Cardiac: Present S1/S2, Tachycardia and radial pulses present GI: Present soft and distention; Absent tenderness or guarding Skin: Present intact; Absent cyanosis or jaundice Neuro: Present alert, awake and oriented x 3 Extremities: Present normal inspection; Absent clubbing or cyanosis Psychiatric: Present normal affect and cooperative Meds Home Medications and Allergies Home Medications Medication Instructions Recorded Confirmed Type amlodipine 5 mg tablet 5 mg PO DAILY 12/07/17 02/24/24 History clopidogrel 75 mg tablet (Plavix) 75 mg PO DAILY 12/07/17 02/24/24 History empagliflozin 25 mg tablet 25 mg PO DAILY 12/07/17 02/24/24 History (Jardiance) fenofibrate 160 mg tablet 160 mg PO DAILY 12/07/17 02/24/24 History metformin 1,000 mg tablet 1,000 mg PO BID 12/07/17 02/24/24 History ramipril 10 mg capsule 10 mg PO DAILY 12/07/17 02/24/24 History semaglutide 14 mg tablet (Rybelsus) 14 mg PO DAILY 04/06/23 02/24/24 History metoprolol succinate 25 mg 25 mg PO DAILY 05/11/23 02/24/24 History tablet,extended release 24 hr rosuvastatin 20 mg tablet 20 mg PO DAILY 02/24/24 02/24/24 History New Prescriptions to Start Prescriptions: Allergies Allergy/AdvReac Type Severity Reaction Status Date / Time No Known Allergies Allergy Verified 10/13/23 11:29 Results Laboratory Findings 02/24/24 05:28 02/24/24 05:28 Abnormal lab findings: Abnormal Labs 02/23/24 02/23/24 02/23/24 11:34 12:47 13:05 RBC 4.36 L Hgb 10.1 L Hct 32.5 L MCV 74.6 L MCH 23.1 L MCHC 31.0 L RDW 17.9 H VBG pH 7.42 H VBG pCO2 29.2 L VBG pO2 48.0 H VBG HCO3 18.5 L VBG Total CO2 19.4 L VBG O2 Saturation 85.7 H VBG Base Excess -5.0 L VBG Lactic Acid 7.1 H Sodium Carbon Dioxide 19 L Anion Gap 20.3 H BUN 55 H Creatinine 3.10 H Estimated GFR 20 L Est GFR ( Amer) 24 L POC Glucose Lactate 6.4 H AST 76 H NT-Pro-B Natriuret Pep 1100 H Total Protein 5.6 L D Albumin 3.0 L Lipase 491 H Urine Bilirubin 02/23/24 02/23/24 02/23/24 14:38 17:27 20:11 RBC Hgb Hct MCV MCH MCHC RDW VBG pH VBG pCO2 VBG pO2 VBG HCO3 VBG Total CO2 VBG O2 Saturation VBG Base Excess VBG Lactic Acid Sodium Carbon Dioxide Anion Gap BUN Creatinine Estimated GFR Est GFR ( Amer) POC Glucose Lactate 3.7 H 3.3 H AST NT-Pro-B Natriuret Pep Total Protein Albumin Lipase Urine Bilirubin 1+ A 02/23/24 02/24/24 02/24/24 20:28 02:35 05:28 RBC 4.07 L Hgb 9.4 L Hct 30.3 L MCV 74.6 L MCH 23.1 L MCHC 30.9 L RDW 17.9 H VBG pH VBG pCO2 VBG pO2 VBG HCO3 VBG Total CO2 VBG O2 Saturation VBG Base Excess VBG Lactic Acid Sodium 134 L Carbon Dioxide Anion Gap BUN 54 H Creatinine 2.80 H Estimated GFR 22 L Est GFR ( Amer) 27 L POC Glucose 65 L 55 L Lactate AST NT-Pro-B Natriuret Pep Total Protein Albumin Lipase Urine Bilirubin 02/24/24 06:00 RBC Hgb Hct MCV MCH MCHC RDW VBG pH VBG pCO2 VBG pO2 VBG HCO3 VBG Total CO2 VBG O2 Saturation VBG Base Excess VBG Lactic Acid Sodium Carbon Dioxide Anion Gap BUN Creatinine Estimated GFR Est GFR ( Amer) POC Glucose 117 H Lactate AST NT-Pro-B Natriuret Pep Total Protein Albumin Lipase Urine Bilirubin Assessment and Plan *Assessment and plan (1) Abdominal ascites: Status: Acute Qualifiers: Ascites type: other type Qualified Code(s): R18.8 - Other ascites Category: Medical Code(s): R18.8 - Other ascites (2) Lung mass: Status: Acute Category: Medical Code(s): R91.8 - Other nonspecific abnormal finding of lung field (3) Hilar lymphadenopathy: Status: Acute Category: Medical Code(s): R59.0 - Localized enlarged lymph nodes (4) Mass of mediastinum: Status: Acute Category: Medical Code(s): J98.59 - Other diseases of mediastinum, not elsewhere classified Plan Ms. Douglas 79-year-old male presenting today with generalized malaise and weakness and the ER has called pulmonary regarding the concerning subcarinal mass and small left pleural effusion worrisome for malignant etiology to determine whether patient pulmonary findings can appropriately be managed at [facility] in the setting of not having any respiratory distress and being on room air and the plan was made to admit the patient for further evaluation management. CTA chest upon admission did not show any evidence of pulmonary embolism but subcarinal mass/complaints of lymphadenopathy along with small left pleural effusion. Patient does have other findings on his CT abdomen which include moderate ascites and peripancreatic stranding concerning for acute pancreatitis and possible hemorrhagic pancreatitis. He also has been taking Metformin and > 4 years. Possible differentials include primary lung cancer / primary pancreatic cancer with metastasis and thenoted ascites and effusions are from metastatic malignancy. Other possible differentials include lung mass lymphadenopathy and pleural effusion unrelated to the abdominal findings. He will benefit from outpatient bronchoscopy EBUS FNA and also from paracentesis to determine the possible etiologies of the noted abnormal findings. He is currently being actively managed for pancreatitis and [place] by primary team Afebrile. Hemodynamically stable. No evidence of leukocytosis but other lab abnormalities include hyponatremia [place] and elevated lipase in the setting of concerning pancreatitis on the imaging findings. Plan: - Duo nebs q6 HRs PRN - For the noted Lung mass and adenopathy, [facility] - No need for thoracentesis at this point of time -Management of other medical conditions not listed in this note are as per primary team # Thank you for involving pulmonary in this patient care. Will continue to follow.
--- NOTE | 2024-02-24 13:50 | EXP.PN ---
Subjective *Date: 02/24/24 *Time: 13:50 Interval history: patient is seen at bedside, denied SOB, CP, he also denied Abdominal pain Exam Data for Last 24 hours Vital signs and Labs for Last 24 Hours: Temp Pulse Resp BP Pulse Ox O2 Del Method 97.8 F 65 20 115/65 96 Room Air 02/24/24 07:20 02/24/24 07:20 02/24/24 07:20 02/24/24 07:20 02/24/24 07:20 02/24/24 09:00 Laboratory Results - last 24 hr 02/23/24 11:29: Chlamy pneumoniae PCR Not detected, Adenovirus (PCR) Not detected, B. pertussis DNA (PCR) Not detected, Coronavirus OC43 (PCR) Not detected, Coronavirus HKU1 (PCR) Not detected, Coronavirus 229E (PCR) Not detected, SARS-CoV-2 (PCR) Not detected, Coronavirus NL63 (PCR) Not detected, Human Metapneumovir PCR Not detected, Influenza A (H1) PCR Not detected, Influ A (H1N1/09) PCR Not detected, Influenza A (H3) PCR Not detected, Influenza Type A (PCR) Not detected, Influenza Type B (PCR) Not detected, M. pneumoniae (PCR) Not detected, Parainfluenza 1 (PCR) Not detected, Parainfluenza 2 (PCR) Not detected, Parainfluenza 3 (PCR) Not detected, Parainfluenza 4 (PCR) Not detected, RSV (PCR) Not detected, Entero/Rhino (PCR) Not detected 02/23/24 11:34: Acetone Level None detected 02/23/24 12:47: Lipase 491 H 02/23/24 13:05: VBG pH 7.42 H, VBG pCO2 29.2 L, VBG pO2 48.0 H, VBG HCO3 18.5 L, VBG Total CO2 19.4 L, VBG O2 Saturation 85.7 H, VBG Base Excess -5.0 L, VBG Lactic Acid 7.1 H 02/23/24 14:38: Urine Color Yellow, Urine Appearance Clear, Urine pH 5.5, Ur Specific [place] >= 1.030, Urine Protein Trace, Urine Glucose (UA) 1+, Urine Ketones Negative, Urine Blood Negative, Urine Nitrate Negative, Urine Bilirubin 1+ A, Urine Urobilinogen 0.2, Ur Leukocyte Esterase Negative, Urine RBC None, Urine WBC Occasional, Urine Bacteria 1+, Hyaline Casts 5-10 02/23/24 17:27: Lactate 3.7 H 02/23/24 20:11: Lactate 3.3 H 02/23/24 20:28: POC Glucose 65 L 02/23/24 21:47: POC Glucose 72 02/24/24 02:35: POC Glucose 55 L 02/24/24 05:28: WBC 5.7, RBC 4.07 L, Hgb 9.4 L, Hct 30.3 L, MCV 74.6 L, MCH 23.1 L, MCHC 30.9 L, RDW 17.9 H, Plt Count 348, MPV 7.9, Neut % (Auto) 61.5, Lymph % (Auto) 29.2, [place] % (Auto) 7.1, Eos % (Auto) 1.3, Baso % (Auto) 1.0, Neut # (Auto) 3.5, Lymph # (Auto) 1.7, [place] # (Auto) 0.4, Eos # (Auto) 0.1, Baso # (Auto) 0.1, Sodium 134 L, Potassium 4.4, Chloride 101, Carbon Dioxide 23, Anion Gap 14.4, BUN 54 H, Creatinine 2.80 H, Estimated Creat Clear 30, Estimated GFR 22 L, Est GFR ( Amer) 27 L, Glucose 94, Calcium 8.7 02/24/24 06:00: POC Glucose 117 H I & O for Last 24 hours: Intake & Output 02/21/24 02/22/24 02/23/24 02/24/24 23:59 23:59 23:59 23:59 Intake Total 970 / 970 Output Total 0 / 0 0 / 0 Balance 0 / 550 970 / 970 Weight 96.298 kg 96.298 kg Constitutional Constitutional: no acute distress *Routine HEENT Exam Head: Present normocephalic Eye: Present EOMI and PERRL ENT: Present mucous membranes moist *Routine Neck Exam Neck: Present supple; Absent lymphadenopathy *Routine Respiratory Exam Respiratory: Present CTA bilaterally *Routine Cardiovascular Exam Cardiovascular: Present RRR *Routine Abdominal Exam Abdominal: Present soft and normoactive bowel sounds; Absent tenderness *Routine Extremities Exam Extremities: Absent cyanosis, clubbing or edema *Routine Skin Exam Skin: Present warm; Absent rash *Routine Neurological Exam Neurological: Present alert and oriented X3 Assessment and Plan *Assessment and plan (1) Acute pancreatitis: Status: Acute Qualifiers: Acute pancreatitis complication: unspecified Pancreatitis type: other Qualified Code(s): K85.80 - Other acute pancreatitis without necrosis or infection Category: Medical Code(s): K85.90 - Acute pancreatitis without necrosis or infection, unspecified (2) Abdominal ascites: Status: Acute Qualifiers: Ascites type: other type Qualified Code(s): R18.8 - Other ascites Category: Medical Code(s): R18.8 - Other ascites (3) Acidosis, lactic: Status: Acute Category: Medical Code(s): E87.20 - Acidosis, unspecified (4) Mass of mediastinum: Status: Acute Category: Medical Code(s): J98.59 - Other diseases of mediastinum, not elsewhere classified (5) [place] (acute kidney injury): Status: Acute Category: Medical Code(s): N17.9 - Acute kidney failure, unspecified (6) Diabetes: Status: Acute Qualifiers: Diabetes mellitus type: type 2 Diabetes mellitus supervisor intermediates insulin use: without nursing home use Diabetes mellitus complication status: with other specified complication Qualified Code(s): E11.69 - Type 2 diabetes mellitus with other specified complication Category: Medical Code(s): E11.9 - Type 2 diabetes mellitus without complications Plan 79-year-old male with a history of CAD status post CABG, hypertension, diabetes on multiples orals medications reported, hyperlipidemia presented to the emergency department with complaint of generalized malaise that has been progressively increasing symptoms for at least the last month. on arrival initial workup demonstrates significant findings as following: No leukocytosis, hemoglobin 10.1. Chemistry with elevated anion gap 20.3, lactate 6.4, BUN 55/creatinine 3.1. CTA chest with left-sided pleural effusion and patient does have mass in the subcarinal region on the left 7.7 x 2.8 cm with associated mediastinal lymphadenopathy. CT abdomen showed ascitis. lipase 491. ED called and discussed findings. Agreed for admission. Plan as follow: -Acute pancreatitis, suspected drug induced: abdominal ascitis Lactic acidosis. Improved mediatinum mass Pulmonology consult. bronchoscopy with EBUS as OP per pulmonary Continue gentle IV fluid. advance diet as tolerated CT of the abdomen reviewed Abdominal ultrasound ordered -Acute kidney injury: Hold metformin. Avoid nephrotoxic meds Monitor renal output Repeat CMP monitor creatinine Diabetes: Presented with hyperglycemia, reported to report oral medication Will going to hold medications in the setting of [place] Accu-Chek before meals Monitor for hypoglycemia On Plavix. Protonix for GI bleed protection, and GERD Full code likely DC tomorrow, advance to regular diet
[2024-02-24 14:04] LABS: POC Glucose,Bedside 113 (70-110)
[2024-02-24 16:00] VITALS: BP 109/56; PULSE 95; RESP 20; TEMP 36.8; O2SAT 94
--- NOTE | 2024-02-24 18:04 | PC.NURSE ---
A&Ox4. Lungs sounds clear throughout. 2+ pulses throughout. Ascites noted to abdomen, bowel sounds presents in all 4 quadrants. Pt ambulating independently to and from bathroom. family has been at bedside.
[2024-02-24 18:26] LABS: POC Glucose,Bedside 112 (70-110)
[2024-02-24 20:00] VITALS: BP 104/47; PULSE 101; RESP 18; TEMP 36.6; O2SAT 91
[2024-02-24] MEDS: ATORVASTATIN 40MG TABLET 40 MG PO (20:12)
[2024-02-24 20:32] LABS: POC Glucose,Bedside 158 (70-110)
[2024-02-24 22:17] LABS: POC Glucose,Bedside 138 (70-110)
[2024-02-25] MEDS: 0.9 % SODIUM CHLORIDE 1000ML 1,000 ML 50 ML IV ×2 (02:54→17:32)
[2024-02-25 03:09] LABS: POC Glucose,Bedside 89 (70-110)
[2024-02-25 04:00] VITALS: BP 96/50; PULSE 96; RESP 18; TEMP 37; O2SAT 93; BMI 30.4
[2024-02-25 04:00] LABS: POC Glucose,Bedside 92 (70-110)
--- NOTE | 2024-02-25 05:32 | PC.NURSE ---
patient has denied any c/o pain or n/v t/o shift, but hasn't rested much. However, has requested numerous FSBS checks and all WNL - he seems to be anxious about monitoring his glucose now and patient was reassured we could check it as many times that made him comfortable (SEE LABS TAB). Patient has stated that he feels sweaty but not visibly sweating and glove remains dry when touching patient. changed patients shirt and reassured him it wasn't wet with sweat too. Patient has been hypotensive t/o night but MAP > 60. Afebrile. Ambulated to the bathroom tonight with standby assist r/t unsteady gait.
[2024-02-25] MEDS: HEPARIN SODIUM 5,000 UNIT/ML VIAL 5000 UNIT SQ ×2 (05:47→12:27)
[2024-02-25 06:00] LABS: POC Glucose,Bedside 98 (70-110)
[2024-02-25 07:19] VITALS: BP 86/44; PULSE 96; RESP 20; TEMP 36.4; O2SAT 95
[2024-02-25] MEDS: CLOPIDOGREL 75MG TAB 75 MG PO (09:30)
[2024-02-25] MEDS: FENOFIBRATE 54MG TABLET 162 MG PO (09:31)
[2024-02-25 09:35] LABS: MANUAL DIFFERENTIAL MANUAL DIFFERENTIAL (MANUAL DIFF)
[2024-02-25 09:42] LABS: Basophils # 0.1 K/mm3 (0-0.2); Basophils % 0.9 % (0.1-2.0); Eosinophils # 0.1 K/mm3 (0.0-0.4); Eosinophils % 1.9 % (0.1-12.0); Hematocrit 31.7 % (42.0-52.0); Hemoglobin 9.8 g/dL (14.1-18.0); Lymphocytes # 2.2 K/mm3 (0.7-4.5); Lymphocytes % 31.9 % (10-50); Mean Corpuscular Hemoglobin 23.3 pg (27.0-31.2); Mean Corpuscular Volume 75.2 fl (80-94); Mean Platelet Volume 7.6 fl (7.4-10.4); Monocytes # 0.5 K/mm3 (0.1-1.0); Monocytes % 7.1 % (1.7-9.3); Neutrophils # 4.1 K/mm3 (1.8-7.8); Neutrophils % 58.2 % (37.0-80.0); Platelet Count 371 K/mm3 (142-424); Red Blood Count 4.21 M/mm3 (4.60-6.20); Red Cell Distribution Width 18.2 % (11.5-17.5)
[2024-02-25 09:45] LABS: Chloride 106 mmol/L (98-107)
[2024-02-25 09:46] LABS: Potassium 4.5 mmoL/L (3.5-5.1); Sodium 135 mmol/L (136-145)
[2024-02-25 09:49] LABS: Anion Gap 16.5 mEq/L (5-15); Blood Urea Nitrogen 57 mg/dl (9-20); Calcium 9.1 mg/dl (8.4-10.2); Carbon Dioxide 17 mmol/L (22.0-30.0); Creatinine Clearance Estimated 22 mL/min (50-200); Estimated Glomerular Filt Rate 16 ml/min (>60); GFR (African American) 19 ML/MIN (>60); Glucose 134 mg/dl (74-100)
[2024-02-25 10:12] LABS: Eosinophils % 2 % (0-3); Lymphocytes % 12 % (10-50); Monocytes % 9 % (2-9); Neutrophils % 77 % (42-76); Platelet Estimate Normal; RBC Morphology Normal; Total Cells Counted 100
[2024-02-25] MEDS: ONDANSETRON 4MG/2ML VIAL 4 MG IV (10:35)
[2024-02-25] MEDS: 0.9 % SODIUM CHLORIDE 1000ML 500 ML 999 ML IV (10:44)
[2024-02-25 10:49] VITALS: BMI 30.4
[2024-02-25 11:08] LABS: POC Glucose,Bedside 133 (70-110)
--- NOTE | 2024-02-25 12:32 | P.PN_ITS ---
Subjective *Date: 02/25/24 *Time: 12:32 Interval history: No acute respiratory events overnight. Patient denies any new respiratory complaints but complains of worsening lower swelling. Pulmonology Exam Inpatient Vital signs and Labs for Last 24 Hours: Temp Pulse Resp BP Pulse Ox O2 Del Method 97.5 F L 96 H 20 86/44 L 95 Room Air 02/25/24 07:19 02/25/24 07:19 02/25/24 07:19 02/25/24 07:19 02/25/24 07:19 02/25/24 11:00 Laboratory Results - last 24 hr 02/24/24 13:56: POC Glucose 113 H 02/24/24 17:56: POC Glucose 112 H 02/24/24 20:16: POC Glucose 158 H 02/24/24 22:04: POC Glucose 138 H 02/25/24 02:51: POC Glucose 89 02/25/24 03:52: POC Glucose 92 02/25/24 05:49: POC Glucose 98 02/25/24 09:30: WBC 7.0, RBC 4.21 L, Hgb 9.8 L, Hct 31.7 L, MCV 75.2 L, MCH 23.3 L, MCHC 31.0 L, RDW 18.2 H, Plt Count 371, MPV 7.6, Neut % (Auto) 58.2, Lymph % (Auto) 31.9, [place] % (Auto) 7.1, Eos % (Auto) 1.9, Baso % (Auto) 0.9, Neut # (Aut o) 4.1, Lymph # (Auto) 2.2, [place] # (Auto) 0.5, Eos # (Auto) 0.1, Baso # (Auto) 0.1, Total Counted 100, Neutrophils % (Manual) 77 H, Lymphocytes % (Manual) 12, Monocytes % (Manual) 9, Eosinophils % (Manual) 2, Platelet Estimate Normal, RBC Morphology Normal, Sodium 135 L, Potassium 4.5, Chloride 106, Carbon Dioxide 17 L, Anion Gap 16.5 H, BUN 57 H, Creatinine 3.70 H D, Estimated Creat Clear 22, Estimated GFR 16 L*, Est GFR ( Amer) 19 L* D, Glucose 134 H, Calcium 9.1 02/25/24 10:52: POC Glucose 133 H Temp Pulse Resp BP Pulse Ox O2 Del Method 97.8 F 65 20 115/65 96 Room Air 02/24/24 07:20 02/24/24 07:20 02/24/24 07:20 02/24/24 07:20 02/24/24 07:20 02/24/24 07:20 Laboratory Results - last 24 hr 02/23/24 11:29: Chlamy pneumoniae PCR Not detected, Adenovirus (PCR) Not detected, B. pertussis DNA (PCR) Not detected, Coronavirus OC43 (PCR) Not d etected, Coronavirus HKU1 (PCR) Not detected, Coronavirus 229E (PCR) Not detected, SARS-CoV-2 (PCR) Not detected 02/23/24 11:29: SARS-CoV-2 (PCR) Not detected, Coronavirus NL63 (PCR) Not detected, Human Metapneumovir PCR Not detected, Influenza A (H1) PCR Not detected, Influ A (H1N1/09) PCR Not detected, Influenza A (H3) PCR Not detected, Influenza Type A (PCR) Not detected, Influenza A Untype (PCR) Not detected, Influenza Type B (PCR) Not detected 02/23/24 11:29: Influenza Type B (PCR) Not detected, M. pneumoniae (PCR) Not detected, Parainfluenza 1 (PCR) Not detected, Parainfluenza 2 (PCR) Not detected, Parainfluenza 3 (PCR) Not detected, Parainfluenza 4 (PCR) Not detected, RSV (PCR) Not detected, Entero/Rhino (PCR) Not detected 02/23/24 11:34: WBC 7.5, RBC 4.36 L, Hgb 10.1 L, Hct 32.5 L, MCV 74.6 L, MCH 23.1 L, MCHC 31.0 L, RDW 17.9 H, Plt Count 374, MPV 8.0, Neut % (Auto) 60.1, Lymph % (Auto) 31.2, [place] % (Auto) 6.4, Eos % (Auto) 1.3, Baso % (Auto) 0.9, Neut # (Auto) 4.5, Lymph # (Auto) 2.3, [place] # (Auto) 0.5, Eos # (Auto) 0.1, Baso # (Auto) 0.1, Sodium 136, Potassium 4.3, Chloride 101, Carbon Dioxide 19 L, Anion Gap 20.3 H, BUN 55 H, Creatinine 3.10 H, Estimated Creat Clear 35, Estimated GFR 20 L, Est GFR ( Amer) 24 L, Glucose 97, Lactate 6.4 H, Calcium 9.4, Total Bilirubin 0.4, AST 76 H, ALT 35, Alkaline Phosphatase 61, NT-Pro-B Natriuret Pep 1100 H, Total Protein 5.6 L D, Albumin 3.0 L, Globulin 2.6, Albumin/Globulin Ratio 1.2, TSH 3.33, Thyroxine (T4) 6.8, Acetone Level None detected 02/23/24 12:47: Lipase 491 H 02/23/24 13:05: VBG pH 7.42 H, VBG pCO2 29.2 L, VBG pO2 48.0 H, VBG HCO3 18.5 L, VBG Total CO2 19.4 L, VBG O2 Saturation 85.7 H, VBG Base Excess -5.0 L, VBG Lactic Acid 7.1 H 02/23/24 14:38: Urine Color Yellow, Urine Appearance Clear, Urine pH 5.5, Ur Specific [place] >= 1.030, Urine Protein Trace, Urine Glucose (UA) 1+, Urine Ketones Negative, Urine Blood Negative, Urine Nitrate Negative, Urine Bilirubin 1+ A, Urine Urobilinogen 0.2, Ur Leukocyte Esterase Negative, Urine RBC None, Urine WBC Occasional, Urine Bacteria 1+, Hyaline Casts 5-10 02/23/24 17:27: Lactate 3.7 H 02/23/24 20:11: Lactate 3.3 H 02/23/24 20:28: POC Glucose 65 L 02/23/24 21:47: POC Glucose 72 02/24/24 02:35: POC Glucose 55 L 02/24/24 05:28: WBC 5.7, RBC 4.07 L, Hgb 9.4 L, Hct 30.3 L, MCV 74.6 L, MCH 23.1 L, MCHC 30.9 L, RDW 17.9 H, Plt Count 348, MPV 7.9, Neut % (Auto) 61.5, Lymph % (Auto) 29.2, Harper % (Auto) 7.1, Eos % (Auto) 1.3, Baso % (Auto) 1.0, Neut # (Auto) 3.5, Lymph # (Auto) 1.7, Harper # (Auto) 0.4, Eos # (Auto) 0.1, Baso # (Auto) 0.1, Sodium 134 L, Potassium 4.4, Chloride 101, Carbon Dioxide 23, Anion Gap 14.4, BUN 54 H, Creatinine 2.80 H, Estimated Creat Clear 30, Estimated GFR 22 L, Est GFR ( Amer) 27 L, Glucose 94, Calcium 8.7 02/24/24 06:00: POC Glucose 117 H I & O for Labs for Last 24 Hours: Intake & Output 02/22/24 02/23/24 02/24/24 02/25/24 23:59 23:59 23:59 23:59 Intake Total 1330 / 1690 1153 / 1153 Output Total 0 / 0 0 / 0 0 / 0 Balance 0 / 550 1330 / 1690 1153 / 1153 Weight 212 lb 4.8 oz 212 lb 4.8 oz 212 lb 3.471 oz Intake & Output 02/21/24 02/22/24 02/23/24 02/24/24 23:59 23:59 23:59 23:59 Intake Total 970 / 970 Output Total 0 / 0 0 / 0 Balance 0 / 550 970 / 970 Weight 212 lb 4.8 oz 212 lb 4.8 oz Microbiology Reports for the Last 24 Hours: Microbiology 02/23/24 13:57 Blood Blood Culture - Preliminary NO GROWTH AFTER 24 HOURS 02/23/24 13:57 Blood Blood Culture - Preliminary NO GROWTH AFTER 24 HOURS Constitutional: Present moderate distress Head: Present normocephalic and atraumatic ENT: Present normal exam, normal oropharynx and mucous membranes moist Neck: Present normal inspection and full ROM Respiratory: Present diminished air movement and able to speak in complete sentences; Absent wheezes or crackles Cardiac: Present S1/S2, Tachycardia and radial pulses present GI: Present soft and distention; Absent tenderness or guarding Skin: Present intact; Absent cyanosis or jaundice Neuro: Present alert, awake and oriented x 3 Extremities: Present normal inspection and edema; Absent clubbing or cyanosis Psychiatric: Present normal affect and cooperative Assessment and Plan *Assessment and plan (1) Lung mass: Status: Acute Category: Medical Code(s): R91.8 - Other nonspecific abnormal finding of lung field (2) Hilar lymphadenopathy: Status: Acute Category: Medical Code(s): R59.0 - Localized enlarged lymph nodes (3) Mass of mediastinum: Status: Acute Category: Medical Code(s): J98.59 - Other diseases of mediastinum, not elsewhere classified (4) Pleural effusion: Status: Acute Category: Medical Code(s): J90 - Pleural effusion, not elsewhere classified Plan Ms. Douglas 79-year-old male presenting today with generalized malaise and weakness and the ER has called pulmonary regarding the concerning subcarinal mass and small left pleural effusion worrisome for malignant etiology to determine whether patient pulmonary findings can appropriately be managed at [facility] in the setting of not having any respiratory distress and being on room air and the plan was made to admit the patient for further evaluation management. CTA chest upon admission did not show any evidence of pulmonary embolism but subcarinal mass/complaints of lymphadenopathy along with small left pleural effusion. Patient does have other findings on his CT abdomen which include moderate ascites and peripancreatic stranding concerning for acute pancreatitis and possible hemorrhagic pancreatitis. He also has been taking Metformin and > 4 years. Possible differentials include primary lung cancer / primary pancreatic cancer with metastasis and the noted ascites and effusions are from metastatic malignancy. Other possible differentials include lung mass lymphadenopathy and pleural effusion unrelated to the abdominal findings. He will benefit from outpatient bronchoscopy EBUS FNA and also from paracentesis to determine the possible etiologies of the noted abnormal findings. He is currently being actively managed for pancreatitis and [place] by primary team On admission - Afebrile. Hemodynamically stable. No evidence of leukocytosis but other lab abnormalities include hyponatremia [place] and elevated lipase in the setting of concerning pancreatitis on the imaging findings. Interval update: No acute respiratory vents overnight. Continued to remain on room air. Worsening renal function and lower extremity swelling. Abdomen distended and tense. Denies any pain. Worsening renal function plan was made to transfer Plan: - Duo nebs q6 HRs PRN - For the noted Lung mass and adenopathy, will schedule outpatient [facility] EBUS biopsy - No need for thoracentesis at this point of time -Management of other medical conditions not listed in this note are as per primary team # Thank you for involving pulmonary in this patient care. Will continue to follow.
--- NOTE | 2024-02-25 13:56 | EXP.EVENT.NO ---
1. Patient transfer was initiated to [facility] - patient was accepted but no beds available on waiting list 2. [facility] was contacted and patient was accepted, awaiting bed placement
--- NOTE | 2024-02-25 13:57 | P.PN_ITS ---
Subjective *Date: 02/25/24 *Time: 13:57 Interval history: patient is seen at bedside, denied SOB, CP, he also denied Abdominal pain, he has been having nausea but n abdominal pain Exam Data for Last 24 hours Vital signs and Labs for Last 24 Hours: Temp Pulse Resp BP Pulse Ox O2 Del Method 97.5 F L 96 H 20 86/44 L 95 Room Air 02/25/24 07:19 02/25/24 07:19 02/25/24 07:19 02/25/24 07:19 02/25/24 07:19 02/25/24 13:00 Laboratory Results - last 24 hr 02/24/24 13:56: POC Glucose 113 H 02/24/24 17:56: POC Glucose 112 H 02/24/24 20:16: POC Glucose 158 H 02/24/24 22:04: POC Glucose 138 H 02/25/24 02:51: POC Glucose 89 02/25/24 03:52: POC Glucose 92 02/25/24 05:49: POC Glucose 98 02/25/24 09:30: WBC 7.0, RBC 4.21 L, Hgb 9.8 L, Hct 31.7 L, MCV 75.2 L, MCH 23.3 L, MCHC 31.0 L, RDW 18.2 H, Plt Count 371, MPV 7.6, Neut % (Auto) 58.2, Lymph % (Auto) 31.9, [place] % (Auto) 7.1, Eos % (Auto) 1.9, Baso % (Auto) 0.9, Neut # (Auto) 4.1, Lymph # (Auto) 2.2, [place] # (Auto) 0.5, Eos # (Auto) 0.1, Baso # (Auto) 0.1, Total Counted 100, Neutrophils % (Manual) 77 H, Lymphocytes % (Manual) 12, Monocytes % (Manual) 9, Eosinophils % (Manual) 2, Platelet Estimate Normal, RBC Morphology Normal, Sodium 135 L, Potassium 4.5, Chloride 106, Carbon Dioxide 17 L, Anion Gap 16.5 H, BUN 57 H, Creatinine 3.70 H D, Estimated Creat Clear 22, Estimated GFR 16 L*, Est GFR ( Amer) 19 L* D, Glucose 134 H, Calcium 9.1 02/25/24 10:52: POC Glucose 133 H I & O for Last 24 hours: Intake & Output 02/22/24 02/23/24 02/24/24 02/25/24 23:59 23:59 23:59 23:59 Intake Total 1330 / 1690 1153 / 1153 Output Total 0 / 0 0 / 0 0 / 0 Balance 0 / 550 1330 / 1690 1153 / 1153 Weight 96.298 kg 96.298 kg 96.26 kg Microbiology Reports for the Last 24 Hours: Microbiology 02/23/24 13:57 Blood Blood Culture - Preliminary NO GROWTH AFTER 24 HOURS 02/23/24 13:57 Blood Blood Culture - Preliminary NO GROWTH AFTER 24 HOURS Constitutional Constitutional: no acute distress *Routine HEENT Exam Head: Present normocephalic Eye: Present EOMI and PERRL ENT: Present mucous membranes moist *Routine Neck Exam Neck: Present supple; Absent lymphadenopathy *Routine Respiratory Exam Respiratory: Present CTA bilaterally *Routine Cardiovascular Exam Cardiovascular: Present RRR *Routine Abdominal Exam Abdominal: Present soft, normoactive bowel sounds and distended *Routine Extremities Exam Extremities: Absent cyanosis, clubbing or edema *Routine Skin Exam Skin: Present warm; Absent rash *Routine Neurological Exam Neurological: Present alert and oriented X3 Assessment and Plan *Assessment and plan (1) Acute pancreatitis: Status: Acute Qualifiers: Acute pancreatitis complication: unspecified Pancreatitis type: other Qualified Code(s): K85.80 - Other acute pancreatitis without necrosis or infection Category: Medical Code(s): K85.90 - Acute pancreatitis without necrosis or infection, unspecified (2) Abdominal ascites: Status: Acute Qualifiers: Ascites type: other type Qualified Code(s): R18.8 - Other ascites Category: Medical Code(s): R18.8 - Other ascites (3) Acidosis, lactic: Status: Acute Category: Medical Code(s): E87.20 - Acidosis, unspecified (4) Mass of mediastinum: Status: Acute Category: Medical Code(s): J98.59 - Other diseases of mediastinum, not elsewhere classified (5) [place] (acute kidney injury): Status: Acute Category: Medical Code(s): N17.9 - Acute kidney failure, unspecified (6) Diabetes: Status: Acute Qualifiers: Diabetes mellitus type: type 2 Diabetes mellitus half-way insulin use: without terminal press operator use Diabetes mellitus complication status: with other specified complication Qualified Code(s): E11.69 - Type 2 diabetes mellitus with other specified complication Category: Medical Code(s): E11.9 - Type 2 diabetes mellitus without complications Plan 79-year-old male with a history of CAD status post CABG, hypertension, diabetes on multiples orals medications reported, hyperlipidemia presented to the emergency department with complaint of generalized malaise that has been progressively increasing symptoms for at least the last month. on arrival initial workup demonstrates significant findings as following: No leukocytosis, hemoglobin 10.1. Chemistry with elevated anion gap 20.3, lactate 6.4, BUN 55/creatinine 3.1. CTA chest with left-sided pleural effusion and patient does have mass in the subcarinal region on the left 7.7 x 2.8 cm with associated mediastinal lymphadenopathy. CT abdomen showed ascitis. lipase 491. ED called and discussed findings. Agreed for admission. Plan as follow: -Acute pancreatitis abdominal ascitis Lactic acidosis. Improved mediatinum mass Pulmonology consult. plan for bronchoscopy with EBUS as OP per pulmonary Continue gentle IV fluid advance diet as tolerated CT of the abdomen reviewed Abdominal ultrasound ordered -Acute kidney injury: worsening Hold metformin. Avoid nephrotoxic meds Monitor renal output Repeat CMP monitor creatinine Diabetes: Presented with hyperglycemia, reported to report oral medication Will going to hold medications in the setting of [place] Accu-Chek before meals Monitor for hypoglycemia On Plavix. Protonix for GI bleed protection, and GERD Full code plan for transfer to higher level of care for nephrology and oncology and pulmonary services, in the meantime we will continue IV fluids, discussed with pulmonary, agree with plan of transfer
--- NOTE | 2024-02-25 14:04 | PC.NURSE ---
report called to Aubrey rollins
--- NOTE | 2024-02-25 14:43 | EXP.DC.SUM ---
General Admission date:: 02/23/24 Discharge date: 02/25/24 HPI HPI HPI: This is a 79-year-old male with a history of CAD status post CABG, hypertension, diabetes on multiples orals medications reported, hyperlipidemia presented to the emergency department with complaint of generalized malaise that has been progressively increasing symptoms for at least the last month. Symptoms included a nonspecific cough, sinus pain and congestion, generalized weakness, fatigue, dyspnea on exertion, and abdominal discomfort. He has been seen by primary care for this and has been prescribed antibiotics twice, including 2 Z-Leo's. This did not help with symptoms. He followed up with his manufacturer's service representative thinking that it could be related to his heart, but he was told that it likely was not related to his heart. No fevers, chest pain, vomiting, rashes, swelling. He has had some nonspecific abdominal pain. He also endorses night sweats, likely related to hypoglycemias. Admitted for further work up and treatment. Hospital Course Hospital Course Hospital Course: 79-year-old male with a history of CAD status post CABG, hypertension, diabetes on multiples orals medications reported, hyperlipidemia presented to the emergency department with complaint of generalized malaise that has been progressively increasing symptoms for at least the last month. on arrival initial workup demonstrates significant findings as following: No leukocytosis, hemoglobin 10.1. Chemistry with elevated anion gap 20.3, lactate 6.4, BUN 55/creatinine 3.1. CTA chest with left-sided pleural effusion and patient does have mass in the subcarinal region on the left 7.7 x 2.8 cm with associated mediastinal lymphadenopathy. CT abdomen showed ascitis. lipase 491. ED called and discussed findings. Agreed for admission. Acute pancreatitis which seemed to be painless, concern for ascitis likely hemorrhagic pancreatitis, ASA, plavix and Heparin for DVT PPx was held, recommend ascitis fluid tap and CT with pancteas protocol [place] - worsening, recommend consultation with nephrology left Lung mass -- recommend oncology evaluation patient and agrees with transfer to [facility] for higher level of care, patient would benfeit from further management there, patient is dischagred in stable condition. Exam Data for Last 24 hours Vital signs and Labs for Last 24 Hours: Temp Pulse Resp BP Pulse Ox O2 Del Method 97.5 F L 96 H 20 86/44 L 95 Room Air 02/25/24 07:19 02/25/24 07:19 02/25/24 07:19 02/25/24 07:19 02/25/24 07:19 02/25/24 13:00 Laboratory Results - last 24 hr 02/24/24 17:56: POC Glucose 112 H 02/24/24 20:16: POC Glucose 158 H 02/24/24 22:04: POC Glucose 138 H 02/25/24 02:51: POC Glucose 89 02/25/24 03:52: POC Glucose 92 02/25/24 05:49: POC Glucose 98 02/25/24 09:30: WBC 7.0, RBC 4.21 L, Hgb 9.8 L, Hct 31.7 L, MCV 75.2 L, MCH 23.3 L, MCHC 31.0 L, RDW 18.2 H, Plt Count 371, MPV 7.6, Neut % (Auto) 58.2, Lymph % (Auto) 31.9, [place] % (Auto) 7.1, Eos % (Auto) 1.9, Baso % (Auto) 0.9, Neut # (Auto) 4.1, Lymph # (Auto) 2.2, [place] # (Auto) 0.5, Eos # (Auto) 0.1, Baso # (Auto) 0.1, Total Counted 100, Neutrophils % (Manual) 77 H, Lymphocytes % (Manual) 12, Monocytes % (Manual) 9, Eosinophils % (Manual) 2, Platelet Estimate Normal, RBC Morphology Normal, Sodium 135 L, Potassium 4.5, Chloride 106, Carbon Dioxide 17 L, Anion Gap 16.5 H, BUN 57 H, Creatinine 3.70 H D, Estimated Creat Clear 22, Estimated GFR 16 L*, Est GFR ( Amer) 19 L* D, Glucose 134 H, Calcium 9.1 02/25/24 10:52: POC Glucose 133 H I & O for Last 24 hours: Intake & Output 02/22/24 02/23/24 02/24/24 02/25/24 23:59 23:59 23:59 23:59 Intake Total 1330 / 1690 1153 / 1153 Output Total 0 / 0 0 / 0 0 / 0 Balance 0 / 550 1330 / 1690 1153 / 1153 Weight 96.298 kg 96.298 kg 96.26 kg Microbiology Reports for the Last 24 Hours: Microbiology 02/23/24 13:57 Blood Blood Culture - Preliminary NO GROWTH AFTER 48 HOURS 02/23/24 13:57 Blood Blood Culture - Preliminary NO GROWTH AFTER 48 HOURS Results Data Completed and Pending Labs on day of discharge: Labs from last 24 hours 02/25/24 02/25/24 02/25/24 10:52 09:30 05:49 WBC 7.0 RBC 4.21 L Hgb 9.8 L Hct 31.7 L MCV 75.2 L MCH 23.3 L MCHC 31.0 L RDW 18.2 H Plt Count 371 MPV 7.6 Neut % (Auto) 58.2 Lymph % (Auto) 31.9 [place] % (Auto) 7.1 Eos % (Auto) 1.9 Baso % (Auto) 0.9 Neut # (Auto) 4.1 Lymph # (Auto) 2.2 [place] # (Auto) 0.5 Eos # (Auto) 0.1 Baso # (Auto) 0.1 Total Counted 100 Neutrophils % (Manual) 77 H Lymphocytes % (Manual) 12 Monocytes % (Manual) 9 Eosinophils % (Manual) 2 Platelet Estimate Normal RBC Morphology Normal Sodium 135 L Potassium 4.5 Chloride 106 Carbon Dioxide 17 L Anion Gap 16.5 H BUN 57 H Creatinine 3.70 H D Estimated Creat Clear 22 Estimated GFR 16 L* Est GFR ( Amer) 19 L* D Glucose 134 H POC Glucose 133 H 98 Calcium 9.1 02/25/24 02/25/24 02/24/24 03:52 02:51 22:04 WBC RBC Hgb Hct MCV MCH MCHC RDW Plt Count MPV Neut % (Auto) Lymph % (Auto) [place] % (Auto) Eos % (Auto) Baso % (Auto) Neut # (Auto) Lymph # (Auto) [place] # (Auto) Eos # (Auto) Baso # (Auto) Total Counted Neutrophils % (Manual) Lymphocytes % (Manual) Monocytes % (Manual) Eosinophils % (Manual) Platelet Estimate RBC Morphology Sodium Potassium Chloride Carbon Dioxide Anion Gap BUN Creatinine Estimated Creat Clear Estimated GFR Est GFR ( Amer) Glucose POC Glucose 92 89 138 H Calcium 02/24/24 02/24/24 20:16 17:56 WBC RBC Hgb Hct MCV MCH MCHC RDW Plt Count MPV Neut % (Auto) Lymph % (Auto) [place] % (Auto) Eos % (Auto) Baso % (Auto) Neut # (Auto) Lymph # (Auto) [place] # (Auto) Eos # (Auto) Baso # (Auto) Total Counted Neutrophils % (Manual) Lymphocytes % (Manual) Monocytes % (Manual) Eosinophils % (Manual) Platelet Estimate RBC Morphology Sodium Potassium Chloride Carbon Dioxide Anion Gap BUN Creatinine Estimated Creat Clear Estimated GFR Est GFR ( Amer) Glucose POC Glucose 158 H 112 H Calcium Preliminary micro results at discharge 02/23/24 13:57 Blood Culture - Preliminary Blood NO GROWTH AFTER 48 HOURS 02/23/24 13:57 Blood Culture - Preliminary Blood NO GROWTH AFTER 48 HOURS DS: Diagnosis Discharge Diagnosis (1) Acute pancreatitis: Status: Acute Code(s): K85.90 - Acute pancreatitis without necrosis or infection, unspecified Qualifiers: Acute pancreatitis complication: unspecified Pancreatitis type: other Qualified Code(s): K85.80 - Other acute pancreatitis without necrosis or infection (2) Abdominal ascites: Status: Acute Code(s): R18.8 - Other ascites Qualifiers: Ascites type: other type Qualified Code(s): R18.8 - Other ascites (3) Acidosis, lactic: Status: Acute Code(s): E87.20 - Acidosis, unspecified (4) Mass of mediastinum: Status: Acute Code(s): J98.59 - Other diseases of mediastinum, not elsewhere classified (5) [place] (acute kidney injury): Status: Acute Code(s): N17.9 - Acute kidney failure, unspecified (6) Diabetes: Status: Acute Code(s): E11.9 - Type 2 diabetes mellitus without complications Qualifiers: Diabetes mellitus type: type 2 Diabetes mellitus intermediate card tender insulin use: without jail use Diabetes mellitus complication status: with other specified complication Qualified Code(s): E11.69 - Type 2 diabetes mellitus with other specified complication Meds Home Medications and Allergies Home Medications Medication Instructions Recorded Confirmed Type amlodipine 5 mg tablet 5 mg PO DAILY 12/07/17 02/24/24 History clopidogrel 75 mg tablet (Plavix) 75 mg PO DAILY 12/07/17 02/24/24 History empagliflozin 25 mg tablet 25 mg PO DAILY 12/07/17 02/24/24 History (Jardiance) fenofibrate 160 mg tablet 160 mg PO DAILY 12/07/17 02/24/24 History metformin 1,000 mg tablet 1,000 mg PO BID 12/07/17 02/24/24 History ramipril 10 mg capsule 10 mg PO DAILY 12/07/17 02/24/24 History semaglutide 14 mg tablet (Rybelsus) 14 mg PO DAILY 04/06/23 02/24/24 History metoprolol succinate 25 mg 25 mg PO DAILY 05/11/23 02/24/24 History tablet,extended release 24 hr rosuvastatin 20 mg tablet 20 mg PO DAILY 02/24/24 02/24/24 History New Prescriptions to Start Prescriptions: Allergies Allergy/AdvReac Type Severity Reaction Status Date / Time No Known Allergies Allergy Verified 10/13/23 11:29 Discharge Plan Disposition Patient Disposition: Xfer Short-Term Hosp Condition: Good Discharge Order Discharge Orders: Discharge Order (Routine); Ordered 02/25/24 Ordered By: Corry Reynaga Follow up Plan Prescriptions/Medication Reconciliation: Continued Rybelsus 14 mg tablet 14 mg PO DAILY metoprolol succinate 25 mg tablet extended release 24 hr 25 mg PO DAILY clopidogrel [Plavix] 75 MG tablet 75 mg PO DAILY amlodipine 5 MG tablet 5 mg PO DAILY metformin 1,000 MG tablet 1,000 mg PO BID ramipril 10 MG capsule 10 mg PO DAILY fenofibrate 160 MG tablet 160 mg PO DAILY Jardiance 25 MG tablet 25 mg PO DAILY rosuvastatin 20 mg tablet 20 mg PO DAILY Other Ambulatory Orders: Home Medical Equipment (Routine) Location: None Selected Ordered By: Corry Reynaga Problem Reconciliation Problems Reviewed?: Yes Patient Discharge Instructions ACTIVITY: Ambulate as tolerated DIET: continue same diet Stand Alone Forms: Transfer Record Patient Instructions: DI for Pancreatitis, Acute Kidney Injury, DI for Shortness of Breath, How to Manage Shortness of Breath Providers Primary Care Provider: Michael Tejeda Admit Provider: Corry Reynaga Attending Provider: Corry Reynaga
[2024-02-25 15:37] VITALS: BP 90/44; PULSE 96; RESP 17; TEMP 36.8; O2SAT 95
[2024-02-25 16:57] LABS: POC Glucose,Bedside 130 (70-110)
--- NOTE | 2024-02-25 17:07 | PC.NURSE ---
pt is A&Ox4, on room air. lung sounds clear, but has a cough when talking. Has not complained of any pain throughout the day but did complain of nausea earlier in the day. Zofran was administered. Family has remained at bedside the majority of the day. The original plan was to transfer pt to [facility]. However after calling report to [facility], family changed their mind and would prefer to stay and wait for a bed at [facility]. Pt is currently resting and call light within reach.
--- NOTE | 2024-02-25 18:26 | PC.NURSE ---
Mellisa communicated that still no beds available
[2024-02-25 20:00] VITALS: BP 103/55; PULSE 106; RESP 16; TEMP 36.8; O2SAT 93
[2024-02-25] MEDS: ATORVASTATIN 40MG TABLET 40 MG PO (20:11)
[2024-02-25 20:19] LABS: POC Glucose,Bedside 163 (70-110)
[2024-02-25 22:48] LABS: POC Glucose,Bedside 132 (70-110)
--- NOTE | 2024-02-26 00:14 | PC.NURSE ---
tried to give report to nurse at [facility], nurse stated that they are wanting me to tell everyone to wait and call with report when transport is there to get the pt. , will attempt to call report when ems is here to get pt.
--- NOTE | 2024-02-26 00:42 | PC.NURSE ---
pt left floor with ems at this time
--- NOTE | 2024-02-26 01:21 | PC.NURSE ---
report called to devin at [facility] at [id number]
[2024-02-26 08:17] LABS: CA 19-9 8 U/mL (0-35)
== END 2024-02-26 00:40 | disposition short-term general hospital (02) | DRG 438 ==
LOC: ER 17:05 → 2ND 18:36
PROVIDERS: Emergency Medicine; Internal Medicine Pulmonary Disease; Admitting Provider Internal Medicine; Emergency Provider Emergency Medicine; PCP Internal Medicine; Visit Provider Internal Medicine
DX: K85.90 Acute pancreatitis without necrosis or infection, unspecified (principal); J98.59 Other diseases of mediastinum, not elsewhere classified; E87.20 Acidosis, unspecified; N17.9 Acute kidney failure, unspecified; R18.8 Other ascites; E87.1 Hypo-osmolality and hyponatremia; I25.10 Atherosclerotic heart disease of native coronary artery without angina pectoris; Z95.1 Presence of aortocoronary bypass graft; E11.9 Type 2 diabetes mellitus without complications; Z79.84 Long term (current) use of oral hypoglycemic drugs; I10 Essential (primary) hypertension; Z79.85 Long-term (current) use of injectable non-insulin antidiabetic drugs; E78.5 Hyperlipidemia, unspecified; Z85.828 Personal history of other malignant neoplasm of skin; R91.8 Other nonspecific abnormal finding of lung field
CPT/HCPCS: 36415; 70470; 71275; 74177; 80048; 80053; 81001; 82009; 82803; 82962; 83605; 83690; 83880; 84436; 84443; 85007; 85014; 85018; 85025; 85048; 85049; 86301; 87040; 87581; 87632; 87635; 87636; 87798; 93005; 93306; 99291; J2405; J7120; Q9967